=== PATIENT | male | born 1995 | race Caucasian/White ===

== ENCOUNTER 2016-06-26 16:14 | Emergency (ER) | payer OTHER ==
[~2016-06-26] VITALS: Ht 185.4 cm; Wt 72.6 kg
[~2016-06-26 16:14] MED LIST: 'BUSPAR5 MG PO; AMITRIPTYLINE10 MG PO; AUGMENTIN 875 M1 TA1 PO; BENTYL PO; BENTYL10 MG PO; BUSPAR5 MG PO; CARAFATE1 G1 PO; CARAFATE1 GM PO; CELEXA20 MG PO; Carafate1 GM PO; FAMOTIDINE20 M1 PO; FLEXERIL10 MG PO; FLOMAX0.4 MG PO; HYDROCODONE BIT1 T11 PO; IBU-8800 MG PO; KEFLEX500 MG PO; LEVEMIR FLEX100 U/ML SC; MARINOL2.5 M1 PO; MOTRIN800 MG PO; MUCINEX600 MG PO; NAPROSYN500 MG PO; NKHM; NORTRIPTYLINE H10 M1 PO; NORTRIPTYLINE H10 MG PO; NORTRIPTYLINE PO; NOVOLOG FLEX100 U/ML SQ; OMEPRAZOLE40 MG PO; OXYCODONE HCL5 MG PO; PEN NEEDLE1 EAC5 MC; PEN-VK500 MG; PERCOCET 325 MG1 TA2 PO; PERCOCET 325 MG1 TA5 PO; PHENERGAN12.5 MG R; PHENERGAN25 MG R; PREDNISONE10 MG PO; PROTONIX IV40 MG PO; PROTONIX40 MG PO; Percocet 325 MG1 TAB PO; Phenergan25 MG PO; REGLAN5 MG PO; TEST STRIPS1 EACH MC; ULTRAM50 MG PO; VICODIN 5/500 505 MG PO; ZITHROMAX Z PA250 MG PO; ZOFRAN ODT4 MG SL; ZOFRAN4 MG PO; Zofran4 MG PO; [UNRECOGNIZED DRUG - OTHER] SC
[2016-06-26 16:56] LABS: BASO # 0.1 10*3/uL (0.0-0.1); BASO % 1.5 % (0.0-1.0); EOS # 0.1 10*3/uL (0.0-0.4); EOS % 2.2 % (1.0-4.0); HEMATOCRIT 38.8 % (42.0-52.0); HEMOGLOBIN 13.3 g/dl (14.0-18.0); LYMPH # 2.2 10*3/uL (1.3-4.4); LYMPH % 38.1 % (27.0-41.0); MEAN CELL VOLUME 88.2 fl (80.0-94.0); MEAN CORPUSCULAR HGB 30.2 pg (27.0-31.0); MEAN CORPUSCULAR HGB CONC 34.3 g/dl (33.0-37.0); MEAN PLATELET VOLUME 9.7 fl (9.6-12.3); MONO # 0.4 10*3/uL (0.1-1.0); MONO % 7.5 % (3.0-9.0); NEUT # 2.9 10*3/uL (2.3-7.9); NEUT % 50.4 % (47.0-73.0); PLATELET COUNT AUTOMATED 204 10*3/uL (130-400); RED CELL DISTRI WIDTH 12.5 % (0-14.5); WHITE BLOOD COUNT 5.8 10*3/uL (4.8-10.8)
[2016-06-26 17:13] LABS: ALBUMIN 3.7 gm/dl (3.1-4.5); ALKALINE PHOSPHATASE 68 U/L (45-117); BILIRUBIN, TOTAL 0.8 mg/dl (0.2-1.0); BUN 16 mg/dl (7-24); CARBON DIOXIDE 29 mmol/L (21-32); CHLORIDE 104 mmol/L (98-107); EST GLOM FILT AFRICAN AMERICAN > 60 ml/min; GLUCOSE 182 mg/dL (65-99); POTASSIUM 3.7 mmol/L (3.5-5.1); SGOT/AST 19 IU/L (3-35); SGPT/ALT 36 U/L (12-78); SODIUM 141 mmol/L (136-145); TOTAL PROTEIN 6.6 gm/dL (6.4-8.2)
[2016-06-26] MEDS ORDERED: NAPROSYN500 MG PO (18:13)
[2016-06-26] MEDS ORDERED: ZOFRAN4 MG PO (18:13)
== END 2016-06-26 18:24 | disposition home or self-care (01) ==
LOC: ED 16:14
PROVIDERS: Nurse Practitioner Family
DX: S39.011A Strain of muscle, fascia and tendon of abdomen, initial encounter (principal); R03.0 Elevated blood-pressure reading, without diagnosis of hypertension; J45.909 Unspecified asthma, uncomplicated; F41.1 Generalized anxiety disorder; E10.9 Type 1 diabetes mellitus without complications; Z88.8 Allergy status to other drugs, medicaments and biological substances; Z79.899 Other long term (current) drug therapy; X58.XXXA Exposure to other specified factors, initial encounter; Y93.89 Activity, other specified; Y92.89 Other specified places as the place of occurrence of the external cause; Y99.9 Unspecified external cause status

== ENCOUNTER 2016-11-06 08:41 | Emergency (ER) | payer OTHER ==
[~2016-11-06] VITALS: Ht 182.8 cm; Wt 70.3 kg
[2016-11-06 09:27] LABS: BASO # 0.1 10*3/uL (0.0-0.1); BASO % 1.6 % (0.0-1.0); EOS # 0.1 10*3/uL (0.0-0.4); EOS % 2.7 % (1.0-4.0); HEMATOCRIT 42.8 % (42.0-52.0); HEMOGLOBIN 14.3 g/dl (14.0-18.0); LYMPH # 1.8 10*3/uL (1.3-4.4); LYMPH % 41.7 % (27.0-41.0); MEAN CELL VOLUME 87.3 fl (80.0-94.0); MEAN CORPUSCULAR HGB 29.2 pg (27.0-31.0); MEAN CORPUSCULAR HGB CONC 33.4 g/dl (33.0-37.0); MONO # 0.4 10*3/uL (0.1-1.0); MONO % 8.8 % (3.0-9.0); NEUT % 45.2 % (47.0-73.0); PLATELET COUNT AUTOMATED 219 10*3/uL (130-400); RED CELL DISTRI WIDTH 12.4 % (0-14.5); WHITE BLOOD COUNT 4.4 10*3/uL (4.8-10.8)
[2016-11-06 09:34] LABS: PROTHROMBIN TIME 10.6 SECONDS (9.0-12.4)
[2016-11-06 09:37] LABS: BILIRUBIN NEGATIVE (NEGATIVE); BLOOD NEGATIVE (NEGATIVE); CLARITY CLEAR (CLEAR); COLOR YELLOW (YELLOW); GLUCOSE NEGATIVE (NEGATIVE); KETONE NEGATIVE (NEGATIVE); LEUKO ESTERASE NEGATIVE (NEGATIVE); NITRITE NEGATIVE (NEGATIVE); PROTEIN NEGATIVE (NEGATIVE); UROBILINOGEN 0.2 E.U./dl (0.2-1.0)
[2016-11-06 09:41] LABS: ALBUMIN 3.7 gm/dl (3.1-4.5); ALKALINE PHOSPHATASE 68 U/L (45-117); BILIRUBIN, TOTAL 0.3 mg/dl (0.2-1.0); BUN 15 mg/dl (7-24); CARBON DIOXIDE 27 mmol/L (21-32); CHLORIDE 108 mmol/L (98-107); CKMB 0.7 ng/ml (0.5-3.6); CPK 98 U/L (39-308); EST GLOM FILT AFRICAN AMERICAN > 60 ml/min; GLUCOSE 132 mg/dL (65-99); MAGNESIUM 2.4 mg/dL (1.5-2.1); POTASSIUM 4.3 mmol/L (3.5-5.1); SGOT/AST 11 IU/L (3-35); SGPT/ALT 18 U/L (12-78); SODIUM 139 mmol/L (136-145); TOTAL PROTEIN 6.8 gm/dL (6.4-8.2)
[2016-11-06 09:46] LABS: URINE REFLEX COMMENT NO (NO)
[2016-11-06 09:53] LABS: C-REACTIVE PROTEIN < 0.29 MG/DL (0-0.3); TROPONIN I < 0.015 ng/ml (<0.045)
== END 2016-11-06 11:34 | disposition home or self-care (01) ==
LOC: ED 08:41
PROVIDERS: Emergency Medicine
DX: R55 Syncope and collapse (principal); R11.2 Nausea with vomiting, unspecified; E11.9 Type 2 diabetes mellitus without complications; J45.909 Unspecified asthma, uncomplicated; F17.200 Nicotine dependence, unspecified, uncomplicated; F12.10 Cannabis abuse, uncomplicated; Z88.8 Allergy status to other drugs, medicaments and biological substances

== ENCOUNTER 2016-11-21 06:49 | Emergency (ER) | payer OTHER ==
[~2016-11-21] VITALS: Ht 185.4 cm; Wt 74.4 kg
[2016-11-21 07:41] LABS: BUN 16 mg/dl (7-24); CHLORIDE 102 mmol/L (98-107); CREATININE 1.11 mg/dL (0.70-1.30); POTASSIUM 4.3 mmol/L (3.5-5.1); SODIUM 139 mmol/L (136-145)
== END 2016-11-21 08:46 | disposition home or self-care (01) ==
LOC: ED 06:49
PROVIDERS: Emergency Medicine
DX: M79.671 Pain in right foot (principal); M79.672 Pain in left foot; F17.200 Nicotine dependence, unspecified, uncomplicated; F12.10 Cannabis abuse, uncomplicated; J45.909 Unspecified asthma, uncomplicated; E10.65 Type 1 diabetes mellitus with hyperglycemia; K58.9 Irritable bowel syndrome, unspecified; Z88.8 Allergy status to other drugs, medicaments and biological substances; Z79.899 Other long term (current) drug therapy

== ENCOUNTER 2016-11-23 09:03 | Emergency (ER) | payer OTHER ==
[~2016-11-23] VITALS: Ht 185.4 cm; Wt 74.8 kg
== END 2016-11-23 09:24 | disposition home or self-care (01) ==
LOC: ED 09:03
DX: M79.672 Pain in left foot (principal); M79.671 Pain in right foot; Z88.8 Allergy status to other drugs, medicaments and biological substances; F17.200 Nicotine dependence, unspecified, uncomplicated; F12.10 Cannabis abuse, uncomplicated

== ENCOUNTER 2016-11-27 12:31 | Emergency (ER) | payer OTHER ==
[~2016-11-27] VITALS: Wt 74.8 kg
== END 2016-11-27 13:58 | disposition home or self-care (01) ==
LOC: ED 12:31
DX: M79.671 Pain in right foot (principal); M79.672 Pain in left foot; E11.9 Type 2 diabetes mellitus without complications; F17.200 Nicotine dependence, unspecified, uncomplicated; F12.10 Cannabis abuse, uncomplicated; Z88.8 Allergy status to other drugs, medicaments and biological substances

== ENCOUNTER 2017-09-05 07:03 | Inpatient (IN) | payer OTHER ==
[~2017-09-05] VITALS: Ht 185.4 cm; Wt 74.0 kg
[2017-09-05] VITALS (10 sets, daily range): BP systolic 101–188; BP diastolic 53–74
--- NOTE | ~2017-09-05 | CON ---
[place], [place] REPORT OF CONSULTATION NAME: CAROLYN WHITE UNIT #: [id number] ROOM: 403 DOCTOR: LAZARA LANIER MD BIRTHDATE: [birth year] DOS: 09/06/2017 CHIEF COMPLAINT: "I am just so depressed and anxious." HISTORY OF PRESENT ILLNESS: This is a 21-year-old white male who was admitted due to cyclical vomiting syndrome. The patient reportedly went out with a friend of his and began drinking alcohol heavily to the point where he passed out. Upon awakening, he could not remember where he was and his friend told him that he had been throwing up throughout the entire night. He presented then to the hospital to be evaluated for the cyclical vomiting and was admitted to rule out further organic factors and to evaluate him for dehydration and electrolyte imbalance. During the course of his stay, he voiced a complaint of persistent depression and anxiety to which he medicates himself with daily marijuana use. Mother who was present reports that there is a significant family history of both depression and anxiety and she herself has been on both an antidepressant and an anxiolytic. He reports previous psychiatric intervention as a teenager, but has not had any evaluation or treatment for many, many years. He endorses poor sleep with difficulty falling asleep, sleep continuity disturbance, sales order processor awakening, anergia, anhedonia, hopeless, helpless feelings, crying spells, and inability to cope. He also admits to free floating anxiety throughout the day. His only previous medication trials that he could remember were Celexa, Lexapro, and Geodon. PAST MEDICAL HISTORY: Remarkable for asthma, biliary colic, hyperlipidemia, generalized anxiety disorder, irritable bowel syndrome, anemia, nicotine abuse, diabetes. The patient does admit to being a former cigarette smoker and uses marijuana daily. He also consumes alcohol socially. He denies any other illicit drugs. MENTAL STATUS: He is alert and oriented. Mood does seem to be rather depressed. Affect is constricted and he speaks rather softly. He does endorse the neurovegetative symptoms listed above and also endorses multiple anxiety symptoms. There is no presence of hypomania, talha or psychosis. Memory is fully intact. DIAGNOSIS: Major depression, recurrent. PLAN: I will start him on Remeron 15 mg at bedtime. I did discuss with him the pros and cons of the Remeron stating that the Remeron not only will help sleep and appetite, but will also decrease nausea and vomiting and may help some of his physical symptoms. His mother is in the process of getting him set up with Dr. Lara as an outpatient psychiatrist. I would fully agree with this. Followup and also with a counselor as well. [place], [place] REPORT OF CONSULTATION NAME: CAROLYN WHITE [place] UNIT #: [id number] ROOM: 403 DOCTOR: LAZARA LANIER MD BIRTHDATE: [birth year] LAZARA LANIER MD CM:CONSTR:REPORT OF CONSULTATION 7 09/07/17 0042 interface
[2017-09-05 07:36] LABS: BASO # 0.1 10*3/uL (0.0-0.1); BASO % 0.7 % (0.0-1.0); EOS % 0.1 % (1.0-4.0); HEMATOCRIT 49.5 % (42.0-52.0); HEMOGLOBIN 16.6 g/dl (14.0-18.0); LYMPH # 2.8 10*3/uL (1.3-4.4); LYMPH % 15.8 % (27.0-41.0); MEAN CELL VOLUME 90.3 fl (80.0-94.0); MEAN CORPUSCULAR HGB 30.3 pg (27.0-31.0); MEAN CORPUSCULAR HGB CONC 33.5 g/dl (33.0-37.0); MEAN PLATELET VOLUME 10.7 fl (9.6-12.3); MONO # 0.7 10*3/uL (0.1-1.0); MONO % 4.1 % (3.0-9.0); NEUT # 13.9 10*3/uL (2.3-7.9); NEUT % 78.9 % (47.0-73.0); PLATELET COUNT AUTOMATED 265 10*3/uL (130-400); RED BLOOD COUNT 5.48 10*6/uL (4.50-5.90); RED CELL DISTRI WIDTH 12.4 % (0-14.5); WHITE BLOOD COUNT 17.6 10*3/uL (4.8-10.8)
[2017-09-05 07:52] LABS: ALBUMIN 4.6 gm/dl (3.1-4.5); ALKALINE PHOSPHATASE 81 U/L (45-117); BUN 14 mg/dl (7-24); CHLORIDE 103 mmol/L (98-107); CREATININE 1.02 mg/dL (0.70-1.30); LIPASE 68 U/L (73-393); POTASSIUM 3.9 mmol/L (3.5-5.1); SGOT/AST 18 IU/L (3-35); SGPT/ALT 22 U/L (12-78); SODIUM 142 mmol/L (136-145); TOTAL PROTEIN 7.6 gm/dL (6.4-8.2)
[2017-09-05 09:25] LABS: BILIRUBIN NEGATIVE (NEGATIVE); BLOOD NEGATIVE (NEGATIVE); CLARITY CLEAR (CLEAR); COLOR YELLOW (YELLOW); GLUCOSE NEGATIVE (NEGATIVE); KETONE 2+ (NEGATIVE); LEUKO ESTERASE NEGATIVE (NEGATIVE); NITRITE NEGATIVE (NEGATIVE); SPECIFIC GRAVITY >= 1.030 (1.005-1.030); UROBILINOGEN 0.2 E.U./dl (0.2-1.0)
[2017-09-05 09:43] LABS: BACTERIA TRACE; MUCOUS TRACE
[2017-09-05 09:45] LABS: URINE AMPHETAMINES < 1000 (1000ng/ml); URINE BARBITURATES < 200 (200ng/ml); URINE BENZODIAZEPINES < 200 (200ng/ml); URINE CANNABINOIDS (THC) > 50 (50ng/ml); URINE COCAINE < 300 (300ng/ml); URINE METHADONE < 300 (300ng/ml); URINE OPIATES < 300 (300ng/ml)
[2017-09-05 09:46] LABS: URINE PHENCYCLIDINE < 25 (25ng/ml)
[2017-09-06] VITALS: BP 111/53; BP 121/65
[2017-09-06 07:43] LABS: BASO % 0.7 % (0.0-1.0); EOS # 0.1 10*3/uL (0.0-0.4); EOS % 1.9 % (1.0-4.0); LYMPH % 34.4 % (27.0-41.0); MEAN CELL VOLUME 91.3 fl (80.0-94.0); MEAN CORPUSCULAR HGB 30.6 pg (27.0-31.0); MEAN CORPUSCULAR HGB CONC 33.5 g/dl (33.0-37.0); MEAN PLATELET VOLUME 10.7 fl (9.6-12.3); MONO # 0.6 10*3/uL (0.1-1.0); MONO % 9.4 % (3.0-9.0); NEUT # 3.2 10*3/uL (2.3-7.9); NEUT % 53.4 % (47.0-73.0); RED BLOOD COUNT 4.61 10*6/uL (4.50-5.90); RED CELL DISTRI WIDTH 12.6 % (0-14.5); WHITE BLOOD COUNT 5.9 10*3/uL (4.8-10.8)
[2017-09-06 07:49] LABS: HEMATOCRIT 42.1 % (42.0-52.0); HEMOGLOBIN 14.1 g/dl (14.0-18.0); PLATELET COUNT AUTOMATED 185 10*3/uL (130-400)
[2017-09-06 07:56] LABS: ACT PARTIAL THROMBO TIME 23.3 SECONDS (20.8-31.5)
[2017-09-06 08:00] VITALS: BP 115/59
[2017-09-06 08:22] LABS: CHLORIDE 108 mmol/L (98-107); POTASSIUM 3.9 mmol/L (3.5-5.1); SODIUM 140 mmol/L (136-145)
[2017-09-06 08:36] LABS: ALBUMIN 3.3 gm/dl (3.1-4.5); ALKALINE PHOSPHATASE 65 U/L (45-117); BUN 19 mg/dl (7-24); CHOLESTEROL 104 mg/dL (<200); CREATININE 0.93 mg/dL (0.70-1.30); FREE T4 1.05 ng/dl (0.76-1.46); HDL CHOLESTEROL 45 mg/dl (40-60); LDL CHOLESTEROL 42 mg/dL (9-159); PHOSPHOROUS 2.1 mg/dL (2.5-4.9); SGOT/AST 15 IU/L (3-35); SGPT/ALT 19 U/L (12-78); TOTAL PROTEIN 5.8 gm/dL (6.4-8.2); TRIGLYCERIDES 83 mg/dl (<150); VLDL CHOLESTEROL 17 mg/dL (6-40)
[2017-09-06 09:10] LABS: VITAMIN D, 25-HYDROXY 28.8 ng/mL (30-100)
[2017-09-06 12:00] VITALS: BP 121/60
[2017-09-06] MEDS ORDERED: PHENERGAN25 M3 PO (12:11)
[2017-09-06] MEDS ORDERED: MIRTAZAPINE15 M2 PO (12:11)
== END 2017-09-06 13:59 | disposition home or self-care (01) | DRG 563 ==
LOC: ED 07:03 → EDHOLD 11:22 → 4E 11:22
PROVIDERS: Emergency Medicine; Internal Medicine
DX: S39.011A Strain of muscle, fascia and tendon of abdomen, initial encounter (principal); E87.2 Acidosis; I95.9 Hypotension, unspecified; E10.65 Type 1 diabetes mellitus with hyperglycemia; K75.9 Inflammatory liver disease, unspecified; F33.9 Major depressive disorder, recurrent, unspecified; G43.A1 Cyclical vomiting, in migraine, intractable; E86.0 Dehydration; D64.9 Anemia, unspecified; D72.829 Elevated white blood cell count, unspecified; F10.929 Alcohol use, unspecified with intoxication, unspecified; F41.1 Generalized anxiety disorder; K21.9 Gastro-esophageal reflux disease without esophagitis; E78.5 Hyperlipidemia, unspecified; F12.10 Cannabis abuse, uncomplicated; K58.9 Irritable bowel syndrome, unspecified; J45.909 Unspecified asthma, uncomplicated; Z79.4 Long term (current) use of insulin; Z81.8 Family history of other mental and behavioral disorders; Z82.49 Family history of ischemic heart disease and other diseases of the circulatory system; Z83.3 Family history of diabetes mellitus; Z90.49 Acquired absence of other specified parts of digestive tract; F17.210 Nicotine dependence, cigarettes, uncomplicated; X58.XXXA Exposure to other specified factors, initial encounter; Y93.89 Activity, other specified; Y92.89 Other specified places as the place of occurrence of the external cause; Y99.8 Other external cause status

== ENCOUNTER 2017-09-18 18:32 | Emergency (ER) | payer OTHER ==
[~2017-09-18] VITALS: Wt 74.8 kg
[~2017-09-18 18:32] MED LIST changes: +MIRTAZAPINE15 M2 PO; +PHENERGAN25 M3 PO
[2017-09-18] MEDS ORDERED: TESSALON PERLE100 M1 PO (19:06)
[2017-09-18] MEDS ORDERED: OMNICEF300 MG PO (19:06)
== END 2017-09-18 19:15 | disposition home or self-care (01) ==
LOC: ED 18:32
DX: J01.10 Acute frontal sinusitis, unspecified (principal); F12.10 Cannabis abuse, uncomplicated; Z87.891 Personal history of nicotine dependence; Z90.49 Acquired absence of other specified parts of digestive tract; Z88.5 Allergy status to narcotic agent

== ENCOUNTER 2017-10-03 21:12 | Emergency (ER) | payer OTHER ==
[~2017-10-03] VITALS: Ht 185.4 cm; Wt 77.1 kg
[~2017-10-03 21:12] MED LIST changes: +OMNICEF300 MG PO; +TESSALON PERLE100 M1 PO
[2017-10-03] MEDS ORDERED: Motrin,Rufen800 MG PO (22:18)
== END 2017-10-03 22:21 | disposition home or self-care (01) ==
LOC: ED 21:12
DX: S60.212A Contusion of left wrist, initial encounter (principal); F12.10 Cannabis abuse, uncomplicated; Z90.49 Acquired absence of other specified parts of digestive tract; Z87.891 Personal history of nicotine dependence; Z79.4 Long term (current) use of insulin; Z88.5 Allergy status to narcotic agent; W25.XXXA Contact with sharp glass, initial encounter; Y93.89 Activity, other specified; Y92.89 Other specified places as the place of occurrence of the external cause; Y99.9 Unspecified external cause status

== ENCOUNTER 2018-01-02 13:27 | Emergency (ER) | payer OTHER ==
[~2018-01-02] VITALS: Ht 185.4 cm; Wt 74.8 kg
[~2018-01-02 13:27] MED LIST changes: +Motrin,Rufen800 MG PO
[2018-01-02] MEDS ORDERED: GABAPENTIN600 MG PO (13:29)
[2018-01-02 13:54] LABS: BASO # 0.1 10*3/uL (0.0-0.1); BASO % 1.5 % (0.0-1.0); EOS # 0.2 10*3/uL (0.0-0.4); EOS % 3.2 % (1.0-4.0); HEMATOCRIT 44.1 % (42.0-52.0); HEMOGLOBIN 15.2 g/dl (14.0-18.0); LYMPH # 1.9 10*3/uL (1.3-4.4); MEAN CELL VOLUME 88.7 fl (80.0-94.0); MEAN CORPUSCULAR HGB 30.6 pg (27.0-31.0); MEAN CORPUSCULAR HGB CONC 34.5 g/dl (33.0-37.0); MEAN PLATELET VOLUME 10.2 fl (9.6-12.3); MONO # 0.4 10*3/uL (0.1-1.0); MONO % 6.9 % (3.0-9.0); NEUT # 3.3 10*3/uL (2.3-7.9); NEUT % 55.7 % (47.0-73.0); PLATELET COUNT AUTOMATED 204 10*3/uL (130-400); RED BLOOD COUNT 4.97 10*6/uL (4.50-5.90); RED CELL DISTRI WIDTH 12.5 % (0-14.5); WHITE BLOOD COUNT 5.9 10*3/uL (4.8-10.8)
[2018-01-02 14:08] LABS: ALBUMIN 3.9 gm/dl (3.1-4.5); ALKALINE PHOSPHATASE 69 U/L (45-117); BUN 17 mg/dl (7-24); CHLORIDE 108 mmol/L (98-107); POTASSIUM 3.8 mmol/L (3.5-5.1); SGOT/AST 13 IU/L (3-35); SGPT/ALT 19 U/L (12-78); SODIUM 143 mmol/L (136-145); TOTAL PROTEIN 7.1 gm/dL (6.4-8.2)
[2018-01-02 14:12] LABS: BILIRUBIN NEGATIVE (NEGATIVE); BLOOD NEGATIVE (NEGATIVE); CLARITY CLEAR (CLEAR); COLOR YELLOW (YELLOW); GLUCOSE NEGATIVE (NEGATIVE); KETONE NEGATIVE (NEGATIVE); LEUKO ESTERASE NEGATIVE (NEGATIVE); NITRITE NEGATIVE (NEGATIVE); UROBILINOGEN 0.2 E.U./dl (0.2-1.0)
[2018-01-02 14:32] LABS: BACTERIA 2+; MUCOUS 1+
== END 2018-01-02 15:50 | disposition home or self-care (01) ==
LOC: ED 13:27
PROVIDERS: Internal Medicine
DX: R10.32 Left lower quadrant pain (principal); F12.10 Cannabis abuse, uncomplicated; K21.9 Gastro-esophageal reflux disease without esophagitis; E10.9 Type 1 diabetes mellitus without complications; E78.5 Hyperlipidemia, unspecified; Z90.49 Acquired absence of other specified parts of digestive tract; Z98.890 Other specified postprocedural states; Z88.5 Allergy status to narcotic agent; Z87.891 Personal history of nicotine dependence; Z79.4 Long term (current) use of insulin; Z79.899 Other long term (current) drug therapy; Z87.442 Personal history of urinary calculi

== ENCOUNTER 2018-03-12 09:58 | Emergency (ER) | payer SELFPAY ==
[~2018-03-12] VITALS: Ht 185.4 cm; Wt 74.8 kg
--- NOTE | ~2018-03-12 | EKG ---
[place], [place] ELECTROCARDIOGRAM REPORT NAME: CAROLYN WHITE UNIT #: [id number] ROOM: DOCTOR: EPIPHANY DRAFT REPORT BIRTHDATE: [birth year] [facility] Test Date: 2018-03-12 Test Time: 10:38:22 Pat Name: CAROLYN WHITE Department: Room: Gender: Risk Intern: Allyson Buck : 1995 Requested By: EMILIE SUN DNP Order Number: [id number] Reading MD: Omid Ward MD Measurements Intervals [place] Rate: 60 P: 51 MO: 150 QRS: 60 QRSD: 101 T: 50 QT: 418 QTc: 418 Interpretive Statements Sinus arrhythmia RSR' in V1 or V2, probably normal variant Electronically Signed On 03-13-2018 12:25:23 PST by Omid Ward MD CM:EKGRPT:ELECTROCARDIOGRAM REPORT [id number] EMILIE MORA DRAFT REPORT EMILIE SUN DNP
[~2018-03-12 09:58] MED LIST changes: +GABAPENTIN600 MG PO
[2018-03-12 10:49] LABS: BASO # 0.1 10*3/uL (0.0-0.1); BASO % 1.5 % (0.0-1.0); EOS # 0.1 10*3/uL (0.0-0.4); EOS % 1.3 % (1.0-4.0); HEMATOCRIT 45.9 % (42.0-52.0); HEMOGLOBIN 15.7 g/dl (14.0-18.0); LYMPH # 1.7 10*3/uL (1.3-4.4); LYMPH % 28.8 % (27.0-41.0); MEAN CELL VOLUME 88.8 fl (80.0-94.0); MEAN CORPUSCULAR HGB 30.4 pg (27.0-31.0); MEAN CORPUSCULAR HGB CONC 34.2 g/dl (33.0-37.0); MEAN PLATELET VOLUME 10.4 fl (9.6-12.3); MONO # 0.4 10*3/uL (0.1-1.0); MONO % 7.4 % (3.0-9.0); NEUT # 3.6 10*3/uL (2.3-7.9); NEUT % 60.7 % (47.0-73.0); PLATELET COUNT AUTOMATED 220 10*3/uL (130-400); RED BLOOD COUNT 5.17 10*6/uL (4.50-5.90); RED CELL DISTRI WIDTH 12.4 % (0-14.5); WHITE BLOOD COUNT 5.9 10*3/uL (4.8-10.8)
[2018-03-12 10:58] LABS: ACT PARTIAL THROMBO TIME 24.4 SECONDS (20.8-31.5)
[2018-03-12 11:06] LABS: ALBUMIN 3.9 gm/dl (3.1-4.5); ALKALINE PHOSPHATASE 80 U/L (45-117); BUN 14 mg/dl (7-24); CHLORIDE 102 mmol/L (98-107); CREATININE 1.13 mg/dL (0.70-1.30); POTASSIUM 4.1 mmol/L (3.5-5.1); SGOT/AST 41 IU/L (3-35); SGPT/ALT 40 U/L (12-78); SODIUM 135 mmol/L (136-145)
[2018-03-12 11:09] LABS: TROPONIN I < 0.015 ng/ml (<0.045)
[2018-03-12 11:17] LABS: LIPASE 91 U/L (73-393)
[2018-03-12 11:20] LABS: BILIRUBIN NEGATIVE (NEGATIVE); BLOOD NEGATIVE (NEGATIVE); CLARITY SL CLOUDY (CLEAR); COLOR YELLOW (YELLOW); GLUCOSE 3+ (NEGATIVE); KETONE 1+ (NEGATIVE); LEUKO ESTERASE NEGATIVE (NEGATIVE); NITRITE NEGATIVE (NEGATIVE); PH 7.5 (5.0-9.0); SPECIFIC GRAVITY 1.015 (1.005-1.030); UROBILINOGEN 0.2 E.U./dl (0.2-1.0)
[2018-03-12] MEDS ORDERED: BENADRYL25 M2 PO ×2 (13:55→14:09)
[2018-03-12] MEDS ORDERED: PHENERGAN25 M3 PO ×2 (13:55→14:09)
== END 2018-03-12 14:27 | disposition home or self-care (01) ==
LOC: ED 09:58
PROVIDERS: Nurse Practitioner Family
DX: G43.A0 Cyclical vomiting, in migraine, not intractable (principal); F17.200 Nicotine dependence, unspecified, uncomplicated; E10.9 Type 1 diabetes mellitus without complications; Z79.4 Long term (current) use of insulin; Z88.8 Allergy status to other drugs, medicaments and biological substances; Z90.49 Acquired absence of other specified parts of digestive tract

== ENCOUNTER 2018-05-18 22:05 | Emergency (ER) | payer BC, OTHER ==
[~2018-05-18] VITALS: Ht 185.4 cm; Wt 74.8 kg
[~2018-05-18 22:05] MED LIST changes: +BENADRYL25 M2 PO
[2018-05-18] MEDS ORDERED: HUMALOG100 UNIT/1 SQ (22:08)
[2018-05-18] MEDS ORDERED: LEVEMIR FL100 UNIT/1 SQ (22:10)
== END 2018-05-18 22:35 | disposition left against medical advice (07) ==
LOC: ED 22:05
DX: E11.9 Type 2 diabetes mellitus without complications (principal); Z53.21 Procedure and treatment not carried out due to patient leaving prior to being seen by health care provider; Z88.8 Allergy status to other drugs, medicaments and biological substances; Z90.49 Acquired absence of other specified parts of digestive tract; Z87.891 Personal history of nicotine dependence

== ENCOUNTER 2018-08-27 13:16 | Inpatient (IN) | payer BC, OTHER ==
[~2018-08-27] VITALS: Ht 185.4 cm; Wt 81.6 kg
[~2018-08-27 13:16] MED LIST changes: +HUMALOG100 UNIT/1 SQ; +LEVEMIR FL100 UNIT/1 SQ
[2018-08-27 13:19] VITALS: BP 136/72
[2018-08-27 14:11] LABS: BASO # 0.1 10*3/uL (0.0-0.1); EOS % 0.1 % (1.0-4.0); HEMATOCRIT 45.2 % (42.0-52.0); HEMOGLOBIN 15.5 g/dl (14.0-18.0); LYMPH % 12.1 % (27.0-41.0); MEAN CELL VOLUME 89.5 fl (80.0-94.0); MEAN CORPUSCULAR HGB 30.7 pg (27.0-31.0); MEAN CORPUSCULAR HGB CONC 34.3 g/dl (33.0-37.0); MEAN PLATELET VOLUME 10.7 fl (9.6-12.3); MONO # 0.2 10*3/uL (0.1-1.0); MONO % 1.9 % (3.0-9.0); NEUT # 7.3 10*3/uL (2.3-7.9); NEUT % 84.7 % (47.0-73.0); PLATELET COUNT AUTOMATED 205 10*3/uL (130-400); RED BLOOD COUNT 5.05 10*6/uL (4.50-5.90); WHITE BLOOD COUNT 8.6 10*3/uL (4.8-10.8)
[2018-08-27 14:21] LABS: ACT PARTIAL THROMBO TIME 25.1 SECONDS (20.0-32.1); INTERNATIONAL NORM RATIO 0.9 (2.0-3.5)
[2018-08-27 14:26] LABS: ALKALINE PHOSPHATASE 77 U/L (45-117); BUN 18 mg/dl (7-24); CHLORIDE 103 mmol/L (98-107); CREATININE 1.06 mg/dL (0.70-1.30); POTASSIUM 4.5 mmol/L (3.5-5.1); SGOT/AST 14 IU/L (3-35); SGPT/ALT 22 U/L (12-78); SODIUM 136 mmol/L (136-145)
[2018-08-27 15:19] VITALS: BP 123/79
[2018-08-27 15:30] VITALS: BP 128/75
[2018-08-27 17:48] LABS: BILIRUBIN NEGATIVE (NEGATIVE); BLOOD NEGATIVE (NEGATIVE); CLARITY CLEAR (CLEAR); COLOR YELLOW (YELLOW); GLUCOSE 3+ (NEGATIVE); KETONE 3+ (NEGATIVE); LEUKO ESTERASE NEGATIVE (NEGATIVE); NITRITE NEGATIVE (NEGATIVE); PH 5.5 (5.0-9.0); SPECIFIC GRAVITY 1.015 (1.005-1.030); UROBILINOGEN 0.2 E.U./dl (0.2-1.0)
[2018-08-27 17:57] LABS: URINE AMPHETAMINES < 1000 (1000ng/ml); URINE BARBITURATES < 200 (200ng/ml); URINE BENZODIAZEPINES < 200 (200ng/ml); URINE CANNABINOIDS (THC) > 50 (50ng/ml); URINE COCAINE < 300 (300ng/ml); URINE METHADONE < 300 (300ng/ml); URINE OPIATES > 300 (300ng/ml)
[2018-08-27 18:03] LABS: URINE PHENCYCLIDINE < 25 (25ng/ml)
--- NOTE | 2018-08-27 18:53 | NUR ---
PATIENT MOTHER TO THE NURSES STATION AT THIS TIME. MOTHER STATES THAT PATIENT NEEDS MORE TREATMENT AND EVERYTHING WE HAVE GIVEN PATIENT HAS NOT "BROKE HIS CYCLE".
--- NOTE | 2018-08-27 19:08 | NUR ---
DR ROSAS CONTACTED AND WILL BE DOWN TO SEE PATIENT AND MOTHER SHORTLY PER HIM.
--- NOTE | 2018-08-27 19:11 | NUR ---
REPORT TO ALINA CABRERA AT THIS TIME.
--- NOTE | 2018-08-27 21:28 | NUR ---
Time: 2127 A 22 year old MALE admitted to 4E under services of GUI HENDRIX DO. Pt. arrived via stretcher from ER. Chief complaint: VOMITING. LEANN HERNANDEZ
[2018-08-27 21:30] VITALS: BP 118/58
[2018-08-27] MEDS ORDERED: LANTUS SOL100 UNIT/1 SQ (21:37)
[2018-08-27] MEDS ORDERED: LORAZEPAM0.5 MG PO (21:39)
[2018-08-27] MEDS ORDERED: GABAPENTIN600 MG PO (21:40)
[2018-08-27] MEDS ORDERED: MULTIVITAMINS1 EAC5 PO (21:41)
[2018-08-27] MEDS ORDERED: ASPIRIN CHEWABL81 MG PO (21:42)
[2018-08-27] MEDS ORDERED: PEPTO-BISM262 MG/11 PO (21:43)
--- NOTE | 2018-08-27 21:43 | NUR ---
MED REC COMPLETED WITH PATIENT ALERT AND ORIENTED TO PERSON PLACE AND TIME
--- NOTE | 2018-08-27 21:54 | NUR ---
DR ROSAS AWARE OF MED REC BEING COMPLETED
[2018-08-27 22:00] VITALS: BP 118/58
--- NOTE | 2018-08-27 22:32 | NUR ---
PATIENT'S HOME MEDICATIONS TAKEN TO PHARMACY BY MANASA CABRERA. MEDICAL ALERT NECKLACE AND RING TAKEN TO LOCK BOX IN SUPERVISORS OFFICE
[2018-08-28] VITALS: BP 100/49
--- NOTE | 2018-08-28 00:33 | NUR ---
PATIENT RESTING IN BED WITH EYES CLOSED. RESPS EASY AND REGULAR. BED IN LOWEST POSITION, CALL LIGHT IN REACH
--- NOTE | 2018-08-28 03:50 | NUR ---
MEDICATED WITH PRN DILAUDID FOR C/O ABD PAIN RATED 8/10 ON A 0/10 PAIN SCALE
--- NOTE | 2018-08-28 06:07 | NUR ---
PATIENT RESTING IN BED WITH NO S/S OF DISTRESS. DENIES PAIN AT THIS TIME. PREVIOUS MEDICATION EFFECTIVE PER PATIENT
[2018-08-28 06:17] LABS: BASO # 0.1 10*3/uL (0.0-0.1); BASO % 0.6 % (0.0-1.0); EOS # 0.1 10*3/uL (0.0-0.4); EOS % 0.8 % (1.0-4.0); HEMATOCRIT 40.3 % (42.0-52.0); HEMOGLOBIN 13.5 g/dl (14.0-18.0); LYMPH % 29.4 % (27.0-41.0); MEAN CELL VOLUME 90.4 fl (80.0-94.0); MEAN CORPUSCULAR HGB 30.3 pg (27.0-31.0); MEAN CORPUSCULAR HGB CONC 33.5 g/dl (33.0-37.0); MEAN PLATELET VOLUME 10.5 fl (9.6-12.3); MONO # 0.7 10*3/uL (0.1-1.0); MONO % 6.4 % (3.0-9.0); NEUT # 6.5 10*3/uL (2.3-7.9); NEUT % 62.6 % (47.0-73.0); PLATELET COUNT AUTOMATED 199 10*3/uL (130-400); RED BLOOD COUNT 4.46 10*6/uL (4.50-5.90); RED CELL DISTRI WIDTH 12.3 % (0-14.5); WHITE BLOOD COUNT 10.3 10*3/uL (4.8-10.8)
[2018-08-28 06:38] LABS: BUN 12 mg/dl (7-24); CHLORIDE 111 mmol/L (98-107); CREATININE 0.85 mg/dL (0.70-1.30); FREE T4 1.03 ng/dl (0.76-1.46); PHOSPHOROUS 3.1 mg/dL (2.5-4.9); POTASSIUM 3.6 mmol/L (3.5-5.1); SODIUM 143 mmol/L (136-145)
[2018-08-28 06:45] LABS: THYROID STIM HORMONE (HS) 0.546 uIU/ml (0.358-4.75)
--- NOTE | 2018-08-28 07:35 | NUR ---
MEDICATED WITH PRN BENADRYL AND ATIVAN PER ORDERS. PATIENT IS SCREAMING/CRYING STATES HIS BELLY IS KILLING HIM, AND HE WANTS WATER. PATIENT STARTED VOMITING YELLOW WHILE RN IN ROOM.
[2018-08-28 08:00] VITALS: BP 140/74
--- NOTE | 2018-08-28 08:40 | NUR ---
PATIENT RESTING STATES THE ATIVAN HELPED HIM CALM DOWN, BENADRYL HELPED A LITTLE. REQUESTING DILAUDID. WILL MEDICATE WHEN DUE.
--- NOTE | 2018-08-28 08:50 | NUR ---
NURSING CATHETER BUILDER CALLED TO ROOM PER MOTHER REQUEST.
--- NOTE | 2018-08-28 09:00 | NUR ---
Garage Door Service Technician in to talk to patient. Patient states lives at home with mom. There are few steps in the home. Physician: henrik wylie [facility] [place] [facility] none Patient's level of ADLs: INDEPENDENT Patient has working utilities: all working DME: ana Follow-up physician's appointment after d/c: will be made by hospitalist nurse director upon discharge Does patient want to access PORTAL?: no Discharge plan discussed with patient and mom, patient lives at home with mom, he is independent in adls and ambulation, patient states he will be going home when able and denies any home needs, case management will follow. MAYKEL RODRIGUEZ
--- NOTE | 2018-08-28 09:15 | NUR ---
MED BOX RETURNED TO MOTHER FROM PHARMACY.
--- NOTE | 2018-08-28 09:40 | NUR ---
GLADYS RETURNED TO MOTHER FROM NURSING OFFICE.
--- NOTE | 2018-08-28 10:30 | NUR ---
DR. GRULLON HAS ROUNDED, NEW ORDERS RECIEVED.
--- NOTE | 2018-08-28 10:50 | NUR ---
MOTHER AND SON REQUESTING DR. GRULLON TO COME BACK IN ROOM. PATIENT WANTS ATIVAN INCREASED.
--- NOTE | 2018-08-28 11:39 | NUR ---
MEDICATED WITH OTHER .5 OF IV ATIVAN TO EQUAL PATIENT 1MG DOSE AT HOME.
--- NOTE | 2018-08-28 14:00 | NUR ---
STUDENTS ATTEMPTED NEW IV SITE NO SUCCESS.
--- NOTE | 2018-08-28 14:31 | NUR ---
MEDICATED WITH PRN BENADRYL AND DILAUDID PER ORDERS AND REQUEST BY MOTHER AND PATIENT. NEW 20G IV STARTED.
--- NOTE | 2018-08-28 15:40 | NUR ---
pamela and [place].
--- NOTE | 2018-08-28 15:42 | NUR ---
MOTHER TO DESK ASKING FOR CLEAR LIQUID DIET AND CARAFATE ORDER. DR. GRULLON PHONE CALLED ADN SPOKE TO DR. Marcial ROMERO.
[2018-08-28 16:00] VITALS: BP 117/69
--- NOTE | 2018-08-28 17:00 | NUR ---
PATIENT HAD CLEAR LIQUID DIET. TOLERATED.
--- NOTE | 2018-08-28 18:32 | NUR ---
MEDICATED WITH PRN DILAUDID PER ORDER AND REQUEST FOR ABDOMINAL PAIN.
[2018-08-28 20:00] VITALS: BP 115/73
--- NOTE | 2018-08-28 20:09 | NUR ---
1930 RESTING IN BED TALKING WITH MOM. IV FLUIDS CONT. NO N/V NOTED AT PRESENT. NO C/O'S ABD PAIN VOICED. NO DISTRESS NOTED. DIETARY CALLED FOR SUGAR FREE JELLO PER PT REQUSET. TO BRING UP WITH HS SNACKS.
--- NOTE | 2018-08-28 21:45 | NUR ---
0 BENADRYL 50MG IV FOR C/O'S NAUSEA. NO EMESIS NOTED. 0 ATIVAN 1MG IV GIVEN FOR C/O'S ANXIETY. WILL MONITOR
--- NOTE | 2018-08-28 22:12 | NUR ---
RSTING IN BED WITH EYES CLOSED.
--- NOTE | 2018-08-28 22:30 | NUR ---
MEDICATED WITH DILAUDID 0.25MG IV FOR C/O'S ABD PAIN. WILL MONITOR.
--- NOTE | 2018-08-28 22:50 | NUR ---
REPORT RECIEVED FROM RICK MORALES. PATIENT IS SLEEPING COMFORTABLY IN BED. THERE ARE NO OVERT SIGNS OF DISTRESS NOTED. RESPS ARE EASY AND NONLABORED. CALL LIGHT WITHIN REACH, WILL CONTINUE TO MONITOR.
[2018-08-29] VITALS: BP 109/53
--- NOTE | 2018-08-29 00:12 | NUR ---
DR MENSAH CALLED REGARDING PT'S C/O SEVERE ANXIETY. PT WAS PREVIOUSLY ADMINISTERED PRN ATIVAN AT 2120. ORDERS RECIEVED TO GO AHEAD AND GIVE A SECOND DOSE. WILL CONTINUE TO MONITOR.
--- NOTE | 2018-08-29 04:09 | NUR ---
PT MEDICATED WITH PRN DILAUDID FOR C/O PAIN RATED AN 8 ON A SCALE OF 0-10. WILL CONTINUE TO MONITOR.
--- NOTE | 2018-08-29 04:30 | NUR ---
PT IS ASLEEP AT THIS TIME. NO S/S OF DISTRESS NOTED. PRN DILAUDID EFFECTIVE. WILL CONTINUE TO MONITOR.
--- NOTE | 2018-08-29 07:23 | NUR ---
MEDICATED WITH PRN BENADRYL PER ORDER AND REQUEST FOR NAUSEA. WANTING DILAUDID WELL BUT NOT TIME YET WILL MEDICATE WHEN AVAILABLE.
[2018-08-29 08:00] VITALS: BP 110/70
--- NOTE | 2018-08-29 09:00 | NUR ---
case management visits with patient and mom, patient states he will be going home today. mom stated he didn't have any home needs
--- NOTE | 2018-08-29 09:25 | NUR ---
MEDICATED WITH NORCO PER ORDER AND REQUEST. BENADRYL HELPED SOME.
--- NOTE | 2018-08-29 10:27 | NUR ---
ANGEL HELPED A LITTLE, MEDICATED WITH ATIVAN PER ORDER AND REQUEST.
--- NOTE | 2018-08-29 11:30 | NUR ---
ATIVAN HELPED. PATIENT ENCOURAGED TO EAT LUNCH.
[2018-08-29 12:00] VITALS: BP 103/60; BP 129/68
--- NOTE | 2018-08-29 13:50 | NUR ---
PATIENT SOUND ASLEEP ON STOMACH.
[2018-08-29] MEDS ORDERED: NORCO 5-325 TA1 EACH PO (15:07)
[2018-08-29] MEDS ORDERED: Carafate1 GM/10 ML PO (15:07)
--- NOTE | 2018-08-29 15:26 | NUR ---
PATIENT TO BE DISCHARGED TO HOME.
--- NOTE | 2018-08-29 15:36 | NUR ---
SCRIPTS AND DISCHARGE INSTRUCTIONS GIVEN. PATIENT DISCHARGED TO HOME.
== END 2018-08-29 15:36 | disposition home or self-care (01) | DRG 103 ==
LOC: ED 13:16 → 4E 17:22 → EDHOLD 17:22 → 4E 20:40
PROVIDERS: Emergency Medicine; Student in an Organized Health Care Education/Training Program; ADMIT Internal Medicine
DX: G43.A1 Cyclical vomiting, in migraine, intractable (principal); E10.65 Type 1 diabetes mellitus with hyperglycemia; K21.9 Gastro-esophageal reflux disease without esophagitis; E10.9 Type 1 diabetes mellitus without complications; R00.1 Bradycardia, unspecified; F41.1 Generalized anxiety disorder; J45.909 Unspecified asthma, uncomplicated; G43.A0 Cyclical vomiting, in migraine, not intractable; Z79.4 Long term (current) use of insulin

== ENCOUNTER 2018-10-05 09:34 | Inpatient (IN) | payer BC, OTHER ==
[~2018-10-05] VITALS: Ht 185.4 cm; Wt 79.8 kg
--- NOTE | ~2018-10-05 | O ---
[place], [place] OPERATIVE NOTE NAME: CAROLYN WHITE UNIT #: [id number] ROOM: 531 DOCTOR: OSMEL MCNULTY,RJ BIRTHDATE: [birth year] DOS: 10/06/2018 SUBJECTIVE: The patient has presented with recurrent nausea, vomiting, undergoing investigation. PROCEDURE: Today's procedure part of investigation is panendoscopy plus biopsy. PREMEDICATION: Propofol. SCOPE: Olympus forward-viewing gastroscope Q10 video. REPORT: After putting the patient in left lateral position and application of lubricant to the scope, the scope was entered. Under direct visualization, I advanced through the length of esophagus without difficulty. Evidence of gastritis of bile reflux type was noticed. Gastric content was suctioned out. Gastric erosions was noticed. Gastritis appreciated. At greater curvature, a small ulceration was also noticed, photographed. Duodenal bulb, second and third part there was no obstructive pathology. No ulcerative pathology. The patient extubated, tolerated the procedure well. IMPRESSION: Bile reflux gastritis, small tiny ulceration mid gastric pouch, gastric erosions. PLAN AND DISCUSSION: We are going to treat this status with first of all aggressive PPI therapy, double dose Protonix 40 mg IV b.i.d. We are going to continue with the Zofran q.6 hours p.r.n. On the other hand, I believe that the back bone is to improve the motility, Reglan 10 mg at least b.i.d., preferably t.i.d. for the next 2 days is going to be utilized, sucralfate slurry 2 g 2 hours before meals and at bedtime for cytoprotection and pain medication if necessary. As far as further studies, we are going to evaluate for porphobilinogen to assure there is no hint to acute intermittent porphyria as a contributor of his abdominal pain, nausea and vomiting. RJ BOLIVAR MD CM:OPRECORD:OPERATIVE NOTE 23 6 RJ BOLIVAR MD 10/07/18 0406 interface
--- NOTE | ~2018-10-05 | CON ---
[place], [place] REPORT OF CONSULTATION NAME: CAROLYN WHITE [facility] #: [id number] UNIT #: [id number] ROOM: 531 DOCTOR: OSMEL MCNULTYMINESHGEORGE BIRTHDATE: [birth year] DOS: 10/06/2018 GASTROENDOSCOPIC CONSULTATION REPORT HISTORY OF PRESENT ILLNESS: A 22-year-old gentleman who presented with intermittent abdominal pain, repeated cycles of nausea, vomiting. The patient is known with type 1 diabetes mellitus and he has had repeated admissions here. The patient is complaining of mostly left upper quadrant pain, cross abdominal pain, nausea, aggressively emesis repeatedly last episode being a month ago. His white blood cell was 11, H and H of 15 and 46. INR normal, THC positive and his urine comprehensive metabolic panel, electrolyte balance, liver function test normal. Ketones was negative. Abdominal KUB unremarkable. Lipase unremarkable. Ultrasound of the abdomen with nonvisualization of gallbladder, normal abdominal sonogram otherwise reported. PAST MEDICAL HISTORY: Depression, diabetes mellitus, suspected IBS, cyclic nausea, vomiting. PAST SURGICAL HISTORY: Cholecystectomy, endoscopies, wisdom teeth extraction. SOCIAL HISTORY: Marijuana passive smoker. FAMILY HISTORY: Noncontributory. ALLERGIES: GEODON. REVIEW OF SYSTEMS: HEENT: Denies double vision, blurred vision. RESPIRATORY: Denies shortness of breath. CARDIOVASCULAR: Denies chest pain. DIGESTIVE SYSTEM: Recurrent nausea, vomiting. PHYSICAL EXAMINATION: VITAL SIGNS: Stable. HEENT: Within normal limit. NECK: Supple, no thyromegaly, no cervical lymphadenopathy. CHEST: Symmetric anatomy, equal expansion. No wheeze, no rhonchi. HEART: Normal sinus rhythm, no gallop, no murmur. ABDOMEN: Soft. No hepatomegaly. Bowel sounds present. Tenderness across the abdomen and splenic area was mostly expressed. EXTREMITIES: No cyanosis, no pedal edema. NEUROLOGIC: Alert, oriented to time, place, person. Sensory, motor intact. Cranial nerves 2-12 intact. LABORATORY DATA: Labs reviewed, records reviewed. IMPRESSION: Cyclic nausea, vomiting repeated recurrences, the patient with type 1 diabetes mellitus, diabetic gastroparesis on differential. On the other hand, we have to look on more unusual causes for this young man to be suffering particularly with his rest of his life and acute intermittent porphyria is going [place], [place] REPORT OF CONSULTATION NAME: CAROLYN WHITE UNIT #: [id number] ROOM: 531 DOCTOR: OSMLE MCNULTY,RJ BIRTHDATE: [birth year] to be also on differential diagnosis, is not severely anemic; therefore, sickle cell is not typically expressing. His genetic background is also not fitting the picture. However, due to the use and need to further investigate beyond the borders of the box, we have to look elsewhere. As far as the management is concerned, hydration, prokinetics, PPIs, aggressive management until the cycle was broken including Phenergan if needed. We will proceed with EGD. RJ BOLIVAR MD CM:CONSTR:REPORT OF CONSULTATION 23 10/07/18 0354 interface
[~2018-10-05 09:34] MED LIST changes: +ASPIRIN CHEWABL81 MG PO; +Carafate1 GM/10 ML PO; +LANTUS SOL100 UNIT/1 SQ; +LORAZEPAM0.5 MG PO; +MULTIVITAMINS1 EAC5 PO; +NORCO 5-325 TA1 EACH PO; +PEPTO-BISM262 MG/11 PO
[2018-10-05 09:36] VITALS: BP 107/71
--- NOTE | 2018-10-05 09:43 | NUR ---
DR WORKMAN AT BEDSIDE FOR EXAM. PT BECOMES VERY ANGRY. PT STORMS OUT AMBULANCE BAY DOORS SCREAMING "FUCK DR PANIAGUA. I'M FUCKING OUT OF HERE". MOTHER FOLLOWS PT OUT OF DOORS.
--- NOTE | 2018-10-05 10:00 | NUR ---
PT AND HIS MOTHER CAME BACK INTO THE ED AT THIS TIME WITH NURSING DOCUMENT REVIEW SPECIALIST LEANN MA AND R D INTERN TO CONTINUE TO OBTAIN TREATMENT AT THIS TIME.
--- NOTE | 2018-10-05 10:20 | NUR ---
HALDOL ORDERED FOR CYCLIC VOMITING PT REFUSED MEDICATION. DR PANIAGUA IN ROOM DISCUSSING PLAN OF CARE WITH PATIENT. PT THEN STATES I WILL JUST TAKE THE MEDICATION I JUST DONT' LIKE SHOTS.
--- NOTE | 2018-10-05 10:28 | NUR ---
HALDOL 5MG GIVEN DEEP IM PER PHYSICIAN ORDERS.
--- NOTE | 2018-10-05 10:36 | NUR ---
ATIVAN 2MG GIVEN FOR AGITATION, PT SITTING ON THE EDGE OF THE BED CRYING BECAUSE HE WANTS PAIN MEDICATION FOR ABDOMINAL PAIN, MOTHER STATES PT NEEDS TO BE MEDICATED WITH DILAUDID, THAT PAIN MEDICATION WORKS THE BEST. EXPLAINED TO MOTHER AND PT WE WOULD LIKE HIM TO BE MORE CALM AND THEN TREAT THE PAIN. MOTHER VOICED UNDERSTANDING.
[2018-10-05 10:55] LABS: BASO # 0.1 10*3/uL (0.0-0.1); BASO % 0.8 % (0.0-1.0); EOS # 0.1 10*3/uL (0.0-0.4); EOS % 0.6 % (1.0-4.0); HEMATOCRIT 46.4 % (42.0-52.0); HEMOGLOBIN 15.7 g/dl (14.0-18.0); LYMPH # 1.9 10*3/uL (1.3-4.4); LYMPH % 16.1 % (27.0-41.0); MEAN CELL VOLUME 89.2 fl (80.0-94.0); MEAN CORPUSCULAR HGB 30.2 pg (27.0-31.0); MEAN CORPUSCULAR HGB CONC 33.8 g/dl (33.0-37.0); MONO # 0.6 10*3/uL (0.1-1.0); MONO % 4.8 % (3.0-9.0); NEUT # 9.1 10*3/uL (2.3-7.9); NEUT % 77.3 % (47.0-73.0); PLATELET COUNT AUTOMATED 240 10*3/uL (130-400); RED CELL DISTRI WIDTH 12.5 % (0-14.5); WHITE BLOOD COUNT 11.8 10*3/uL (4.8-10.8)
--- NOTE | 2018-10-05 10:57 | NUR ---
PT RESTING IN BED MORE CALM, COOPERATIVE WITH MOTHER AT BEDSIDE. ATIVAN EFFECTIVE.
--- NOTE | 2018-10-05 11:03 | NUR ---
MOTHER IS OUT AT THE NURSES STATION REQUESTING PAIN MEDICATION, DILAUDID. DR PANIAGUA AWARE.
[2018-10-05 11:05] LABS: URINE AMPHETAMINES < 1000 (1000ng/ml); URINE BARBITURATES < 200 (200ng/ml); URINE BENZODIAZEPINES < 200 (200ng/ml); URINE CANNABINOIDS (THC) > 50 (50ng/ml); URINE COCAINE < 300 (300ng/ml); URINE METHADONE < 300 (300ng/ml); URINE OPIATES < 300 (300ng/ml)
[2018-10-05 11:08] LABS: URINE PHENCYCLIDINE < 25 (25ng/ml)
--- NOTE | 2018-10-05 11:10 | NUR ---
TALKED WITH PATIENT, PT STATES HE IS STILL HAVING ABD PAIN AT THIS TIME AND WOULD LIKE TO HAVE SOMETHING FOR PAIN, IT DOES NOT HAVE TO BE A NARCOTIC JUST SOMETHING TO EASE PAIN.
[2018-10-05 11:13] LABS: ALBUMIN 3.9 gm/dl (3.1-4.5); ALKALINE PHOSPHATASE 88 U/L (45-117); BUN 14 mg/dl (7-24); CHLORIDE 105 mmol/L (98-107); SGOT/AST 11 IU/L (3-35); SGPT/ALT 18 U/L (12-78); SODIUM 139 mmol/L (136-145); TOTAL PROTEIN 7.1 gm/dL (6.4-8.2)
[2018-10-05 11:19] LABS: ETHYL ALCOHOL < 3.0 mg/dl (<3)
[2018-10-05 11:30] VITALS: BP 110/68
--- NOTE | 2018-10-05 12:28 | NUR ---
IV KINKED IN RAC UNABLE TO RUN. IV STARTED 20 GAUGE LAC.
[2018-10-05 12:30] VITALS: BP 122/72
--- NOTE | 2018-10-05 12:30 | NUR ---
PT LEFT FOR X RAY UNABLE TO TAKE UPSTAIRS AT THIS TIME.
[2018-10-05 13:00] VITALS: BP 128/63
--- NOTE | 2018-10-05 13:00 | NUR ---
Time: 1300 A 22 year old MALE admitted to 5E under services of ALLYSON PETERS DO, Pt. arrived via stretcher from ER. Chief complaint: N/V. JULI MULLEN D
--- NOTE | 2018-10-05 13:54 | NUR ---
PT MEDICATED WITH DILAUDID FOR C/O ABD PAIN/ AND ZOFRAN FOR NAUSEA, WILL MONITOR MOTHER AT BEDSIDE
--- NOTE | 2018-10-05 14:00 | NUR ---
DR BUTLER NOTIFIED OF CONSULT
--- NOTE | 2018-10-05 15:29 | NUR ---
DR BOLIVAR NOTIIFIED OF CONSULT
[2018-10-05 16:00] VITALS: BP 125/64
[2018-10-05 20:00] VITALS: BP 135/63
--- NOTE | 2018-10-05 20:32 | NUR ---
PT MEDICATED WITH PO NEURONTIN PER ORDER. PT LAYING IN BED, ASLEEP WHEN RN ENTERED ROOM. RN PROMPTED PT TO WAKE UP AND TAKE PILL IF FEELING ABLE. PATIENT OPENS EYES, LOOKS AT MOTHER & THEN THIS RN, AND GRABS STOMACH IN PAIN. RN OFFERS TO MEDICATE PT WITH ANTI-NAUSEA MEDICATION IF NEEDED. PT DENIES. STATES EARLIER DILAUDID HELPED "SOME" BUT STATES IT COMES PAIN IN "WAVES." PATIENT TAKES GABAPENTIN WITH SMALL SIPS OF WATER WITHOUT ISSUE. PATIENT LAYING DOWN IN BED. MOTHER AT BEDSIDE. SURGERY PAPERWORK PROVIDED TO MOTHER TO FILL OUT AT THIS TIME. INSTRUCTED TO NOTIFY RN IF ANY QUESTIONS ARISE.
--- NOTE | 2018-10-05 21:57 | NUR ---
PT REQUESTING IV ZOFRAN EARLY. IV ZOFRAN ADMINISTERED AT THIS TIME, IT HAS BEEN 6 HRS SINCE HIS LAST ADMINISTRATION AT 1348. PT ALSO IS REFUSING INSULIN FOR BSG OG 164 BECAUSE HE IS NPO FOR THE NIGHT. EDUCATED PT THAT HE IS GETTING FLUIDS WITH DEXTROSE, BUT PT STILL REFUSING. ALSO REQUESTING NOT TO BE WOKEN UP IF SLEEPING WHEN PO NEURONTIN IS DUE.
[2018-10-06] VITALS (7 sets, daily range): BP systolic 99–141; BP diastolic 48–82
--- NOTE | 2018-10-06 00:01 | NUR ---
PT REQUESTING "ANXIETY MEDICATION." NOTIFIED OF HOME LORAZEPAM 0.5MG BID PRN. INSTRUCTED TO ORDER MEDICATION TAKEN AT HOME.
--- NOTE | 2018-10-06 00:56 | NUR ---
PT C/O PAIN IN ABDOMEN ALL OVER RATED 10/10. IV DILAUDID ADMINISTERED PER PRN ORDER. PT ALSO C/O NAUSEA & DRY HEAVING. IV PHENERGAN INFUSION INITIATED VIA INFUSION PUMP AT THIS TIME PER ORDER. WILL MONITOR EFFECTIVENESS. CALL LIGHT IN REACH.
--- NOTE | 2018-10-06 01:14 | NUR ---
IV PHENERGAN INFUSION COMPLETE AT THIS TIME. PT ASLEEP IN BED. AROUSES/OPENS EYES TO VERBAL STIMULI BUT CLOSES EYES & NOT ANSWERING WHEN THIS RN ASKS QUESTIONS. WILL REEVALUATE NEED FOR PO ATIVAN AT LATER TIME. NO S/S OF DISTRESS NOTED CURRENTLY.
--- NOTE | 2018-10-06 05:31 | NUR ---
IV DILAUDID GIVEN PER PRN ORDER FOR C/O PAIN IN ABDOMEN RATED 8/10. WILL MONITOR EFFECTIVENESS. SCHEDULED IV ZOFRAN ALSO ADMINISTERED AT THIS TIME. CALL LIGHT LEFT IN REACH.
--- NOTE | 2018-10-06 05:51 | NUR ---
PT REFUSING FULL 15 UNITS CALLED FOR BY SLIDING SCALE FOR BSG OF 301. PT AGREES TO 9 UNITS. 9 UNITS ADMINISTERED SQ BY PATIENT IN ABDOMEN. PATIENT AWARE OF S/S OF HYPOGLYCEMIA & INSTRUCTED TO NOTIFY RN IF ANY NEW SYMPTOMS PRESENT. PT STATES EARLIER ZOFRAN/DILAUDID STARTING TO TAKE EFFECT. WILL CONTINUE TO MONITOR. CALL LIGHT IN REACH.
[2018-10-06 05:54] LABS: BASO # 0.1 10*3/uL (0.0-0.1); BASO % 0.6 % (0.0-1.0); EOS # 0.1 10*3/uL (0.0-0.4); EOS % 1.4 % (1.0-4.0); HEMATOCRIT 47.4 % (42.0-52.0); HEMOGLOBIN 15.6 g/dl (14.0-18.0); LYMPH # 1.5 10*3/uL (1.3-4.4); LYMPH % 18.7 % (27.0-41.0); MEAN CELL VOLUME 90.5 fl (80.0-94.0); MEAN CORPUSCULAR HGB 29.8 pg (27.0-31.0); MEAN CORPUSCULAR HGB CONC 32.9 g/dl (33.0-37.0); MEAN PLATELET VOLUME 10.5 fl (9.6-12.3); MONO # 0.8 10*3/uL (0.1-1.0); MONO % 10.4 % (3.0-9.0); NEUT # 5.4 10*3/uL (2.3-7.9); NEUT % 68.6 % (47.0-73.0); PLATELET COUNT AUTOMATED 221 10*3/uL (130-400); RED BLOOD COUNT 5.24 10*6/uL (4.50-5.90); RED CELL DISTRI WIDTH 12.7 % (0-14.5); WHITE BLOOD COUNT 7.9 10*3/uL (4.8-10.8)
[2018-10-06 06:31] LABS: ALBUMIN 3.3 gm/dl (3.1-4.5); ALKALINE PHOSPHATASE 86 U/L (45-117); BUN 13 mg/dl (7-24); CHLORIDE 103 mmol/L (98-107); CREATININE 1.01 mg/dL (0.70-1.30); PHOSPHOROUS 2.6 mg/dL (2.5-4.9); POTASSIUM 4.1 mmol/L (3.5-5.1); SGOT/AST 13 IU/L (3-35); SGPT/ALT 15 U/L (12-78); SODIUM 138 mmol/L (136-145); TOTAL PROTEIN 6.1 gm/dL (6.4-8.2)
--- NOTE | 2018-10-06 07:30 | NUR ---
SPOKE TO REGARDING PLAN FOR EGD. NO NEW ORDERS RECEIVED.
--- NOTE | 2018-10-06 11:04 | NUR ---
HOLDING PATIENT INSULIN FOR NOW. BS 219 - FLUIDS WERE SWITCHED FROM D5 LR TO NS. ALSO PATIENT IS NPO. WILL RECHECK AT NOON.
--- NOTE | 2018-10-06 14:39 | NUR ---
Loom Changeover Operator in to talk to patient. Patient states lives at HOME with MOM. There are FEW steps in the home. Physician: JESSY HICKMAN Pharmacy: [facility] [place] health services: NONE Patient's level of ADLs: INDEPENDENT Patient has working utilities: [place] DME: NONE Follow-up physician's appointment after d/c: WILL BE MADE BY HOSPITALIST NURSE DIRECTOR ON DISCHARGE Does patient want to access PORTAL?: NO Discharge plan PT STATES HE LIVES AT HOME WITH HIS MOTHER AND IS INDEPENDENT IN HIS CARE. DENIES ANY NEEDS ON DISCHARGE. STATES HE PLANS TO RETURN HOME. WILL CONTINUE TO FOLLOW. WILL HAVE A RIDE HOME PER PT.. KILO VAUGHN
--- NOTE | 2018-10-06 15:06 | NUR ---
C/O PAIN TO MID ABDOMEN OF 10/08. REQUESTS DILAUDID AT THIS TIME. WILL CONT TO MONITOR. CALL LIGHT IN REACH. MOTHER AT BEDSIDE.
[2018-10-06 15:22] LABS: BILIRUBIN NEGATIVE (NEGATIVE); BLOOD NEGATIVE (NEGATIVE); CLARITY CLEAR (CLEAR); COLOR YELLOW (YELLOW); GLUCOSE 2+ (NEGATIVE); KETONE 2+ (NEGATIVE); LEUKO ESTERASE NEGATIVE (NEGATIVE); NITRITE NEGATIVE (NEGATIVE); PH 5.5 (5.0-9.0); SPECIFIC GRAVITY >= 1.030 (1.005-1.030); UROBILINOGEN 0.2 E.U./dl (0.2-1.0)
[2018-10-06 15:33] LABS: BACTERIA TRACE; EPITHELIAL CELLS 0-2; MUCOUS 1+; WBC 0-2 wbc/hpf (0-5)
--- NOTE | 2018-10-06 16:06 | NUR ---
STATES PAIN IS 3/10 TO ABD AFTER DILAUDID. WILL CONT TO MONITOR.
--- NOTE | 2018-10-06 18:00 | NUR ---
DILAUDID GIVEN FOR C/O PAIN TO MID ABD OF 11/08. WILL CONT TO MONITOR. CALL LIGHT IN REACH.
--- NOTE | 2018-10-06 19:00 | NUR ---
DILAUDID EFF FOR PAIN.
--- NOTE | 2018-10-06 19:55 | NUR ---
ASSUMED CARE OF PT. PT OFF FLOOR FOR EGD W/ JAHDI.
--- NOTE | 2018-10-06 21:46 | NUR ---
SCHEDULED IV PHENERGAN INITIATED VIA INFUSION PUMP. PT C/O MILD NAUSEA, BUT STATES IT IS FROM PAIN. RATING PAIN IN ABDOMEN 10/08. IV DILAUDID ADMINISTERED PER PRN ORDER. WILL MONITOR EFFECTIVENESS. CALL LIGHT LEFT IN REACH.
--- NOTE | 2018-10-06 22:10 | NUR ---
PT STATES EARLIER MEDICATIONS BEGINNING TO TAKE EFFECT. WILL MONITOR.
--- NOTE | 2018-10-06 22:51 | NUR ---
EARLIER MEDICATIONS EFFECTIVE PER PT. WILL MONITOR. JUICE PROVIDED PER REQUEST.
[2018-10-07] VITALS: BP 116/79
--- NOTE | 2018-10-07 00:24 | NUR ---
PATIENT MEDICATED WITH PO TYLENOL FOR C/O PAIN IN ABDOMEN RATED 8/10. ALSO MEDICATED WITH PO ATIVAN FOR C/O RESTLESSNESS/ANXIETY. INSTRUCTED TO CALL RN IF MEDICATION INEFFECTIVE. PT VERBALIZES UNDERSTANDING.
--- NOTE | 2018-10-07 02:00 | NUR ---
DILAUDID GIVEN PER ORDER FOR ABD PAIN RATED "8".
[2018-10-07 03:55] VITALS: BP 145/70
--- NOTE | 2018-10-07 04:16 | NUR ---
PT MEDICATED WITH PO TYLENOL PER PRN ORDER FOR C/O PAIN IN ABDOMEN 10/08. PT STATES DILAUDID ONLY HELPS A LITTLE FOR A SHORT PERIOD OF TIME. WILL MONITOR. CALL LIGHT LEFT IN REACH.
--- NOTE | 2018-10-07 05:20 | NUR ---
PT MEDICATED WITH IV DILAUDID PER PRN ORDER FOR C/O ABD PAIN RATED 9/10. RN OFFERED TO CALL DR TO SEE ABOUT ADDITIONAL PAIN MEDICATION. PATIENT DENIES NEED, STATES HE DOES NOT WANT THEM TO TAKE AWAY THE DILAUDID FOR SOMETHING LIKE TORADOL, WHICH HE STATES HAS NEVER WORKED FOR HIM. WILL MONITOR EFFECTIVENESS. CALL LIGHT IN REACH.
[2018-10-07 06:43] LABS: BASO % 0.6 % (0.0-1.0); EOS # 0.2 10*3/uL (0.0-0.4); EOS % 4.5 % (1.0-4.0); HEMATOCRIT 41.4 % (42.0-52.0); LYMPH # 2.8 10*3/uL (1.3-4.4); LYMPH % 58.5 % (27.0-41.0); MEAN CORPUSCULAR HGB 30.4 pg (27.0-31.0); MEAN CORPUSCULAR HGB CONC 33.1 g/dl (33.0-37.0); MEAN PLATELET VOLUME 10.8 fl (9.6-12.3); MONO # 0.5 10*3/uL (0.1-1.0); MONO % 9.7 % (3.0-9.0); NEUT # 1.3 10*3/uL (2.3-7.9); NEUT % 26.5 % (47.0-73.0); PLATELET COUNT AUTOMATED 189 10*3/uL (130-400); RED CELL DISTRI WIDTH 12.7 % (0-14.5); WHITE BLOOD COUNT 4.8 10*3/uL (4.8-10.8)
[2018-10-07 06:48] LABS: HEMOGLOBIN 13.7 g/dl (14.0-18.0)
[2018-10-07 06:51] LABS: ALBUMIN 3.1 gm/dl (3.1-4.5); ALKALINE PHOSPHATASE 67 U/L (45-117); BUN 10 mg/dl (7-24); CHLORIDE 104 mmol/L (98-107); LIPASE 50 U/L (73-393); POTASSIUM 3.6 mmol/L (3.5-5.1); SGOT/AST 10 IU/L (3-35); SGPT/ALT 13 U/L (12-78); SODIUM 139 mmol/L (136-145); TOTAL PROTEIN 5.8 gm/dL (6.4-8.2)
[2018-10-07 08:00] VITALS: BP 123/70
--- NOTE | 2018-10-07 08:03 | NUR ---
PT C/O 12/09 PAIN TO ABD AT THIS TIME AND REQUESTING DILAUDID. GIVEN PER ORDER AT THIS TIME. WILL MONITOR.
--- NOTE | 2018-10-07 11:05 | NUR ---
PT MEDICATED WITH PO ATIVAN AT THIS TIME PER ORDER FOR COMPLAINTS OF ANXIETY. WILL MONITOR FOR EFFECTIVENESS.
--- NOTE | 2018-10-07 11:05 | NUR ---
PT MEDICATED WITH IV DILAUDID AT THIS TIME PER PRN ORDER FOR COMPLAINTS OF 9/10 ABD PAIN; WILL MONITOR.
--- NOTE | 2018-10-07 11:43 | NUR ---
PT STATES THAT PAIN MEDICATION WAS NOT EFFECTIVE. NOTIFIED PHYSICIAN WHEN HE ROUNDED AND PATIENT INFORMED THAT HE HAS STARTED CARAFATE IN ADDITION TO OTHER STOMACH MEDS AND THAT IT SHOULD HELP TO CONTROL THE STOMACH PAIN
--- NOTE | 2018-10-07 12:39 | NUR ---
CONTINUES TO DENY NEEDS ON DISCHARGE. WILL CONTINUE TO FOLLOW.
--- NOTE | 2018-10-07 14:39 | NUR ---
PT MEDICATED WITH NORCO PER ORDER FOR COMPLAINTS OF ABD PAIN 12/09. WILL MONITOR FOR EFFECTIVENESS.
[2018-10-07 16:00] VITALS: BP 140/115
--- NOTE | 2018-10-07 16:55 | NUR ---
PT MEDICATED WITH DILAUDID AT THIS TIME FOR COMPLAINTS OF ABD PAIN 12/09. WILL MONITOR FOR EFFECTIVENESS. CALL LIGHT IN REACH.
--- NOTE | 2018-10-07 17:20 | NUR ---
PT STATES THAT PAIN MEDICATION HAS BEEN SOMEWHAT EFFECTIVE.
--- NOTE | 2018-10-07 19:29 | NUR ---
NORCO WAS GIVEN FOR A PAIN LEVEL OF 6/10. WILL REASSESS PAIN SCALE.
[2018-10-07 20:00] VITALS: BP 139/83
--- NOTE | 2018-10-07 20:30 | NUR ---
NORCO WAS NOT EFFECTIVE PT HAD CALLED REQUESTING DILAUDID 45 MINS AFTER NORCO WAS GIVEN.
--- NOTE | 2018-10-07 20:39 | NUR ---
24 HR chart check completed.
--- NOTE | 2018-10-07 20:48 | NUR ---
PT HAD CALLED STATED THAT NORCO WAS NOT EFFECTIVE. PT REQUESTED THAT HIS DILAUDID BE GIVEN. DILAUDID WAS GIVEN. WILL REASSESS PT'S PAIN LEVEL.
--- NOTE | 2018-10-07 21:15 | NUR ---
DILAUDID WAS EFFECTIVE. PT STATED THAT HE FEELS A LOT BETTER.
[2018-10-08] VITALS: BP 132/75
--- NOTE | 2018-10-08 00:37 | NUR ---
pt medicated w/dilaudid for c/o abd pain 10/08. iv flushed w/out diff. iv drsg changed to ensure patency. call light in reach.
--- NOTE | 2018-10-08 01:00 | NUR ---
DILAUDID WAS EFFECTIVE. PT RESTING COMFORTABLY.
--- NOTE | 2018-10-08 03:36 | NUR ---
NORCO GIVEN FOR A PAIN LEVEL OF 8/10. PT STATES HE IS HAVING ABDOMINAL PAIN. WILL REASSESS.
--- NOTE | 2018-10-08 04:45 | NUR ---
NORCO WAS NOT EFFECTIVE. PT CALLED AND REQUESTED HIS DILAUDID. DILAUDID WAS GIVEN. WILL REASSESS PT.
--- NOTE | 2018-10-08 05:15 | NUR ---
DILAUDID WAS EFFECTIVE FOR PT'S PAIN. PT IS RESTING COMFORTABLY.
[2018-10-08 07:42] VITALS: BP 122/74
--- NOTE | 2018-10-08 08:05 | NUR ---
AT 0806 ADMINISTERED PRN NORCO ORDERED PER PATIENT REQUEST FOR REPORTS OF PAIN OF 8 ON LEFT UPPER QUADRANT ON 0-10 SCALE. PATIENT STATED "SHARP PAIN". REPORTED TO RN. WILL CONTINUE TO MONITOR. CALL LIGHT WITHIN PATIENT REACH. VALENTINO HEMSPN
--- NOTE | 2018-10-08 08:26 | NUR ---
PT REQUESTING INTEREST IN EATING SOLID FOOD.SPOKE TO DR CALERO REGARDING TADVANCING DIET. ORDER RECIEVED.
--- NOTE | 2018-10-08 08:39 | NUR ---
EDUCATION PROVIDED REGARDING PAIN MGMT,PRN MEDS. PT REQUESTING "EXTRA COVERAGE" OF INSULIN. EDUCATED PT REGARDING INSULIN SLIDING SCALE.PT REMINDED OF BS OF 50 T/O NIGHT AND ADVISED I WOULD BE ONLY ADMINISTERING INSULIN PER SLIDING SCALE ONLY.PT AKNOWLEDGED EDUCATION. TEACHBACK PROVIDED.
--- NOTE | 2018-10-08 09:57 | NUR ---
0906 REASSESSED PATIENTS ABDOMINAL PAIN, PATIENTS STATES "PAIN IS AT A 7 NOW" EDUCATED PATIENT ABOUT NONPHARMACOLOGICAL MEASURES TO REDUCE PAIN SUCH RELAXATION AND BREATHING TECHNIQUES. WILL CONTINUE TO MONITOR, CALL LIGHT WITHIN REACH, REPORTED TO RN. VALENTINO HEMSPN
[2018-10-08 11:26] VITALS: BP 133/91
--- NOTE | 2018-10-08 12:46 | NUR ---
ATIVAN 0.5 MG GIVEN FOR C/O ANXIETY.
--- NOTE | 2018-10-08 12:48 | NUR ---
PT STATES HE WILL GO HOME ON DISCHARGE AND HAVE NO NEEDS. WILL CONTINUE TO FOLLOW.
[2018-10-08] MEDS ORDERED: HYDROCODONE-AC1 EAC1 PO (14:03)
[2018-10-08] MEDS ORDERED: PANTOPRAZOLE SO40 MG PO (14:03)
[2018-10-08] MEDS ORDERED: Carafate1 GM/10 ML PO (14:03)
--- NOTE | 2018-10-08 14:45 | NUR ---
Discharge instructions reviewed with patient/family. Patient receptive and verbalizes understanding. Follow-up care arranged. Written instructions given to patient/family. MAXIMO HERRERA
== END 2018-10-08 14:45 | disposition home or self-care (01) | DRG 384 ==
LOC: ED 09:34 → 5E 12:03 → EDHOLD 12:03 → 5E 12:12
PROVIDERS: Emergency Medicine; Internal Medicine; ADMIT Internal Medicine
PROC: 0DJ08ZZ Inspection of Upper Intestinal Tract, Via Natural or Artificial Opening Endoscopic (ICD-10-PCS; principal; 2018-10-06)
DX: K25.3 Acute gastric ulcer without hemorrhage or perforation (principal); K58.9 Irritable bowel syndrome, unspecified; F41.1 Generalized anxiety disorder; K21.9 Gastro-esophageal reflux disease without esophagitis; K29.70 Gastritis, unspecified, without bleeding; E78.5 Hyperlipidemia, unspecified; J45.909 Unspecified asthma, uncomplicated; E10.65 Type 1 diabetes mellitus with hyperglycemia; F12.10 Cannabis abuse, uncomplicated; G43.A1 Cyclical vomiting, in migraine, intractable; F32.9 Major depressive disorder, single episode, unspecified; Z88.8 Allergy status to other drugs, medicaments and biological substances; Z79.82 Long term (current) use of aspirin; Z90.49 Acquired absence of other specified parts of digestive tract; Z83.3 Family history of diabetes mellitus; Z82.49 Family history of ischemic heart disease and other diseases of the circulatory system; Z84.89 Family history of other specified conditions

== ENCOUNTER 2018-10-12 08:00 | Inpatient (IN) | payer BC, OTHER ==
[~2018-10-12] VITALS: Ht 185.4 cm; Wt 79.5 kg
[~2018-10-12 08:00] MED LIST changes: +HYDROCODONE-AC1 EAC1 PO; +PANTOPRAZOLE SO40 MG PO
[2018-10-12 08:04] VITALS: BP 124/93
[2018-10-12 08:44] LABS: BASO # 0.1 10*3/uL (0.0-0.1); BASO % 1.5 % (0.0-1.0); EOS # 0.2 10*3/uL (0.0-0.4); EOS % 2.3 % (1.0-4.0); HEMATOCRIT 45.9 % (42.0-52.0); HEMOGLOBIN 15.8 g/dl (14.0-18.0); LYMPH # 2.9 10*3/uL (1.3-4.4); LYMPH % 42.7 % (27.0-41.0); MEAN CELL VOLUME 88.4 fl (80.0-94.0); MEAN CORPUSCULAR HGB 30.4 pg (27.0-31.0); MEAN CORPUSCULAR HGB CONC 34.4 g/dl (33.0-37.0); MEAN PLATELET VOLUME 10.4 fl (9.6-12.3); MONO # 0.6 10*3/uL (0.1-1.0); MONO % 8.1 % (3.0-9.0); NEUT # 3.1 10*3/uL (2.3-7.9); NEUT % 45.1 % (47.0-73.0); PLATELET COUNT AUTOMATED 251 10*3/uL (130-400); RED BLOOD COUNT 5.19 10*6/uL (4.50-5.90); RED CELL DISTRI WIDTH 12.5 % (0-14.5); WHITE BLOOD COUNT 6.9 10*3/uL (4.8-10.8)
[2018-10-12 09:01] LABS: ALKALINE PHOSPHATASE 79 U/L (45-117); BUN 22 mg/dl (7-24); CHLORIDE 104 mmol/L (98-107); CREATININE 1.14 mg/dL (0.70-1.30); LIPASE 135 U/L (73-393); POTASSIUM 3.7 mmol/L (3.5-5.1); SGOT/AST 12 IU/L (3-35); SGPT/ALT 19 U/L (12-78); SODIUM 139 mmol/L (136-145); TOTAL PROTEIN 7.2 gm/dL (6.4-8.2)
[2018-10-12 11:48] VITALS: BP 94/57
--- NOTE | 2018-10-12 11:49 | NUR ---
PT REMAINS AWAKE AND ALERT. APPEARS MORE COMFORTABLE AT THIS TIME. ABDOMINAL PAIN AND VOMITING HAVE IMPROVED AFTER IV MEDS WERE GIVEN. IV FLUID IS INFUSING. NO DISTRESS NOTED. SILVIANO CABRERA
[2018-10-12 13:00] VITALS: BP 111/71
--- NOTE | 2018-10-12 16:10 | NUR ---
PT'S GLUCOSE AT THIS TIME IS 62, HE HAS BEEN GIVEN KEVIN CHARLENE,CRACKERS,AND PEANUT BUTTER. HE REMAINS ALERT. NO DISTRESS NOTED. SILVIANO CABRERA
[2018-10-12 16:26] VITALS: BP 119/68
[2018-10-12 18:22] VITALS: BP 85/60
--- NOTE | 2018-10-12 18:38 | NUR ---
NOTIFIED OF CONSULT AND ORDERS OBTAINED.
--- NOTE | 2018-10-12 19:12 | NUR ---
NURSE TO NURSE REPORT GIVEN TO THIS NURSE.
--- NOTE | 2018-10-12 20:41 | NUR ---
PATIENT IN BED AWAKE AT THIS TIME. AOX4. RESP EASY AND NONLABORED. SKIN W.P.D. CALL LIGHT WITHIN REACH. RN WILL CONT TO MONITOR.
--- NOTE | 2018-10-12 22:49 | NUR ---
PATIENT IN BED AWAKE AND ALERT ORIENTED. NO COMPLAINTS AT THIS TIME. RESP EASY AND NONLABORED. RN WILL CONT TO MONITOR. CONT PULSE OX IN PLACE
[2018-10-12 22:50] VITALS: BP 114/75
[2018-10-13] VITALS (12 sets, daily range): BP systolic 100–148; BP diastolic 53–87
--- NOTE | 2018-10-13 02:37 | NUR ---
PATIENT RESTING IN BED WITH EYES CLOSED.. CALL LIGHT WITHIN REACH.. RN WILL CONT TO MONITOR.. NO DISTRESS NOTED AT THIS TIME. .
--- NOTE | 2018-10-13 04:30 | NUR ---
PATIENT C.O ABDOMINAL PAIN AT THIS TIME LUQ STATES THE PAIN IS A 9/10 AT THIS TIME.. PATIENTS MANUAL BP WAS 100/58. DR VILLA NOTIFIED OF THIS FINDING AND WAS GIVEN 30 MG OF TORADOL PER DR VILLA REQ INSTEAD OF 0.5MG OF DILAUDID.. RN WILL CONT TO MONITOR PATIENT
[2018-10-13 06:30] LABS: BASO # 0.1 10*3/uL (0.0-0.1); BASO % 1.3 % (0.0-1.0); EOS # 0.2 10*3/uL (0.0-0.4); EOS % 2.8 % (1.0-4.0); HEMATOCRIT 42.6 % (42.0-52.0); HEMOGLOBIN 14.3 g/dl (14.0-18.0); LYMPH # 2.8 10*3/uL (1.3-4.4); LYMPH % 53.8 % (27.0-41.0); MEAN CELL VOLUME 91.4 fl (80.0-94.0); MEAN CORPUSCULAR HGB 30.7 pg (27.0-31.0); MEAN CORPUSCULAR HGB CONC 33.6 g/dl (33.0-37.0); MEAN PLATELET VOLUME 10.3 fl (9.6-12.3); MONO # 0.5 10*3/uL (0.1-1.0); MONO % 9.8 % (3.0-9.0); NEUT # 1.7 10*3/uL (2.3-7.9); NEUT % 32.1 % (47.0-73.0); PLATELET COUNT AUTOMATED 194 10*3/uL (130-400); RED BLOOD COUNT 4.66 10*6/uL (4.50-5.90); RED CELL DISTRI WIDTH 12.7 % (0-14.5); WHITE BLOOD COUNT 5.3 10*3/uL (4.8-10.8)
[2018-10-13 07:01] LABS: CHLORIDE 106 mmol/L (98-107); CHOLESTEROL 135 mg/dL (<200); CREATININE 0.94 mg/dL (0.70-1.30); FREE T4 1.14 ng/dl (0.76-1.46); HDL CHOLESTEROL 53 mg/dl (40-60); LDL CHOLESTEROL 60 mg/dL (9-159); PHOSPHOROUS 2.7 mg/dL (2.5-4.9); POTASSIUM 3.8 mmol/L (3.5-5.1); SODIUM 140 mmol/L (136-145); TRIGLYCERIDES 109 mg/dl (<150); VLDL CHOLESTEROL 22 mg/dL (6-40)
[2018-10-13 07:06] LABS: ACT PARTIAL THROMBO TIME 26.2 SECONDS (20.0-32.1)
[2018-10-13 07:11] LABS: BUN 10 mg/dl (7-24)
--- NOTE | 2018-10-13 07:39 | NUR ---
BLOOD SUGAR WAS 180 PT DIDNT WANT TO TAKE COVERAGE AT THIS TIME STATES SUGAR WAS LOW EARLIER
--- NOTE | 2018-10-13 08:40 | NUR ---
BREAKFAST TRAY HERE CLEAR LIQUID DIET PT IN ROOM ATTEMPTING TO EAT VOICES NO COMPLAINTS CALL LIGHT IN REACH
--- NOTE | 2018-10-13 10:55 | NUR ---
PT TAKEN TO THE FLOOR BY [employer]
[2018-10-13 11:02] LABS: VITAMIN D, 25-HYDROXY 40.4 ng/mL (30-100)
--- NOTE | 2018-10-13 11:19 | NUR ---
.A 22, admitted to , under the services of GUI Vega DO with a diagnosis of . Chief complaint is LLQ PAIN, VOMITING. Patient arrived via stretcher from ER. Monitor applied. Initial assessment completed. Vital signs taken and recorded. GUI VEGA DO notified of admission to the unit. Orders received. See assessment for past medical history, medications and allergies. Patient and/or family oriented to unit. [facility] visitation policy reviewed. Clothing/patient valuable form completed. ADRIEL BRAMBILA
--- NOTE | 2018-10-13 16:01 | NUR ---
Shift chart check completed.
--- NOTE | 2018-10-13 18:49 | NUR ---
BLOOD SUGAR 48 - FEELING DIZZY & WEAK... APPLE JUICE, MILK, KEVIN CHARLENE GIVEN
[2018-10-13] MEDS ORDERED: LORAZEPAM0.5 MG PO (20:32)
--- NOTE | 2018-10-13 20:32 | NUR ---
PATIENT COMPLAINING OF ANXIETY ATTACK. STATES HE TAKES ATIVAN 0.5MG AT HOME. NOT ON MED REC, BUT WAS FILLED IN JUL[place] IN PATIENTS CLAIM HISTORY. NOTIFIED DR. MENSAH, HE STATED HE WOULD TAKE A LOOK AT IT
--- NOTE | 2018-10-13 20:58 | NUR ---
PRN ATIVAN GIVEN FOR PT COMPLAINTS OF ANXIETY. CALL LIGHT WITHIN REACH, WILL MONITOR
[2018-10-14] VITALS: BP 140/74
--- NOTE | 2018-10-14 | NUR ---
PRN MEDICATION APPEARS EFFECTIVE, PT SLEEPING
--- NOTE | 2018-10-14 06:14 | NUR ---
PRN DILAUDID GIVEN FOR PT COMPLAINTS OF 8/. CALL LIGHT WITHIN REACH, WILL MONITOR
[2018-10-14 06:43] LABS: BUN 10 mg/dl (7-24); CHLORIDE 108 mmol/L (98-107); CREATININE 1.06 mg/dL (0.70-1.30); SODIUM 141 mmol/L (136-145)
[2018-10-14 06:48] LABS: POTASSIUM 5.1 mmol/L (3.5-5.1)
--- NOTE | 2018-10-14 07:19 | NUR ---
Shift chart check completed.sleeping during report - ivf infusing
[2018-10-14 08:00] VITALS: BP 114/76
--- NOTE | 2018-10-14 09:00 | NUR ---
Patient Portal Concierge in to talk to patient. Patient states lives at home with mom. There are few steps in the home. Physician: henrik wylie Pharmacy: [facility] health services: none Patient's level of ADLs: INDEPENDENT Patient has working utilities: all working DME: none Follow-up physician's appointment after d/c: will be made by hospitalist nurse director upon discharge Does patient want to access PORTAL?: no Discharge plan discussed with patient, patient lives at home with mom, he is independent in adls and ambulation, patient states he will be going home when able. discussed with him not being able to afford his medication on last admission, he stated he filled one prescription and didn't feel he needed the other two, and doesn't know how much they would cost but didn't feel he could afford them. educated him on filling his prescriptions in the hosptial pharmacy for $4 a prescription, patient stated he would be able to pay for them when he is discharged, educated patient's nurse regarding patient getting prescriptions in the hospital pharmacy. no other needs at this time. MAYKEL RODRIGUEZ
--- NOTE | 2018-10-14 11:42 | NUR ---
DR RHOADES ROUNDED - SPOKE WITH DR BOLIVAR - [facility] CHANGES MADE - SPOKE WITH MOM
[2018-10-14 12:00] VITALS: BP 131/70
--- NOTE | 2018-10-14 12:39 | NUR ---
DR TREVIÑO CALLED WITH PT REQUEST FOR ADDITIONAL 5 UNITS INSULIN IF HE IS GOING TO EAT. OK TO GIVE THIS TIME.
--- NOTE | 2018-10-14 12:40 | NUR ---
IV REMOVED FROM RT ARM D/T EARLY INFILTRATE
--- NOTE | 2018-10-14 12:42 | NUR ---
PRN ATIVAN GIVEN FOR HIGH ANXIETY. GI COCTAIL GIVEN FOR GI UPSET.
[2018-10-14] MEDS ORDERED: HYDROCODONE-AC1 EAC1 PO (13:34)
[2018-10-14] MEDS ORDERED: Phenergan25 MG PO (13:34)
[2018-10-14] MEDS ORDERED: PANTOPRAZOLE SO40 MG PO (13:34)
[2018-10-14] MEDS ORDERED: REGLAN10 M1 PO (13:54)
--- NOTE | 2018-10-14 13:54 | NUR ---
PER THE PATIENT THE GI COCTAIL MADE HIM FEEL A LOT BETTER BUT AFTER EATING CHICKEN & POTATOES HE IS HURTING AND REQUESTED PAIN MEDS. MORPHINE GIVEN
[2018-10-14 16:00] VITALS: BP 132/81
--- NOTE | 2018-10-14 17:00 | NUR ---
PT AMBULATED OUT WITH BEL;ONGINGS TO PHARMACY TO GET MEDS
== END 2018-10-14 17:00 | disposition home or self-care (01) | DRG 384 ==
LOC: ED 08:00 → 5E 10:44 → EDHOLD 10:44 → 5E 10-13 09:04
PROVIDERS: Emergency Medicine; Internal Medicine; ADMIT Internal Medicine
DX: K25.3 Acute gastric ulcer without hemorrhage or perforation (principal); E87.2 Acidosis; E83.41 Hypermagnesemia; I95.9 Hypotension, unspecified; K58.9 Irritable bowel syndrome, unspecified; K21.9 Gastro-esophageal reflux disease without esophagitis; G43.A1 Cyclical vomiting, in migraine, intractable; E10.65 Type 1 diabetes mellitus with hyperglycemia; E10.40 Type 1 diabetes mellitus with diabetic neuropathy, unspecified; J45.909 Unspecified asthma, uncomplicated; F41.1 Generalized anxiety disorder; F32.9 Major depressive disorder, single episode, unspecified; Z88.8 Allergy status to other drugs, medicaments and biological substances; Z87.442 Personal history of urinary calculi; Z90.49 Acquired absence of other specified parts of digestive tract; Z87.891 Personal history of nicotine dependence; Z81.8 Family history of other mental and behavioral disorders; Z83.79 Family history of other diseases of the digestive system; Z82.49 Family history of ischemic heart disease and other diseases of the circulatory system; Z81.3 Family history of other psychoactive substance abuse and dependence; Z83.3 Family history of diabetes mellitus

== ENCOUNTER 2019-03-26 05:03 | Inpatient (IN) | payer BC, OTHER, MEDICAID ==
[~2019-03-26] VITALS: Ht 185.4 cm; Wt 77.1 kg
[~2019-03-26 05:03] MED LIST changes: +REGLAN10 M1 PO
[2019-03-26 05:06] VITALS: BP 129/89
[2019-03-26 06:31] LABS: BASO # 0.1 10*3/uL (0.0-0.1); BASO % 0.4 % (0.0-1.0); EOS # 0.2 10*3/uL (0.0-0.4); EOS % 1.1 % (1.0-4.0); HEMATOCRIT 49.3 % (42.0-52.0); HEMOGLOBIN 16.5 g/dl (14.0-18.0); LYMPH # 1.9 10*3/uL (1.3-4.4); LYMPH % 13.7 % (27.0-41.0); MEAN CORPUSCULAR HGB 29.8 pg (27.0-31.0); MEAN CORPUSCULAR HGB CONC 33.5 g/dl (33.0-37.0); MEAN PLATELET VOLUME 10.4 fl (9.6-12.3); MONO # 0.9 10*3/uL (0.1-1.0); MONO % 6.3 % (3.0-9.0); NEUT # 10.6 10*3/uL (2.3-7.9); NEUT % 78.1 % (47.0-73.0); PLATELET COUNT AUTOMATED 266 10*3/uL (130-400); RED BLOOD COUNT 5.54 10*6/uL (4.50-5.90); RED CELL DISTRI WIDTH 12.8 % (0-14.5); WHITE BLOOD COUNT 13.6 10*3/uL (4.8-10.8)
[2019-03-26 06:45] LABS: ALBUMIN 4.4 gm/dl (3.1-4.5); ALKALINE PHOSPHATASE 82 U/L (45-117); BUN 17 mg/dl (7-24); CHLORIDE 104 mmol/L (98-107); CREATININE 1.34 mg/dL (0.70-1.30); POTASSIUM 4.2 mmol/L (3.5-5.1); SGOT/AST 19 IU/L (3-35); SGPT/ALT 26 U/L (12-78); SODIUM 136 mmol/L (136-145); TOTAL PROTEIN 7.7 gm/dL (6.4-8.2)
--- NOTE | 2019-03-26 07:53 | NUR ---
PT ASSISTED TO BATHROOM VIA WHEELCHAIR PT ACTIVELY VOMITING PT ASSISTED BACK TO BED RAILS UP X 2 BED IN LOWEST POSITION CALL LAINEZ IN REACH MOTHER AT BEDSIDE
--- NOTE | 2019-03-26 08:12 | NUR ---
PT NO LONGER VOMITING PT GIVEN PILLOW AND WARM BLANKET X 2
[2019-03-26 08:13] VITALS: BP 114/56
--- NOTE | 2019-03-26 08:26 | NUR ---
PT UNABLE TO PROVIDE URINE SAMPLE AT THIS TIME
--- NOTE | 2019-03-26 08:32 | NUR ---
SPOKE WITH DR WELLS PER MOTHERS REQUEST ADVISED DR WELLS PT NO LONER VOMITING HOWEVER PT STILL WITH UNSTEADY GAIT AND UNABLE
--- NOTE | 2019-03-26 08:59 | NUR ---
MEDICAL RECORD LIBRARIANS TEACHER received phone call from patients mother Eliza. Patients mothers has concerns over the patient being admiited to this facility. Patients mother stated she does not feel safe leaving the patient at this facility because the patient is "half sedated" and put the bed rail down and attempted to climb out of the bed. Patients mother stated that the patient has Sicklet Vomiting Syndrome and has only been a diabetic for approximately 2 years. Patients mother stated she feels there will be a lack of communication between herself and the admitting doctors about the patients care. MEDICAL RECORD LIBRARIANS TEACHER informed her the doctors and Nursing staff are very good about keeping an open line of communication with patients family memebers when neeeded. Per Patients mother, patient is currently residing in [facility], and has been seen at [facility] approximately 1-2 months ago for Tx for patients Sicklet Vomiting Syndrome. BRADY to follow. -BRADY Miguel
--- NOTE | 2019-03-26 09:40 | NUR ---
PT REQUESTED BATHROOM VISIT PT WALKED TO BATHROOM BETWEEN ROOMS 4 AND 5 PT ABLE TO AMBULATE UNDER SELF CONTROL PT POLITE AND REQUESTED SOMETHING TO DRINK PT PROVIDED 2 ORANGE DRINKS PT HAD NO OTHER REQUESTS AT THIS TIME
--- NOTE | 2019-03-26 09:45 | NUR ---
UNABLE TO REACH ARIAN CABRERA LEFT MESSAGE WITH RAFAELA DUKES TO CALL BACK
[2019-03-26 10:15] VITALS: BP 115/70
--- NOTE | 2019-03-26 10:15 | NUR ---
REPORT RECEIVED FROM ER NURSE
--- NOTE | 2019-03-26 10:15 | NUR ---
Time: 1014 A 23 year old MALE admitted to under services of KENY SAHNI DO. Pt. arrived via stretcher from ER. Chief complaint: GYPERGLYCEMIA. ARIAN VAUGHN
[2019-03-26] MEDS ORDERED: TRESIBA FL100 UNIT/1 SC (10:33)
--- NOTE | 2019-03-26 10:33 | NUR ---
Attempted to call pt mother for list of current medications. No answer at number listed. Called [facility] pharmacy. Spoke with pharmacist and she states that they have gabapentin, humalog, and tresiba. States those are the only things pt has had filled recently there.
--- NOTE | 2019-03-26 10:40 | NUR ---
Pt mother in room, states pt also takes reglan, protonix and carafate. States pt takes buspar but last script was only for 7 days this past December.
--- NOTE | 2019-03-26 11:15 | NUR ---
PATIENT UNABLE TO SIT STILL IN BED, CONSTANTLY STANDING UP, VERY UNSTEADY. MOTHER IS CONCERNED THAT THIS IS NOT HIS NORMAL WHEN HE IS ILL. DR TONY AWARE.
--- NOTE | 2019-03-26 11:25 | NUR ---
ZOFRAN ADMINISTERED FOR NAUSEA AND VOMITING- WILL MONITOR.
--- NOTE | 2019-03-26 11:30 | NUR ---
DR CHEN AWARE OF ORTHOSTATIC BLOOD PRESSURE.
--- NOTE | 2019-03-26 11:35 | NUR ---
DR CHEN AT BEDSIDE WITH PATIENT. NEW ORDERS RECEIVED. PATIENT IS STILL VERY ANXIOUS. C/O NAUSEA AND PAIN IN LEFT LUQ.
--- NOTE | 2019-03-26 11:48 | NUR ---
1 TIME DOES OF ZOFRAN ADMINISTERED PER ORDER. WILL MONITOR.
--- NOTE | 2019-03-26 11:57 | NUR ---
1 TIME DOES OF REGLAN ADMINISTERED PER ORDER. WILL MONITOR FOR EFFECTIENESS.
[2019-03-26 12:00] VITALS: BP 115/70
[2019-03-26 12:01] LABS: BILIRUBIN NEGATIVE (NEGATIVE); BLOOD NEGATIVE (NEGATIVE); CLARITY CLEAR (CLEAR); COLOR YELLOW (YELLOW); GLUCOSE 2+ (NEGATIVE); KETONE 3+ (NEGATIVE); LEUKO ESTERASE NEGATIVE (NEGATIVE); NITRITE NEGATIVE (NEGATIVE); SPECIFIC GRAVITY 1.015 (1.005-1.030); UROBILINOGEN 0.2 E.U./dl (0.2-1.0)
[2019-03-26 12:10] LABS: RBC 0-2 rbc/hpf (0-2); WBC 0-2 wbc/hpf (0-5)
[2019-03-26 12:11] LABS: URINE AMPHETAMINES < 1000 (1000ng/ml); URINE BARBITURATES < 200 (200ng/ml); URINE BENZODIAZEPINES < 200 (200ng/ml); URINE CANNABINOIDS (THC) > 50 (50ng/ml); URINE COCAINE < 300 (300ng/ml); URINE METHADONE < 300 (300ng/ml); URINE OPIATES < 300 (300ng/ml); URINE PHENCYCLIDINE < 25 (25ng/ml)
--- NOTE | 2019-03-26 12:15 | NUR ---
DEMEROL, ATIVAN, AND 6 UNITS OF HUMALOG ADMINISTERED PRESSCRIBED. WILL MONITOR FOR EFFECTIVENESS.
--- NOTE | 2019-03-26 12:55 | NUR ---
PATIENT RESTING IN BED WITH EYES CLOSED AT THIS TIME. NO DISTRESS NOTED. RESPIRATIONS EASY AND UNLABORED. BED ALARM ON AND CALL LIGHT IN REACH. WILL MONITOR.
--- NOTE | 2019-03-26 13:15 | NUR ---
PATIENT REMAINS RESTING WITH EYES CLOSED AT THIS TIME. NO DISTRESS NOTED. BED ALARM ON AND CALL LIGHT IN REACH.
--- NOTE | 2019-03-26 14:15 | NUR ---
IV started left wrist with #20 protective cath after 1 attempts. Site prepped with Chloroprep. Sterile dressing applied. Patient tolerated procedure well. IV infusing at 125 cc/hr. ARIAN VAUGHN
--- NOTE | 2019-03-26 14:25 | NUR ---
IV started left wrist with #20 angiocath after 1 attempts. The IV site was prepped with Chloraprep. Heparin lock attached. IV solution NS infusing at 125 cc/hr. Sterile dressing applied. Patient tolerated precedure well. Procedure performed according to [facility] policy & procedure. IV HL REMAINS TO MANUEL. IV pump beeping often due to site in MANUEL and pt bending arm so new site restarted AVI HER
--- NOTE | 2019-03-26 14:37 | NUR ---
PATIENT MEDICATED WITH ATIVAN PRESCRIBED. WILL MONITOR FOR EFFECTIVENESS.
--- NOTE | 2019-03-26 15:01 | NUR ---
PATIENT STANDING AT SIDE OF BED, PATIENT IS CONFUSED AND UNAWARE OF WHERE HE IS. PATIENT REORIENTED AND LAYED BACK DOWN IN BED. NO COMPLAINTS OF PAIN AT THIS TIME. BED ALARM ON. WILL MONITOR.
--- NOTE | 2019-03-26 15:37 | NUR ---
PATIENT REMAINS RESTLESS AT TIMES. CALM AND LAYING DOWN, THEN STANDS AT SIDE OF BED LOOKING FOR HIS DOG. CAN NOT KEEP EYES OPEN. COMPLAINS OF EXCESSIVE THIRST. BED ALARM REMAINS ON AND CALL LIGHT IN REACH. WILL MONITOR.
[2019-03-26 16:00] VITALS: BP 107/67
--- NOTE | 2019-03-26 16:05 | NUR ---
DR MENSAH CALLED WITH PATIENT'S BS OF 271, WITH NO COVERAGE ORDERED. ALSO SPOKE WITH ABOUT PATIENT COGNITIVE STATUS AND PT BEING MORE CONFUSED AND GRABBING FOR THINGS IN THE AIR. AWAITING NEW ORDERS.
--- NOTE | 2019-03-26 16:15 | NUR ---
DR MENSAH CALLED AGAIN TO ASSESS PATIENT AT BEDSIDE.
--- NOTE | 2019-03-26 16:20 | NUR ---
DR MENSAH AND DR LINDQUIST AT BEDSIDE WITH PATIENT.
--- NOTE | 2019-03-26 16:30 | NUR ---
PATIENT TRANSPORTED TO ICU VIA BED PER ORDER.
--- NOTE | 2019-03-26 16:35 | NUR ---
PATIENT ARRIVED VIA BED FROM 4E. PATIENT IS CONFUSED AND ANXIOUS WHEN AWAKE BUT FALLS ASLIIP MULTIPLE TIMES DURING ASSESSMENT. PATIENT C/O OF NAUSEA/VOMITING WITH EMESISX1 THAT IS BILE COLORED. CALL LIGHT WITHIN REACH NSR ON MONITOR. SEE ASSESSMENT.
[2019-03-26 16:39] LABS: BUN 20 mg/dl (7-24); CHLORIDE 106 mmol/L (98-107); CREATININE 1.07 mg/dL (0.70-1.30); POTASSIUM 4.2 mmol/L (3.5-5.1); SODIUM 136 mmol/L (136-145)
--- NOTE | 2019-03-26 17:08 | NUR ---
DR BOLIVAR CALLED FOR CONSULT.NO NEW ORDERS AT THIS TIME.
[2019-03-26 17:42] LABS: ABG BASE EXCESS -1.9 mmol/L (-2.0-2.0); ARTERIAL BLOOD GAS PH 7.415 (7.35-7.45)
[2019-03-26 20:00] VITALS: BP 120/56
[2019-03-27] VITALS (9 sets, daily range): BP systolic 98–126; BP diastolic 45–74
--- NOTE | 2019-03-27 00:59 | NUR ---
PATIENT HAS HAD NO VOMITING SINCE 7PM ON 03/26 BUT DOES HAVE COMPLAINTS OF NAUSEA. PATIENT IS STILL CONFUSED AND AT TIMES MAKES COMMENTS THAT MAKES NO SENSE. SUCH WHEN CHECKING BP HE THIKS WHEN IT SQUEEZES HIS ARM HE GOT SHOT IN THE ARM. PATIENT THINKS PEOPLE ARE OUT TO GET HIM.
[2019-03-27 04:56] LABS: BASO # 0.1 10*3/uL (0.0-0.1); BASO % 0.5 % (0.0-1.0); EOS # 0.1 10*3/uL (0.0-0.4); EOS % 0.7 % (1.0-4.0); HEMATOCRIT 40.5 % (42.0-52.0); HEMOGLOBIN 13.6 g/dl (14.0-18.0); LYMPH # 3.5 10*3/uL (1.3-4.4); LYMPH % 34.9 % (27.0-41.0); MEAN CELL VOLUME 89.6 fl (80.0-94.0); MEAN CORPUSCULAR HGB 30.1 pg (27.0-31.0); MEAN CORPUSCULAR HGB CONC 33.6 g/dl (33.0-37.0); MEAN PLATELET VOLUME 10.5 fl (9.6-12.3); MONO # 1.1 10*3/uL (0.1-1.0); MONO % 10.8 % (3.0-9.0); NEUT # 5.3 10*3/uL (2.3-7.9); NEUT % 52.8 % (47.0-73.0); PLATELET COUNT AUTOMATED 219 10*3/uL (130-400); RED BLOOD COUNT 4.52 10*6/uL (4.50-5.90); RED CELL DISTRI WIDTH 13.1 % (0-14.5)
[2019-03-27 05:15] LABS: ALBUMIN 3.5 gm/dl (3.1-4.5); ALKALINE PHOSPHATASE 68 U/L (45-117); BUN 18 mg/dl (7-24); CHLORIDE 110 mmol/L (98-107); CREATININE 0.99 mg/dL (0.70-1.30); PHOSPHOROUS 3.1 mg/dL (2.5-4.9); POTASSIUM 3.7 mmol/L (3.5-5.1); SGOT/AST 9 IU/L (3-35); SGPT/ALT 18 U/L (12-78); SODIUM 144 mmol/L (136-145); TOTAL PROTEIN 6.2 gm/dL (6.4-8.2)
--- NOTE | 2019-03-27 07:48 | NUR ---
PATIENT SITTING UP IN BED AT THIS TIME. PATIENT IS ALERT AND ORIENTED AND ABLE TO ANSWER QUESTIONS APPROPRIATELY THIS MORNING. PATIENT DOESN'T REMEMBER MUCH OF THE EVENTS THAT OCCURRED YESTERDAY. PT C/O LUQ ABDOMINAL PAIN. PATIENT REPORTS LESS NAUSEA THEN PREVIOUSLY REPORTED. PATIENT IS ABLE TO STAND UP AT THE BEDSIDE AND USE URINAL WITH ANY DIZZINESS, DISCOMFORT OR SHORTNESS OF BREATHE. NSR ON ROTARY DRILLER HELPER, CALL LIGHT WITHIN REACH.
--- NOTE | 2019-03-27 08:42 | NUR ---
NORCO AND ATIVAN GIVEN AT THIS TIME FOR ANXIETY AND LUQ ABDOMINAL PAIN. PATIENT DESCRIBES PAIN A DULL ACHE 09/08 WILL CONTINUE TO MONITOR AND REASSESS.
--- NOTE | 2019-03-27 08:43 | NUR ---
SPOKE WITH DR. BOLIVAR PATIENT WILL HAVE EGD TODAY. PATIENT WILL BE KEPT NPO AT THIS TIME.
--- NOTE | 2019-03-27 13:10 | NUR ---
PATIENT TAKEN DOWN TO SURGERY FOR EGD PROCEDURE VIA BED. PATIENT WILL BE TRANSFERRED TO [facility] BY SURGERY. SURGERY AWARE OF MOVE. [id number] REPORT GIVEN TO GRETTA CABRERA.
--- NOTE | 2019-03-27 14:39 | NUR ---
RECEIVED REPORT FROM SURGERY AND AWAITING PTS ARRIVAL TO THE FLOOR.
--- NOTE | 2019-03-27 15:07 | NUR ---
Epic Willow Specialist in to talk to patient. Patient states lives at HOME with ROOM MATE. There are FEW steps in the home. Physician: JESSY HICKMAN Pharmacy: [facility] [place] health services: NONE Patient's level of ADLs: INDEPENDENT Patient has working utilities: YES DME: NONE Follow-up physician's appointment after d/c: WILL BE MADE BY HOSPITALIST NURSE DIRECTOR ON DISCHARGE Does patient want to access PORTAL?: NO Discharge plan PT LIVES AT HOME WITH A ROOM MATE HE WILL NOT NAME. STATES HE IS INDEPENDENT IN HIS CARE AND WILL RETURN HOME WHEN MEDICALLY STABLE. DENIES NEEDS ON DISCHARGE. WILL CONTINUE TO FOLLOW. STATES HE WILL HAVE A RIDE. KILO VAUGHN
[2019-03-27] MEDS ORDERED: Carafate1 GM/10 ML PO (17:22)
[2019-03-27] MEDS ORDERED: PANTOPRAZOLE SO40 MG PO (17:22)
[2019-03-27] MEDS ORDERED: REGLAN10 M1 PO (17:22)
--- NOTE | 2019-03-27 18:00 | NUR ---
Discharge instructions reviewed with patient/family. Patient receptive and verbalizes understanding. Follow-up care arranged. Written instructions given to patient/family. IV TAKEN OUT. GRETTA RAMEY
[2019-03-28] MEDS ORDERED: ZOFRAN4 MG PO (11:41)
[2019-03-28] MEDS ORDERED: ATIVAN1 MG PO (11:41)
== END 2019-03-27 18:15 | disposition home or self-care (01) | DRG 917 ==
LOC: ED 05:03 → ICCU 08:42 → 5E 08:42 → EDHOLD 08:42 → 4E 09:05 → ICCU 16:28 → 5E 03-27 12:57
PROVIDERS: Emergency Medicine; Student in an Organized Health Care Education/Training Program; ADMIT Internal Medicine
PROC: 0DB68ZX Excision of Stomach, Via Natural or Artificial Opening Endoscopic, Diagnostic (ICD-10-PCS; principal; 2019-03-27)
DX: T40.7X1A Poisoning by cannabis (derivatives), accidental (unintentional), initial encounter (principal); N17.0 Acute kidney failure with tubular necrosis; F33.9 Major depressive disorder, recurrent, unspecified; D72.829 Elevated white blood cell count, unspecified; F41.1 Generalized anxiety disorder; J45.909 Unspecified asthma, uncomplicated; K21.9 Gastro-esophageal reflux disease without esophagitis; F12.188 Cannabis abuse with other cannabis-induced disorder; E10.65 Type 1 diabetes mellitus with hyperglycemia; R11.15 Cyclical vomiting syndrome unrelated to migraine; E10.40 Type 1 diabetes mellitus with diabetic neuropathy, unspecified; K58.9 Irritable bowel syndrome, unspecified; E10.43 Type 1 diabetes mellitus with diabetic autonomic (poly)neuropathy; K31.84 Gastroparesis; K29.60 Other gastritis without bleeding; Y92.89 Other specified places as the place of occurrence of the external cause; Z88.8 Allergy status to other drugs, medicaments and biological substances; Z87.442 Personal history of urinary calculi; Z90.49 Acquired absence of other specified parts of digestive tract; Z87.891 Personal history of nicotine dependence; Z83.3 Family history of diabetes mellitus; Z81.8 Family history of other mental and behavioral disorders; Z81.3 Family history of other psychoactive substance abuse and dependence; Z82.49 Family history of ischemic heart disease and other diseases of the circulatory system; Z83.79 Family history of other diseases of the digestive system

== ENCOUNTER 2019-03-28 08:58 | Emergency (ER) | payer BC, OTHER, MEDICAID ==
[~2019-03-28] VITALS: Ht 185.4 cm; Wt 79.4 kg
[~2019-03-28 08:58] MED LIST changes: +TRESIBA FL100 UNIT/1 SC
[2019-03-28 09:23] LABS: BASO # 0.1 10*3/uL (0.0-0.1); BASO % 0.7 % (0.0-1.0); EOS # 0.1 10*3/uL (0.0-0.4); EOS % 1.2 % (1.0-4.0); HEMATOCRIT 41.5 % (42.0-52.0); HEMOGLOBIN 14.3 g/dl (14.0-18.0); LYMPH # 2.5 10*3/uL (1.3-4.4); LYMPH % 33.9 % (27.0-41.0); MEAN CELL VOLUME 89.1 fl (80.0-94.0); MEAN CORPUSCULAR HGB 30.7 pg (27.0-31.0); MEAN CORPUSCULAR HGB CONC 34.5 g/dl (33.0-37.0); MEAN PLATELET VOLUME 10.1 fl (9.6-12.3); MONO # 0.5 10*3/uL (0.1-1.0); MONO % 7.5 % (3.0-9.0); NEUT # 4.1 10*3/uL (2.3-7.9); NEUT % 56.6 % (47.0-73.0); PLATELET COUNT AUTOMATED 250 10*3/uL (130-400); RED BLOOD COUNT 4.66 10*6/uL (4.50-5.90); RED CELL DISTRI WIDTH 12.8 % (0-14.5); WHITE BLOOD COUNT 7.2 10*3/uL (4.8-10.8)
[2019-03-28 09:38] LABS: ALBUMIN 4.2 gm/dl (3.1-4.5); ALKALINE PHOSPHATASE 77 U/L (45-117); BUN 14 mg/dl (7-24); CHLORIDE 105 mmol/L (98-107); CREATININE 1.13 mg/dL (0.70-1.30); LIPASE 118 U/L (73-393); POTASSIUM 3.7 mmol/L (3.5-5.1); SGOT/AST 10 IU/L (3-35); SGPT/ALT 19 U/L (12-78); SODIUM 137 mmol/L (136-145); TOTAL PROTEIN 7.1 gm/dL (6.4-8.2)
[2019-03-28] MEDS ORDERED: ATIVAN1 MG PO (11:41)
[2019-03-28] MEDS ORDERED: ZOFRAN4 MG PO (11:41)
== END 2019-03-28 11:50 | disposition home or self-care (01) ==
LOC: ED 08:58
PROVIDERS: Emergency Medicine
DX: K29.70 Gastritis, unspecified, without bleeding (principal); F41.9 Anxiety disorder, unspecified; E10.65 Type 1 diabetes mellitus with hyperglycemia; J45.909 Unspecified asthma, uncomplicated; K21.9 Gastro-esophageal reflux disease without esophagitis; E10.40 Type 1 diabetes mellitus with diabetic neuropathy, unspecified; Z79.4 Long term (current) use of insulin; Z87.891 Personal history of nicotine dependence; Z88.8 Allergy status to other drugs, medicaments and biological substances

== ENCOUNTER 2019-08-05 10:19 | Inpatient (IN) | payer OTHER ==
[~2019-08-05] VITALS: Ht 185.4 cm; Wt 81.2 kg
[~2019-08-05 10:19] MED LIST changes: +ATIVAN1 MG PO
[2019-08-05 10:22] VITALS: BP 118/82
[2019-08-05 11:26] LABS: BASO # 0.1 10*3/uL (0.0-0.1); BASO % 0.8 % (0.0-1.0); EOS # 0.1 10*3/uL (0.0-0.4); EOS % 0.6 % (1.0-4.0); HEMATOCRIT 44.3 % (42.0-52.0); LYMPH # 1.5 10*3/uL (1.3-4.4); LYMPH % 13.9 % (27.0-41.0); MEAN CORPUSCULAR HGB 30.2 pg (27.0-31.0); MEAN CORPUSCULAR HGB CONC 33.2 g/dl (33.0-37.0); MEAN PLATELET VOLUME 10.4 fl (9.6-12.3); MONO # 0.4 10*3/uL (0.1-1.0); MONO % 3.7 % (3.0-9.0); NEUT # 8.6 10*3/uL (2.3-7.9); NEUT % 80.7 % (47.0-73.0); PLATELET COUNT AUTOMATED 279 10*3/uL (130-400); RED BLOOD COUNT 4.87 10*6/uL (4.50-5.90); RED CELL DISTRI WIDTH 12.6 % (0-14.5); WHITE BLOOD COUNT 10.7 10*3/uL (4.8-10.8)
[2019-08-05 11:35] LABS: ACT PARTIAL THROMBO TIME 25.6 SECONDS (20.0-32.1); INTERNATIONAL NORM RATIO 0.9 (2.0-3.5)
[2019-08-05 11:45] LABS: ALKALINE PHOSPHATASE 99 U/L (45-117); BUN 16 mg/dl (7-24); CHLORIDE 105 mmol/L (98-107); CREATININE 1.04 mg/dL (0.70-1.30); LIPASE 74 U/L (73-393); POTASSIUM 3.5 mmol/L (3.5-5.1); SGOT/AST 13 IU/L (3-35); SGPT/ALT 28 U/L (12-78); SODIUM 137 mmol/L (136-145); TOTAL PROTEIN 7.5 gm/dL (6.4-8.2)
[2019-08-05 11:49] LABS: TROPONIN I < 0.015 ng/ml (<0.045)
[2019-08-05 13:21] LABS: BILIRUBIN NEGATIVE (NEGATIVE); CLARITY SL CLOUDY (CLEAR); COLOR YELLOW (YELLOW); GLUCOSE 3+ (NEGATIVE); KETONE 2+ (NEGATIVE)
[2019-08-05 13:22] LABS: BLOOD NEGATIVE (NEGATIVE); LEUKO ESTERASE NEGATIVE (NEGATIVE); NITRITE NEGATIVE (NEGATIVE); PH 8.5 (5.0-9.0); UROBILINOGEN 0.2 E.U./dl (0.2-1.0)
[2019-08-05 13:29] LABS: BACTERIA 2+
[2019-08-05 14:39] VITALS: BP 127/70
[2019-08-05 17:30] VITALS: BP 139/59
[2019-08-05 20:00] VITALS: BP 134/81
[2019-08-05 21:02] LABS: URINE AMPHETAMINES < 1000 (1000ng/ml); URINE BARBITURATES < 200 (200ng/ml); URINE BENZODIAZEPINES < 200 (200ng/ml); URINE CANNABINOIDS (THC) > 50 (50ng/ml); URINE COCAINE < 300 (300ng/ml); URINE METHADONE < 300 (300ng/ml); URINE OPIATES < 300 (300ng/ml)
[2019-08-05 21:08] LABS: URINE PHENCYCLIDINE < 25 (25ng/ml)
[2019-08-06] VITALS: BP 98/51
[2019-08-06 06:42] LABS: BASO # 0.1 10*3/uL (0.0-0.1); BASO % 0.5 % (0.0-1.0); LYMPH # 1.9 10*3/uL (1.3-4.4); LYMPH % 11.5 % (27.0-41.0); MEAN CELL VOLUME 90.7 fl (80.0-94.0); MEAN CORPUSCULAR HGB 30.5 pg (27.0-31.0); MEAN CORPUSCULAR HGB CONC 33.7 g/dl (33.0-37.0); MEAN PLATELET VOLUME 10.4 fl (9.6-12.3); MONO # 1.2 10*3/uL (0.1-1.0); MONO % 7.1 % (3.0-9.0); NEUT % 80.5 % (47.0-73.0); PLATELET COUNT AUTOMATED 278 10*3/uL (130-400); RED BLOOD COUNT 4.52 10*6/uL (4.50-5.90); RED CELL DISTRI WIDTH 13.1 % (0-14.5); WHITE BLOOD COUNT 16.2 10*3/uL (4.8-10.8)
[2019-08-06 06:54] LABS: ACT PARTIAL THROMBO TIME 23.6 SECONDS (20.0-32.1)
[2019-08-06 06:58] LABS: BUN 24 mg/dl (7-24); CHLORIDE 104 mmol/L (98-107); CHOLESTEROL 141 mg/dL (<200); CREATININE 1.17 mg/dL (0.70-1.30); FREE T4 1.33 ng/dl (0.76-1.46); HDL CHOLESTEROL 65 mg/dl (40-60); LDL CHOLESTEROL 64 mg/dL (9-159); TRIGLYCERIDES 58 mg/dl (<150); VLDL CHOLESTEROL 12 mg/dL (6-40)
[2019-08-06 07:09] LABS: SODIUM 136 mmol/L (136-145)
[2019-08-06 07:14] LABS: POTASSIUM 4.9 mmol/L (3.5-5.1)
[2019-08-06 08:00] VITALS: BP 118/63; BP 122/76
[2019-08-06 12:00] VITALS: BP 130/67
[2019-08-06] MEDS ORDERED: ZOFRAN4 MG PO (14:33)
[2019-08-07] MEDS ORDERED: ZOFRAN4 MG PO (16:17)
[2019-08-07] MEDS ORDERED: FLONASE ALLERG9.9 ML NAS (16:24)
== END 2019-08-06 17:39 | disposition home or self-care (01) | DRG 394 ==
LOC: ED 10:19 → EDHOLD 15:44 → 4E 15:44 → EDHOLD 16:18 → 4E 16:39
PROVIDERS: Emergency Medicine; Internal Medicine; ADMIT Internal Medicine
DX: R11.15 Cyclical vomiting syndrome unrelated to migraine (principal); E87.2 Acidosis; K29.70 Gastritis, unspecified, without bleeding; K25.9 Gastric ulcer, unspecified as acute or chronic, without hemorrhage or perforation; E10.65 Type 1 diabetes mellitus with hyperglycemia; K58.9 Irritable bowel syndrome, unspecified; F41.1 Generalized anxiety disorder; J45.909 Unspecified asthma, uncomplicated; N20.0 Calculus of kidney; F32.9 Major depressive disorder, single episode, unspecified; K21.9 Gastro-esophageal reflux disease without esophagitis; E10.43 Type 1 diabetes mellitus with diabetic autonomic (poly)neuropathy; D64.9 Anemia, unspecified; F12.188 Cannabis abuse with other cannabis-induced disorder; F17.210 Nicotine dependence, cigarettes, uncomplicated; Z88.8 Allergy status to other drugs, medicaments and biological substances; Z71.6 Tobacco abuse counseling; Z79.4 Long term (current) use of insulin; Z79.899 Other long term (current) drug therapy; Z82.49 Family history of ischemic heart disease and other diseases of the circulatory system; Z83.6 Family history of other diseases of the respiratory system; Z81.8 Family history of other mental and behavioral disorders; Z90.49 Acquired absence of other specified parts of digestive tract

== ENCOUNTER 2019-08-07 14:16 | Emergency (ER) | payer OTHER ==
[~2019-08-07] VITALS: Ht 185.4 cm; Wt 77.1 kg
[2019-08-07 15:15] LABS: BASO # 0.1 10*3/uL (0.0-0.1); BASO % 0.8 % (0.0-1.0); EOS # 0.2 10*3/uL (0.0-0.4); EOS % 1.9 % (1.0-4.0); HEMATOCRIT 39.1 % (42.0-52.0); LYMPH # 2.2 10*3/uL (1.3-4.4); LYMPH % 25.3 % (27.0-41.0); MEAN CELL VOLUME 89.1 fl (80.0-94.0); MEAN CORPUSCULAR HGB 30.5 pg (27.0-31.0); MEAN CORPUSCULAR HGB CONC 34.3 g/dl (33.0-37.0); MEAN PLATELET VOLUME 10.1 fl (9.6-12.3); MONO # 0.5 10*3/uL (0.1-1.0); MONO % 5.7 % (3.0-9.0); NEUT # 5.8 10*3/uL (2.3-7.9); NEUT % 66.1 % (47.0-73.0); PLATELET COUNT AUTOMATED 266 10*3/uL (130-400); RED BLOOD COUNT 4.39 10*6/uL (4.50-5.90); RED CELL DISTRI WIDTH 12.5 % (0-14.5); WHITE BLOOD COUNT 8.7 10*3/uL (4.8-10.8)
[2019-08-07 15:31] LABS: ALBUMIN 3.4 gm/dl (3.1-4.5); ALKALINE PHOSPHATASE 87 U/L (45-117); BUN 15 mg/dl (7-24); CHLORIDE 105 mmol/L (98-107); CREATININE 1.02 mg/dL (0.70-1.30); LIPASE 63 U/L (73-393); SGOT/AST 17 IU/L (3-35); SGPT/ALT 26 U/L (12-78); TOTAL PROTEIN 6.3 gm/dL (6.4-8.2)
[2019-08-07 15:36] LABS: POTASSIUM 3.4 mmol/L (3.5-5.1); SODIUM 138 mmol/L (136-145)
[2019-08-07] MEDS ORDERED: ZOFRAN4 MG PO (16:17)
[2019-08-07] MEDS ORDERED: FLONASE ALLERG9.9 ML NAS (16:24)
== END 2019-08-07 17:04 | disposition home or self-care (01) ==
LOC: ED 14:16
PROVIDERS: Physician Assistant
DX: R11.15 Cyclical vomiting syndrome unrelated to migraine (principal); J30.9 Allergic rhinitis, unspecified; R11.2 Nausea with vomiting, unspecified; F41.9 Anxiety disorder, unspecified; K21.9 Gastro-esophageal reflux disease without esophagitis; E10.9 Type 1 diabetes mellitus without complications; H57.89 Other specified disorders of eye and adnexa; R09.82 Postnasal drip; Z88.8 Allergy status to other drugs, medicaments and biological substances; Z79.899 Other long term (current) drug therapy; Z79.4 Long term (current) use of insulin; Z90.49 Acquired absence of other specified parts of digestive tract; Z87.442 Personal history of urinary calculi; Z87.891 Personal history of nicotine dependence

== ENCOUNTER 2019-09-02 11:38 | Inpatient (IN) | payer OTHER ==
[~2019-09-02] VITALS: Ht 185.4 cm; Wt 83.9 kg
[~2019-09-02 11:38] MED LIST changes: +FLONASE ALLERG9.9 ML NAS
[2019-09-02 11:45] VITALS: BP 140/83
[2019-09-02 12:18] LABS: BASO # 0.2 10*3/uL (0.0-0.1); EOS # 0.1 10*3/uL (0.0-0.4); EOS % 0.4 % (1.0-4.0); HEMATOCRIT 43.1 % (42.0-52.0); LYMPH # 1.6 10*3/uL (1.3-4.4); LYMPH % 10.2 % (27.0-41.0); MEAN CORPUSCULAR HGB 30.4 pg (27.0-31.0); MEAN CORPUSCULAR HGB CONC 34.1 g/dl (33.0-37.0); MEAN PLATELET VOLUME 10.4 fl (9.6-12.3); MONO # 0.5 10*3/uL (0.1-1.0); MONO % 3.2 % (3.0-9.0); NEUT # 13.5 10*3/uL (2.3-7.9); NEUT % 84.9 % (47.0-73.0); PLATELET COUNT AUTOMATED 299 10*3/uL (130-400); RED BLOOD COUNT 4.84 10*6/uL (4.50-5.90); RED CELL DISTRI WIDTH 12.6 % (0-14.5); WHITE BLOOD COUNT 15.9 10*3/uL (4.8-10.8)
[2019-09-02 12:31] LABS: ALBUMIN 3.9 gm/dl (3.1-4.5); ALKALINE PHOSPHATASE 92 U/L (45-117); BUN 19 mg/dl (7-24); CHLORIDE 100 mmol/L (98-107); CREATININE 1.12 mg/dL (0.70-1.30); LIPASE 86 U/L (73-393); POTASSIUM 4.2 mmol/L (3.5-5.1); SGOT/AST 16 IU/L (3-35); SGPT/ALT 26 U/L (12-78); SODIUM 137 mmol/L (136-145); TOTAL PROTEIN 7.2 gm/dL (6.4-8.2)
[2019-09-02 14:00] VITALS: BP 128/86; BP 128/96
[2019-09-02 15:21] LABS: COLOR YELLOW (YELLOW)
[2019-09-02 15:22] LABS: BILIRUBIN NEGATIVE (NEGATIVE); BLOOD TRACE-INTACT (NEGATIVE); CLARITY CLEAR (CLEAR); GLUCOSE 3+ (NEGATIVE); KETONE 3+ (NEGATIVE); LEUKO ESTERASE NEGATIVE (NEGATIVE); NITRITE NEGATIVE (NEGATIVE); SPECIFIC GRAVITY 1.005 (1.005-1.030); UROBILINOGEN 0.2 E.U./dl (0.2-1.0)
[2019-09-02 15:23] LABS: RBC 0-2 rbc/hpf (0-2)
[2019-09-02 16:00] VITALS: BP 117/66
[2019-09-02 16:11] LABS: URINE AMPHETAMINES < 1000 (1000ng/ml); URINE BARBITURATES < 200 (200ng/ml); URINE BENZODIAZEPINES < 200 (200ng/ml); URINE CANNABINOIDS (THC) > 50 (50ng/ml); URINE COCAINE < 300 (300ng/ml); URINE METHADONE < 300 (300ng/ml); URINE OPIATES < 300 (300ng/ml)
[2019-09-02 16:17] LABS: URINE PHENCYCLIDINE < 25 (25ng/ml)
[2019-09-03] VITALS: BP 117/60
[2019-09-03 08:00] VITALS: BP 116/60
[2019-09-03 08:49] LABS: HEMATOCRIT 40.5 % (42.0-52.0); MEAN CORPUSCULAR HGB 29.9 pg (27.0-31.0); MEAN CORPUSCULAR HGB CONC 33.6 g/dl (33.0-37.0); MEAN PLATELET VOLUME 10.1 fl (9.6-12.3); PLATELET COUNT AUTOMATED 269 10*3/uL (130-400); RED BLOOD COUNT 4.55 10*6/uL (4.50-5.90); RED CELL DISTRI WIDTH 13.2 % (0-14.5)
[2019-09-03 09:04] LABS: PLATELET SUFFICIENCY NORMAL (NORMAL); TOTAL CELLS COUNTED 100 #CELLS
[2019-09-03 09:11] LABS: ALBUMIN 3.6 gm/dl (3.1-4.5); ALKALINE PHOSPHATASE 85 U/L (45-117); BUN 19 mg/dl (7-24); CHLORIDE 108 mmol/L (98-107); POTASSIUM 3.9 mmol/L (3.5-5.1); SGOT/AST 11 IU/L (3-35); SGPT/ALT 21 U/L (12-78); SODIUM 139 mmol/L (136-145); TOTAL PROTEIN 6.7 gm/dL (6.4-8.2)
[2019-09-03 12:00] VITALS: BP 124/65
[2019-09-03 16:00] VITALS: BP 132/54
[2019-09-03 20:00] VITALS: BP 126/90
[2019-09-04] VITALS: BP 122/75
[2019-09-04 08:00] VITALS: BP 122/88
[2019-09-04 12:00] VITALS: BP 129/66
[2019-09-04] MEDS ORDERED: ZOFRAN4 MG PO (14:24)
== END 2019-09-04 15:00 | disposition home or self-care (01) | DRG 392 ==
LOC: ED 11:38 → 5E 14:43 → EDHOLD 14:43 → 5E 14:59
PROVIDERS: Emergency Medicine; Registered Nurse; ADMIT Family Medicine
DX: R11.2 Nausea with vomiting, unspecified (principal); R65.10 Systemic inflammatory response syndrome (SIRS) of non-infectious origin without acute organ dysfunction; E87.2 Acidosis; E10.42 Type 1 diabetes mellitus with diabetic polyneuropathy; E10.65 Type 1 diabetes mellitus with hyperglycemia; F41.1 Generalized anxiety disorder; K21.9 Gastro-esophageal reflux disease without esophagitis; E87.8 Other disorders of electrolyte and fluid balance, not elsewhere classified; E83.41 Hypermagnesemia; J45.909 Unspecified asthma, uncomplicated; F12.10 Cannabis abuse, uncomplicated; F32.9 Major depressive disorder, single episode, unspecified; F17.210 Nicotine dependence, cigarettes, uncomplicated; Z90.49 Acquired absence of other specified parts of digestive tract; Z82.49 Family history of ischemic heart disease and other diseases of the circulatory system; Z81.8 Family history of other mental and behavioral disorders; Z88.8 Allergy status to other drugs, medicaments and biological substances; Z79.899 Other long term (current) drug therapy; Z79.4 Long term (current) use of insulin

== ENCOUNTER 2019-09-18 23:20 | Emergency (ER) | payer OTHER ==
[~2019-09-18] VITALS: Ht 185.4 cm; Wt 81.6 kg
[2019-09-19] MEDS ORDERED: PENICILLIN-VK500 M1 PO (01:22)
[2019-09-19] MEDS ORDERED: NORCO 5-325 TA1 EACH PO (01:22)
== END 2019-09-19 02:24 | disposition home or self-care (01) ==
LOC: ED 23:20
DX: K08.89 Other specified disorders of teeth and supporting structures (principal); J45.909 Unspecified asthma, uncomplicated; F32.9 Major depressive disorder, single episode, unspecified; K21.9 Gastro-esophageal reflux disease without esophagitis; F41.9 Anxiety disorder, unspecified; E11.9 Type 2 diabetes mellitus without complications; Z79.899 Other long term (current) drug therapy; Z79.4 Long term (current) use of insulin; Z90.49 Acquired absence of other specified parts of digestive tract

== ENCOUNTER 2019-09-26 21:11 | Inpatient (IN) | payer OTHER ==
[~2019-09-26] VITALS: Ht 185.4 cm; Wt 76.4 kg
[~2019-09-26 21:11] MED LIST changes: +PENICILLIN-VK500 M1 PO
[2019-09-26 21:20] VITALS: BP 152/89
--- NOTE | 2019-09-26 21:41 | NUR ---
YASMINE MAY GIVEN BY OSBALDO CABRERA.
[2019-09-26 21:54] LABS: BASO # 0.1 10*3/uL (0.0-0.1); BASO % 1.1 % (0.0-1.0); EOS % 0.1 % (1.0-4.0); HEMATOCRIT 43.3 % (42.0-52.0); LYMPH # 1.3 10*3/uL (1.3-4.4); LYMPH % 11.7 % (27.0-41.0); MEAN CELL VOLUME 88.4 fl (80.0-94.0); MEAN CORPUSCULAR HGB 29.8 pg (27.0-31.0); MEAN CORPUSCULAR HGB CONC 33.7 g/dl (33.0-37.0); MEAN PLATELET VOLUME 10.5 fl (9.6-12.3); MONO # 0.3 10*3/uL (0.1-1.0); MONO % 2.6 % (3.0-9.0); NEUT # 9.1 10*3/uL (2.3-7.9); NEUT % 84.2 % (47.0-73.0); PLATELET COUNT AUTOMATED 312 10*3/uL (130-400); RED CELL DISTRI WIDTH 12.5 % (0-14.5); WHITE BLOOD COUNT 10.8 10*3/uL (4.8-10.8)
[2019-09-26 22:14] LABS: ALBUMIN 4.1 gm/dl (3.1-4.5); ALKALINE PHOSPHATASE 104 U/L (45-117); BUN 18 mg/dl (7-24); CHLORIDE 103 mmol/L (98-107); CREATININE 1.01 mg/dL (0.70-1.30); LIPASE 54 U/L (73-393); POTASSIUM 4.2 mmol/L (3.5-5.1); SGOT/AST 22 IU/L (3-35); SGPT/ALT 25 U/L (12-78); SODIUM 135 mmol/L (136-145); TOTAL PROTEIN 7.7 gm/dL (6.4-8.2)
--- NOTE | 2019-09-26 23:02 | NUR ---
PATIENT STATES HE STILL IS UNABLE TO USE THE BATHROOM AT THIS TIME.
--- NOTE | 2019-09-26 23:24 | NUR ---
PT AWARE OF NEED FOR URINE SAMPLE. UNABLE TO PROVIDE AT THIS TIME.
--- NOTE | 2019-09-26 23:27 | NUR ---
PT RESTING IN BED WITH EYES CLOSED. CALL LIGHT WITHIN REACH.
[2019-09-27 00:23] VITALS: BP 146/78
--- NOTE | 2019-09-27 00:23 | NUR ---
REPORT CALLED TO LAZARA CABRERA ON 5E.
[2019-09-27 00:35] VITALS: BP 121/64
--- NOTE | 2019-09-27 00:35 | NUR ---
A 23, admitted to 5E, under the services of ROBERTA Matias DO with a diagnosis of HYPERGLYCEMIA, INTRACTABLE NAUSEA/VOMITING. Chief complaint is ABD PAIN. Patient arrived via stretcher from ER. Monitor applied. Initial assessment completed. Vital signs taken and recorded. ROBERTA MATIAS DO notified of admission to the unit. Orders received. See assessment for past medical history, medications and allergies. Patient and/or family oriented to unit. visitation policy reviewed. Clothing/patient valuable form completed. SHIVAM MARTÍNEZ
--- NOTE | 2019-09-27 00:53 | NUR ---
MEDICATED WITH PHENERGAN PER PRN ORDER FOR NAUSEA/VOMITING.
--- NOTE | 2019-09-27 02:55 | NUR ---
MEDICATED WITH ZOFRAN PER PRN ORDER FOR C/O NAUSEA/VOMITIMG.
[2019-09-27 06:09] LABS: BASO % 0.4 % (0.0-1.0); HEMATOCRIT 40.2 % (42.0-52.0); LYMPH # 0.9 10*3/uL (1.3-4.4); LYMPH % 9.7 % (27.0-41.0); MEAN CELL VOLUME 90.1 fl (80.0-94.0); MEAN CORPUSCULAR HGB 29.8 pg (27.0-31.0); MEAN CORPUSCULAR HGB CONC 33.1 g/dl (33.0-37.0); MEAN PLATELET VOLUME 10.9 fl (9.6-12.3); MONO # 0.2 10*3/uL (0.1-1.0); MONO % 2.6 % (3.0-9.0); NEUT # 8.1 10*3/uL (2.3-7.9); NEUT % 86.9 % (47.0-73.0); PLATELET COUNT AUTOMATED 309 10*3/uL (130-400); RED BLOOD COUNT 4.46 10*6/uL (4.50-5.90); RED CELL DISTRI WIDTH 13.1 % (0-14.5); WHITE BLOOD COUNT 9.3 10*3/uL (4.8-10.8)
[2019-09-27 06:33] LABS: BUN 17 mg/dl (7-24); CHLORIDE 103 mmol/L (98-107); POTASSIUM 4.3 mmol/L (3.5-5.1); SODIUM 138 mmol/L (136-145)
--- NOTE | 2019-09-27 07:00 | NUR ---
ARRIVED ON SHIFT, RECEIVED REPORT FROM OFFGOING NURSE, ASSUMED CARE OF PATIENT.
--- NOTE | 2019-09-27 07:44 | NUR ---
Shift chart check completed.
[2019-09-27 08:00] VITALS: BP 132/68
[2019-09-27 08:44] LABS: BILIRUBIN NEGATIVE (NEGATIVE); BLOOD NEGATIVE (NEGATIVE); CLARITY CLEAR (CLEAR); COLOR YELLOW (YELLOW); GLUCOSE 3+ (NEGATIVE); KETONE 3+ (NEGATIVE); LEUKO ESTERASE NEGATIVE (NEGATIVE); NITRITE NEGATIVE (NEGATIVE); SPECIFIC GRAVITY 1.025 (1.005-1.030); UROBILINOGEN 0.2 E.U./dl (0.2-1.0)
[2019-09-27 08:49] LABS: BACTERIA TRACE; MUCOUS TRACE; WBC 0-2 wbc/hpf (0-5)
[2019-09-27 08:53] LABS: URINE AMPHETAMINES < 1000 (1000ng/ml); URINE BARBITURATES < 200 (200ng/ml); URINE BENZODIAZEPINES < 200 (200ng/ml); URINE CANNABINOIDS (THC) > 50 (50ng/ml); URINE COCAINE < 300 (300ng/ml); URINE METHADONE < 300 (300ng/ml); URINE OPIATES > 300 (300ng/ml)
[2019-09-27 08:54] LABS: URINE PHENCYCLIDINE < 25 (25ng/ml)
--- NOTE | 2019-09-27 09:10 | NUR ---
INTRODUCED SELF TO PATIENT, BED IN LOW POSITION, WHEEL LOCKS ENGAGED SIDE RAILS UP X 2, FOR TURNING AND POSITIONING, CALL LIGHT WITHIN REACH, NO NEEDS VOICED AT THIS TIME, WHITE BOARD UPDATED.
--- NOTE | 2019-09-27 11:05 | NUR ---
PATIENT C/O NAUSEA MEDICATED WITH ZOFRAN ORDERED.
[2019-09-27 12:00] VITALS: BP 134/70
--- NOTE | 2019-09-27 12:00 | NUR ---
CALL PLACED TO DR. EASON ADVISED OF CONSULT, HE VERSED HE WILL SEE PATIENT TOMORROW.
--- NOTE | 2019-09-27 12:05 | NUR ---
AIMEE INEFFECTIVE, PATIENT CONTINUES TO BE NAUSEATED, HAD NATHAN BROWN EMESIS, PATIENTS MOTHER AT BED SIDE, ADVISED THAT NEW MEDICATIONS ARE ORDERED AND I WILL BE GIVING SHORTLY.
--- NOTE | 2019-09-27 15:15 | NUR ---
PATIENT MOTHER CAME TO STATING THAT PATIENT WAS ON CARAFATE AT HOME, REVIEWED MEDICATION HISTORY, LAST FILL WAS IN JULY FOR 12 TABLETS (3D DAYS SUPPLY) SHE VERSED HE WAS TAKING THIS MEDICATION AND IT WAS HELPFUL WITH HIS STOMACH ISSUES. CALL,PLACED TO DR. VILLA, REPORTED WHAT I WAS TOLD BY PATIENTS MOTHER, AND REVIEWED PHARMACY FILL DATES, ORDER RECEIVED FOR CARAFATE 1 GM AC AND HS, WHICH WILL START AT 1630 TODAY. UPDATE GIVEN TO PATIENT AND HIS MOTHER.
--- NOTE | 2019-09-27 15:20 | NUR ---
PATIENTS MOM CAME OUT TO DESK, UPSET STATING PATIENTS BS WAS 408, PATIENT HAD CHECKED SUGAR WITH HIS HOME MACHINE, REQUESTED THAT IF HE FEELS IS SUGAR IS ELEVATED TO LET NURSE KNOW, AND WE COULD CHECK IT, CHECKED BS WITH OUT GLUCOMETER, READING WAS 438, RECHECKED AND BS SUGAR WAS 43O, CALL PLACED TO DR. VILLA TO ADVISE, HE ADVISED TO USE 1630 SUGAR COVER WITH 22 UNITS PER SLIDING SCALE, AND RECHECK BS AT 1730.
[2019-09-27] MEDS ORDERED: TRESIBA FL100 UNIT/1 SQ (15:39)
--- NOTE | 2019-09-27 15:50 | NUR ---
SPOKE WITH PATIENT, HE REPORTS FEELING ANXIOUS AND DEPRESSED, ASKED PATIENT WHAT HE HAS DONE IN THE PAST FOR THIS, HIS MOM STATED, THATS WHY HE SMOKES MARIJAUNA, ADVISED THAT MAY BE CONTRIBUTING TO HIS CYCLIC VOMITING, VERSED UNDERSTANDING. SPOKE WITH DR. VILLA REGARDING POSSIBLE PHYSCH EVAL DUE TO PATIENTS C/O ONGOING FEELINGS OF DEPRESSION AND FEELINGS OF BEING OVERWHELMED WITH WHAT IS GOING ON WITH HIM. DR VILLA GAVE ORDER FOR [facility] EVALUATIUON IF OK WITH PATIENT AND FAMILY. SPOKE TO PATIENT AND HIS MOTHER PATIENT IS AGREEABLE.
[2019-09-27 16:00] VITALS: BP 128/68
--- NOTE | 2019-09-27 16:19 | NUR ---
CALL PLACED TO [facility] SPOKE TO MARANDA ADVISED OF CONSULT FOR DEPRESSION ADVISED SHE WILL PUT IT ON THE BOARD.
--- NOTE | 2019-09-27 17:35 | NUR ---
CALL PLACED TO DR. VILLA ADVISED OF BLOOD SUGAR OF 234, HE VERSED NO COVERAGE AT THIS TIME. PATIENT AND MOTHER ADVISED.
--- NOTE | 2019-09-27 17:45 | NUR ---
WENT IN PATIENTS ROOM TO GIVE DINNER TRAY TO PATIENT HE WAS RESTING WITH EYES CLOSED, LYING IN POSITION, HE STATES HE FEELS A LITTLE BETTER. AWAKENED PATIENT TO EAT HE STATED HE WOULD.
[2019-09-27 20:00] VITALS: BP 128/70
--- NOTE | 2019-09-27 20:00 | NUR ---
PT RESTING IN BED AWAKE, A&O. RESP NONLABORED. NO ACUTE DISTRESS NOTED. NO COMPLAINTS VOICED AT THIS TIME. IV PATENT AND IVF'S INFUSING ORDERED WITHOUT DIFFICULTY. NO S/S OF HYPO/HYPERGLYCEMIA NOTED.
--- NOTE | 2019-09-27 23:00 | NUR ---
ASSUMED CARE FOR THIS PT AT THIS TIME. PT RESTING QUEITLY IN BED. BS HYPO X4. NO C/O N/V/D. CALL LIGHT IN REACH.
[2019-09-28] VITALS: BP 103/60
--- NOTE | 2019-09-28 01:56 | NUR ---
PT MEDICATED W/TYLENOL FOR C/O RT SIDE MOUTH PAIN. ICE PACK GIVEN TO PT TO APPLY TO AREA WELL. NOT SWELLING OR CHIPPED TEETH NOTED.
--- NOTE | 2019-09-28 06:09 | NUR ---
ADMINISTERED INSULIN PER PT REQUEST. PT IS WORRIED HE IS GOING INTO DKA. PT ADVISED STAFF IS MONITORING HIS BLOOD SUGARS AND WILL NOTIFY DAY TEAM.
[2019-09-28 08:00] VITALS: BP 130/83
--- NOTE | 2019-09-28 08:30 | NUR ---
PT REQUESTED TO HAVE HIS BLOOD GLUCOSE CHECKED AT THIS TIME. PT VERY ANXIOUS ABOUT HIS BLOOD GLUCOSE STATING HE CHECKS IT EVERY 3-4 HOURS AT HOME. BSG 229 AT THIS TIME. PT CHILD LIKE IN HIS DEMEANOR WHINING AND TALKING IN A CHILD LIKE VOICE CURLED UP WITH BLANKET OVER HIS HEAD. C/O NAUSEA AND I EXPLAINED IT IS TO EARLY FOR HIS ZOFRAN BUT I DID GIVE HIM HIS AM DOSE OF BENTYL.
--- NOTE | 2019-09-28 09:15 | NUR ---
PT CONTINUES TO C/O SEVERE NAUSEA AND VOMITING IN THE EMESIS BASIN. DR Francisca FERNANDEZ NOTIFIED.
--- NOTE | 2019-09-28 10:04 | NUR ---
DR Francisca FERNANDEZ NOTIFIED AT THIS TIME THAT PT CONTINUES TO C/O NAUSEA AND VOMITING GREEN BILE X2.
--- NOTE | 2019-09-28 10:12 | NUR ---
DR EASON NOTIFIED OF PT'S CONTINUED NAUSEA AND VOMITING. ORDER FOR EXTRA DOSE OF ZOFRAN NOW.
--- NOTE | 2019-09-28 10:34 | NUR ---
[facility] NURSE PRACTITIONER IN TO SEE PT.
--- NOTE | 2019-09-28 10:40 | NUR ---
TERESITA SCHULZ IN TO SPEAK WITH PT.
--- NOTE | 2019-09-28 11:00 | NUR ---
PT YELLING THAT HIS STOMACH HURTS. ROUTINE TORADOL AND ZOFRAN GIVEN AT THIS TIME. I SPOKE WITH DR Francisca FERNANDEZ AGAIN AT THIS TIME TO SEE IF SOMEONE COULD COME SEE THE PT FRANDY.
[2019-09-28 12:00] VITALS: BP 124/82
--- NOTE | 2019-09-28 12:42 | NUR ---
Metal Riveting Machine Operator in to talk to patient. Patient states lives at HOME with MOTHER. There are NO steps in the home. Physician: NONE AT THIS TIME Pharmacy: [facility] Home health services: NONE Patient's level of ADLs: INDEPENDENT Patient has working utilities: YES DME: NONE Follow-up physician's appointment after d/c: WILL BE MADE BY HOSPITALIST NURSE DIRECTOR ON DISCHARGE Does patient want to access PORTAL?: NO Discharge plan PT LIVES AT HOME WITH HIS MOTHER AND IS INDEPENDENT IN HIS CARE. DENIES HE WILL HAVE ANY NEEDS ON DISCHARGE. WILL RETURN HOME WITH MOTHER WHEN MEDICALLY STABLE. WILL CONTINUE TO FOLLOW.. STATES HE WILL HAVE A RIDE HOME.. KILO VAUGHN
--- NOTE | 2019-09-28 14:44 | NUR ---
PT IS YELLING THAT HIS STOMACH HURTS AGAIN AND THAT HE IS SCARED SOMETHING IS REALLY WRONG AND WANTS THE DR CALLED. I CALLED AND SPOKE WITH DR Francisca FERNANDEZ AND MADE HIM AWARE OF PT'S REQUEST.
--- NOTE | 2019-09-28 14:57 | NUR ---
PT MEDICATED WITH DILAUDID 0.5MG IV PER DR ORDERS.
[2019-09-28 16:00] VITALS: BP 127/83
--- NOTE | 2019-09-28 16:19 | NUR ---
MEDICATED WITH PRN IV ZOFRAN FOR NAUSEA.
--- NOTE | 2019-09-28 17:00 | NUR ---
PRN IV ZOFRAN NOT EFFECTIVE FOR NAUSEA, STATES HE THINKS HE NEEDS TO THROW UP.
--- NOTE | 2019-09-28 17:05 | NUR ---
MEDICATED WITH PRN IV DILAUDID 0.5MG X 1 FOR SEVERE ABDOMINAL PAIN.
--- NOTE | 2019-09-28 17:28 | NUR ---
DILAUDID EFFECTIVE FOR ABDOMINAL PAIN, PER PATIENT.
[2019-09-28 20:00] VITALS: BP 126/81
--- NOTE | 2019-09-28 20:18 | NUR ---
PATIENT SCREAMING, ACTING CHILD LIKE, WHINING. STATES HE IS IN 10/10 PAIN. REQUESTING TO BE MEDICATED WITH THE STUFF HE WAS MEDICATED WITH EARLIER, DILAUDID. THIS NURSE NOTIFIED PATIENT THAT THE DILAUDID GIVEN EARLIER WAS ONLY A ONE TIME DOSE AND IS NO LONGER ORDERED FOR ME TO GIVE. PATIENT MEDICATED AT THIS TIME WITH SCHEDULED IV TYLENOL AND GIVEN PRN ZOFRAN. PATIENT STATES THE ONLY THING THAT HELPS IS THE DILAUDID. THIS NURSE STATED I WOULD NOTIFY THE DOCTOR. NOTIFIED DR. MENSAH OF PATIENT REQUEST. TORADOL ORDERED.
[2019-09-29] VITALS: BP 129/81
--- NOTE | 2019-09-29 00:02 | NUR ---
PT CRYING LOUDLY AND SCREAMING. THIS NURSE AND ANOTHER NURSE ENTERED THE PATIENTS ROOM TO CHECK ON HIM. PT SITTING ON SIDE OF BED SAYING HE IS GOING OUT OF HIS MIND AND DOESN'T KNOW WHY HE FEELS THIS WAY. VS TAKEN AND PT REMINDED THAT HE CAN NOT BE YELLING OUT HE IS DISTURBING THE OTHER PATIENTS ON THIS FLOOR. DR. MENSAH CALLED AND ASKED TO COME AND SPEAK WITH PT. TO COME TO THE FLOOR.
--- NOTE | 2019-09-29 00:05 | NUR ---
DR. MENSAH AND THIS NURSE IN PATIENTS ROOM. PATIENT STATES HE FEELS LIKE HE IS CRAWLING OUT OF HIS SKIN FROM THE NEW MEDICATIONS HE TOOK. STILL CRYING/SCREAMING. DENIES SUCUIDAL IDEATIONS.
--- NOTE | 2019-09-29 01:05 | NUR ---
PATIENT ON ALL FOURS ON THE FLOOR DRY HEAVING INTO THE TRASH CAN. SCREAMING/CRYING. MEDICATED WITH ZOFRAN AT THIS TIME. WILL CHECK EFFECTIVENESS. WILL CHECK EFFECTIVENESS.
--- NOTE | 2019-09-29 01:40 | NUR ---
PT IN BATHROOM AND DRY HEAVING AND CRYING LOUDLY. PT HAD TURNED IV PUMP OFF. PUMP REPROGRAMMED AND LOCKED. PT ADVISED THAT HE IS DRY HEAVING D/T HIS NERVES AND NOTHING PHYSICAL. DR. MENSAH ON FLOOR AND ORDERING MEDICATION FOR PT.
--- NOTE | 2019-09-29 01:45 | NUR ---
PATIENT RIPPED IV OUT. SITE BLOODY. NEW IV STARTED IN LEFT FOREARM. PATIENT YELLED AND SCREAMED ENTIRE TIME.
--- NOTE | 2019-09-29 02:27 | NUR ---
PATIENT CONTINUES TO SCREAM OUT. DEMANDING HE RECEIVES DILAUDID. STATES THE ZOFRAN AND BENADRYL IS NOT EFFECTIVE. THIS NURSE EXPLAINED THAT DILAUDID IS NOT ORDERED. PATIENT BECOMES VERY UPSET AND RAISES HIS VOICE TO STAFF. STATES IT IS THE ONLY THING TO HELP HIS NAUSEA AND VOMITTING AND ABDOMINAL PAIN AND DOESNT UNDERSTAND WHY HE CANT HAVE IT WHEN HE WANTS. DEMANDING DR. MENSAH COME TO THE FLOOR AND STATING HE IS LEAVING AMA. NOTIFIED. DR MENSAH. SECRUITY TO THE FLOOR BC PATIENT IS BECOMING VERY AGITATED AND SCREAMING.
--- NOTE | 2019-09-29 03:17 | NUR ---
WENT INTO MEDICATED PATIENT. PATIENT SLEEPING. PHENERGAN AND ATIVAN HELD AT THIS TIME. DR. MENSAH NOTIFIED.
--- NOTE | 2019-09-29 03:37 | NUR ---
PATIENT NOW AWAKE. DRY HEAVING AND SCREAMING. MEDICATED AT THIS TIME WITH ATIVAN AND PHENERGAN. WILL CHECK EFFECTIVENESS.
--- NOTE | 2019-09-29 04:30 | NUR ---
PATIENT SLEEPING. NO SIGNS OF DISTRESS. RESPIRATIONS EASY, NON LABORED. EARLIER MEDICATIONS GIVEN EFFECTIVE. WILL CONTINUE TO MONITOR.
--- NOTE | 2019-09-29 05:16 | NUR ---
PATIENT NOW AWAKE DRY HEAVING.
--- NOTE | 2019-09-29 06:41 | NUR ---
NOTIFIED OF CRITICAL GLUCOSE, [phone] AND [phone]. SEE NEW ORDERS.
[2019-09-29 07:01] LABS: BASO # 0.1 10*3/uL (0.0-0.1); BASO % 0.6 % (0.0-1.0); HEMATOCRIT 38.6 % (42.0-52.0); LYMPH # 0.8 10*3/uL (1.3-4.4); LYMPH % 7.1 % (27.0-41.0); MEAN CELL VOLUME 89.8 fl (80.0-94.0); MEAN CORPUSCULAR HGB CONC 33.4 g/dl (33.0-37.0); MEAN PLATELET VOLUME 10.5 fl (9.6-12.3); MONO # 0.3 10*3/uL (0.1-1.0); MONO % 2.6 % (3.0-9.0); NEUT # 9.7 10*3/uL (2.3-7.9); NEUT % 89.2 % (47.0-73.0); PLATELET COUNT AUTOMATED 275 10*3/uL (130-400); WHITE BLOOD COUNT 10.9 10*3/uL (4.8-10.8)
[2019-09-29 07:13] LABS: BUN 22 mg/dl (7-24); CHLORIDE 101 mmol/L (98-107); CREATININE 1.08 mg/dL (0.70-1.30); POTASSIUM 4.5 mmol/L (3.5-5.1); SODIUM 134 mmol/L (136-145)
--- NOTE | 2019-09-29 08:00 | NUR ---
0800 AM ASSESSMENT COMPLETE. PT IS ALERT AND ORIENTED. LUGS CLEAR ON RA. PT C/O NAUSEA. MEDICATED WITH ZOFRAN. BED IS IN LOW LOCKED POSITION. CALL LIGHT IN REACH. WILL MONITOR.
--- NOTE | 2019-09-29 08:14 | NUR ---
ZOFRAN GIVEN FOR C/O NAUSEA. WILL MONITOR.
[2019-09-29 09:00] VITALS: BP 134/72
--- NOTE | 2019-09-29 10:16 | NUR ---
10 AM ASSESSMENTS DEFERRED PT. IN X-RAY
[2019-09-29 10:47] VITALS: BP 119/78
--- NOTE | 2019-09-29 10:47 | NUR ---
Recieved pt. from transport / radiology, VS taken and recorded. C/o sharp abdominal pain which is not unusual for him. Routine meds given. Insulin gtt up to infuse. 1115 Incontinent large liquid stool . to BSC , self jayna care and full linen change. Mother in to visit. 1150 to radiology for follow up 1153 Returned to room.
--- NOTE | 2019-09-29 12:09 | NUR ---
Medicated for c/o abdominal discomfort and nausea.
[2019-09-29 14:19] LABS: BUN 19 mg/dl (7-24); CHLORIDE 106 mmol/L (98-107); CREATININE 1.02 mg/dL (0.70-1.30); POTASSIUM 3.7 mmol/L (3.5-5.1); SODIUM 136 mmol/L (136-145)
[2019-09-29 16:00] VITALS: BP 132/82
--- NOTE | 2019-09-29 16:11 | NUR ---
States is still nauseated. Zofran was given. IVF infusing . INsulin gtt. remains at 1unit/h
[2019-09-29 18:08] LABS: BUN 17 mg/dl (7-24); CHLORIDE 107 mmol/L (98-107); CREATININE 0.95 mg/dL (0.70-1.30); POTASSIUM 3.4 mmol/L (3.5-5.1); SODIUM 138 mmol/L (136-145)
--- NOTE | 2019-09-29 18:08 | NUR ---
Weeping states since eating has abdo pain and nausea, states he is afraid to throw up again. t-100 orally and tylenol was given. Reassurance offered. Sitting up on side of bed w/ head lying on a pillow on the over bed table.
--- NOTE | 2019-09-29 18:35 | NUR ---
Mother called in and update was given.
--- NOTE | 2019-09-29 18:35 | NUR ---
K+ supplement given based on 1800 labs.
[2019-09-29 20:00] VITALS: BP 123/82
--- NOTE | 2019-09-29 20:00 | NUR ---
HEP LOCK IN LW AND LA ASYMPT. LUNGS CLEAR BUT DIMINISHED BILAT, PULSE OX 98% ON RA. ABDOMEN SOFT, NONDISTENDED AND NORMO. ANKLE/PEDAL EDEMA NOTED BILAT. RESP. EASY AND REG, NO DISTRESS.
--- NOTE | 2019-09-29 20:20 | NUR ---
1917 - RECEIVED PHONE CALL FROM PATIENTS MOTHER STATING HER SON NEEDS TO EAT NOW AND NEEDS PAIN MEDICATION. 1929 - FINISHED SHIFT CHANGE REPORT, ASSESSED CAROLYN AND INSTRUCTED PATIENT TO CONVEY NEEDS TO NURSE IN THE FUTURE SO THAT ISSUE CAN BE DEALT WITH EFFECTIVELY. DR. MENSAH NOTIFIED OF NEED FOR PAIN MED RATED #9 ON 1-10 PAIN SCALE IN LEFT RIB/STOMACH AREA. PATIENT GIVEN SANDWICH WITH MILK AND APPLESAUSE FROM [employer] DELIVERING NIGHT SNACKS. PATIENT ATE AND DRANK ABOVE THEN COMPLAINED OF NAUSEA FROM PAIN MEDICATION ALTHOUGH DOES STATE EFFECTIVENESS FOR PAIN RELIEF. ZOFRAN GIVEN PRIOR TO SHIFT. TED CHAPIN, RN
--- NOTE | 2019-09-29 21:54 | NUR ---
PT. GIVEN RESTORIL AND ZOFRAN ORDERED AT 2145 FOR INSOMNIA AND NAUSEA.
--- NOTE | 2019-09-29 21:58 | NUR ---
PT. REFUSING REMERON, STATES IT MADE HIM CRAZY LAST NIGHT AND PILL WAS WASTED IN SHARPS CONTAINER. PT. TEARY, STATING STOMACH HURTS ONCE AGAIN. GIVEN PM MEDS ALONG WITH ZOFRAN, TOLERATING AT PRESENT. TED CHAPIN RN
[2019-09-29 22:17] LABS: BUN 17 mg/dl (7-24); CHLORIDE 107 mmol/L (98-107); CREATININE 1.23 mg/dL (0.70-1.30); POTASSIUM 3.5 mmol/L (3.5-5.1); SODIUM 137 mmol/L (136-145)
--- NOTE | 2019-09-29 23:18 | NUR ---
PT. SLEEPING, RESTORIL EFFECTIVE FOR INSOMNIA AND ZOFRAN EFFECTIVE FOR NAUSEA.
[2019-09-30] VITALS: BP 112/60
[2019-09-30 04:00] VITALS: BP 130/83
--- NOTE | 2019-09-30 04:03 | NUR ---
DR. MENSAH NOTIFIED OF PT DRAMATICALLY GAGGING AND VOMITING. PT. STATING ZOFRAN GIVEN AT 315AM INEFFECTIVE. ORDERS RECEIVED. TED CHAPIN RN
--- NOTE | 2019-09-30 04:28 | NUR ---
PT. GIVEN PHENERGAN ORDERED AT 0420 FOR CONTINUING COMPLAINTS OF NAUSEA. WILL CONTINUE TO MONITOR.
--- NOTE | 2019-09-30 04:30 | NUR ---
PT. HAD A TOTAL OF APPROX 300CC'S OF GREEN/YELLOW LIQUID EMESIS PRIOR TO PHENERGAN. PT. STATES HE DOESNT FEEL NAUSEATED, PHENERGAN EFFECTIVE. TED CHAPIN RN
[2019-09-30 06:17] LABS: BASO # 0.1 10*3/uL (0.0-0.1); BASO % 0.8 % (0.0-1.0); EOS % 0.1 % (1.0-4.0); HEMATOCRIT 39.9 % (42.0-52.0); LYMPH # 2.1 10*3/uL (1.3-4.4); LYMPH % 26.8 % (27.0-41.0); MEAN CELL VOLUME 88.3 fl (80.0-94.0); MEAN CORPUSCULAR HGB 29.9 pg (27.0-31.0); MEAN CORPUSCULAR HGB CONC 33.8 g/dl (33.0-37.0); MEAN PLATELET VOLUME 10.4 fl (9.6-12.3); MONO # 0.7 10*3/uL (0.1-1.0); MONO % 8.4 % (3.0-9.0); NEUT # 4.9 10*3/uL (2.3-7.9); NEUT % 63.6 % (47.0-73.0); PLATELET COUNT AUTOMATED 280 10*3/uL (130-400); RED BLOOD COUNT 4.52 10*6/uL (4.50-5.90); RED CELL DISTRI WIDTH 12.9 % (0-14.5); WHITE BLOOD COUNT 7.8 10*3/uL (4.8-10.8)
[2019-09-30 06:24] LABS: ALBUMIN 3.3 gm/dl (3.1-4.5); CHLORIDE 108 mmol/L (98-107); POTASSIUM 3.6 mmol/L (3.5-5.1); SODIUM 141 mmol/L (136-145)
[2019-09-30 06:30] LABS: ALKALINE PHOSPHATASE 86 U/L (45-117); BUN 15 mg/dl (7-24); CREATININE 0.99 mg/dL (0.70-1.30); SGOT/AST 12 IU/L (3-35); SGPT/ALT 23 U/L (12-78); TOTAL PROTEIN 6.2 gm/dL (6.4-8.2)
--- NOTE | 2019-09-30 06:32 | NUR ---
PT. SCREAMING AND CRYING THAT HE NEEDS TO "TALK TO SOMENONE". STATED HE GETS ANXIOUS CAUSING HIS STOMACH TO HURT THEN STARTS VOMITING. AND BECOMES MORE ANXIOUS. DR. MENSAH NOTIFIED AND ORDERS RECEIVED FOR PSYCH CONSULT. PT. ASKED WHAT WOULD HAPPEN IF HE WASN'T ABLE TO KEEP FOOD DOWN. THIS NURSE EXPLAINED THE THERE IS THINGS LIKE TUBE FEEDING FOR NUTRITIONAL SUPPORT IF NEEDED. PT. VOICED REINFORCED NEED TO TALK TO SOMEONE. ATTEMPTS TO CALM PATIENT AND TALK WITH PATIENT UNSUCCESSFUL. TED CHAPIN RN
--- NOTE | 2019-09-30 06:43 | NUR ---
BEHAVIORIAL HEALTH NOTIFIED OF CONSULT. TED CHAPIN RN
[2019-09-30 08:00] VITALS: BP 119/66
--- NOTE | 2019-09-30 08:20 | NUR ---
MEDICATED WITH ZOFRAN 4MG IV FOR COMPLAINTS OF NAUSEA. REQUESTING TO SEE THE . CALLED.
--- NOTE | 2019-09-30 10:40 | NUR ---
DR. WOODSON HERE TO SEE PATIENT. SOON LEAVING ROOM PATIENT IS SCREAMING AND VERY ANXIOUS. MOTHER HERE AT BEDSIDE. TOLD MOM "HOW WOULD YOU LIKE TO HAVE A RECTAL EXAM WHILE EATING BREAKFAST?"
--- NOTE | 2019-09-30 10:50 | NUR ---
MEDICATED WITH ATIVAN 1MG IV FOR ANXIETY/PANIC ATTACK.
--- NOTE | 2019-09-30 11:15 | NUR ---
TRANSFERRED TO ROOM [facility] VIA BED.
[2019-09-30 12:00] VITALS: BP 130/84
--- NOTE | 2019-09-30 12:10 | NUR ---
PATIENT MEDICATED WITH IV ZOFRAN AT THIS TIME PER ORDER FOR COMPLAINTS OF INCREASED NAUSEA. WILL MONITOR FOR EFFECTIVENESS.
--- NOTE | 2019-09-30 12:16 | NUR ---
PT LIVES AT HOME WITH HIS MOTHER AND IS INDEPENDENT IN CARE. WILL RETURN HOME WHEN MEDICALLY STABLE.
--- NOTE | 2019-09-30 13:10 | NUR ---
PER PATIENT, ZOFRAN HAS BEEN EFFECTIVE. COMFORTABLE AT THIS TIME.
--- NOTE | 2019-09-30 15:59 | NUR ---
PATIENT MEDICATED WITH IV ZOFRAN AT THIS TIME FOR COMPLAINTS OF NAUSEA. WILL MONITOR.
[2019-09-30 16:00] VITALS: BP 134/82
--- NOTE | 2019-09-30 16:59 | NUR ---
PT UP WALKING IN HALLS. STATES THAT ZOFRAN HAS BEEN EFFECTIVE AND HE FEELS COMFORTABLE AT THIS TIME.
[2019-09-30 20:00] VITALS: BP 133/78
--- NOTE | 2019-09-30 20:10 | NUR ---
1952 RESTING IN BED TALKING ON THE PHONE. ALERT AND PLEASANT. NO C/O'S PAIN OR ANXIETY VOICED AT THIS TIME. HEP LOCK'S INTACT X'S 2 LA. NO DISTRESS NOTED. STATES HE DID NOT HAVE HIS PANTS, WALLET, OR UNDERWEAR IN [facility] FROM [facility]. CALLED HIS MOM - SHE HAD TAKEN THESE BELONGINGS HOME.
--- NOTE | 2019-09-30 22:08 | NUR ---
UP AND ABOUT IN THE WOODS. REMAINS PLEASANT AND COOPERATIVE. REFUSED EARLIER REMERON.
--- NOTE | 2019-09-30 23:28 | NUR ---
[id number] SITTING UP IN BED WATCHING T.V. PLEASANT & COOPERATIVE AT THIS TIME. BLOOD SUGAR 187; COVERAGE PER EMAR. PT. VOICES NO C/O AT THIS TIME; CALL LIGHT WITHIN REACH.
[2019-10-01] VITALS: BP 130/77
--- NOTE | 2019-10-01 04:05 | NUR ---
PT. TOLD PA THAT HE WANTED HIS BLOOD SUGAR CHECK. BLOOD SUGAR 287.
--- NOTE | 2019-10-01 04:10 | NUR ---
C/O STOMACH HURTING & REQUESTING CARAFATE. CARAFATE GIVEN PER PT'S REQUEST.
--- NOTE | 2019-10-01 04:12 | NUR ---
PT. C/O FEELING NAUSEOUS. TOOK PATIENT A TRASH BARREL TO THROW UP IN.
--- NOTE | 2019-10-01 04:16 | NUR ---
MEDICATED WITH ZOFRAN FOR NAUSEA/VOMTING.
--- NOTE | 2019-10-01 06:30 | NUR ---
PT. VERY WHINING & TEARFUL. TOOK PT. HIS PO MEDICATION ALONG WITH A SIP OF KEVIN CHARLENE.
[2019-10-01 07:34] LABS: BASO # 0.1 10*3/uL (0.0-0.1); BASO % 0.9 % (0.0-1.0); EOS % 0.2 % (1.0-4.0); HEMATOCRIT 41.3 % (42.0-52.0); LYMPH # 1.7 10*3/uL (1.3-4.4); LYMPH % 30.7 % (27.0-41.0); MEAN CELL VOLUME 88.2 fl (80.0-94.0); MEAN CORPUSCULAR HGB 29.7 pg (27.0-31.0); MEAN CORPUSCULAR HGB CONC 33.7 g/dl (33.0-37.0); MONO # 0.4 10*3/uL (0.1-1.0); NEUT # 3.3 10*3/uL (2.3-7.9); NEUT % 59.8 % (47.0-73.0); PLATELET COUNT AUTOMATED 264 10*3/uL (130-400); RED BLOOD COUNT 4.68 10*6/uL (4.50-5.90); RED CELL DISTRI WIDTH 12.6 % (0-14.5); WHITE BLOOD COUNT 5.5 10*3/uL (4.8-10.8)
[2019-10-01 07:45] LABS: BUN 12 mg/dl (7-24); CHLORIDE 105 mmol/L (98-107); POTASSIUM 3.5 mmol/L (3.5-5.1); SODIUM 141 mmol/L (136-145)
[2019-10-01 08:00] VITALS: BP 126/68
--- NOTE | 2019-10-01 09:58 | NUR ---
IV SITE TO LEFT WRIST REMOVED FOR LEAKING AND PAIN WITH INFUSION. IV SITE TO LEFT FOREARM INTACT AND STILL WORKING. NO FURTHER COMPLAINTS AT THIS TIME.
--- NOTE | 2019-10-01 10:21 | NUR ---
CALLED TO ROOM FOR COMPLAINTS OF ABDOMINAL PAIN, PT IS SITTING ON BED, KNEES TO CHEST AND ROCKING BACK AND FORTH WHILE WRAPPED IN A BLANKET. CALLED TO INFORM. SAID TO GIVE TYLENOL FOR THE PAIN.
--- NOTE | 2019-10-01 10:29 | NUR ---
REFUSED TO TAKE TYLENOL. PT THEN WALKED TO RESTROOM AND PROCEEDED TO WAIL/CRY VERY LOUDLY AND USING FOUL LANGUAGE. MADE AWARE. SAID HE WOULD ORDER TRAMADOL.
--- NOTE | 2019-10-01 10:38 | NUR ---
PT WILL RETURN HOME WITH PARENTS WHEN MEDICALLY STABLE. WILL CONTINUE TO FOLLOW.
--- NOTE | 2019-10-01 10:45 | NUR ---
ULTRAM GIVEN FOR C/O ABD PAIN, SEVERE PER PT. WILL MONITOR.
--- NOTE | 2019-10-01 10:48 | NUR ---
IN TO SEE PT.
--- NOTE | 2019-10-01 11:35 | NUR ---
PER PT, ULTRAM WAS NOT EFFECTIVE.
[2019-10-01 12:00] VITALS: BP 123/79; BP 128/92
--- NOTE | 2019-10-01 15:05 | NUR ---
PT REQUESTING TO BE DISCHARGED. NOTIFIED. ALSO NOTIFIED PT WOULD LIKE TO SEE A DOCTOR. SAID OK.
[2019-10-01] MEDS ORDERED: REGLAN5 MG PO (15:30)
[2019-10-01] MEDS ORDERED: MIRTAZAPINE15 M2 PO (15:30)
[2019-10-01] MEDS ORDERED: Carafate1 GM PO (15:30)
[2019-10-01] MEDS ORDERED: HYDROXYZINE HCL25 MG PO (15:30)
[2019-10-01] MEDS ORDERED: ZOFRAN4 MG PO (16:01)
--- NOTE | 2019-10-01 16:58 | NUR ---
Discharge instructions reviewed with patient/family. Patient receptive and verbalizes understanding. Follow-up care arranged. Written instructions given to patient/family. TRISTON VERONICA
== END 2019-10-01 16:58 | disposition home or self-care (01) | DRG 74 ==
LOC: ED 21:11 → EDHOLD 09-27 00:09 → 5E 09-27 00:09 → 4E 09-27 00:09 → ICCU 09-27 00:09 → 5E 09-27 00:09 → ICCU 09-29 09:26 → 4E 09-30 10:50
PROVIDERS: Family Medicine; Hospitalist; Internal Medicine; Nurse Practitioner Family; Student in an Organized Health Care Education/Training Program; ADMIT Emergency Medicine
DX: E10.43 Type 1 diabetes mellitus with diabetic autonomic (poly)neuropathy (principal); E87.1 Hypo-osmolality and hyponatremia; F33.2 Major depressive disorder, recurrent severe without psychotic features; E10.10 Type 1 diabetes mellitus with ketoacidosis without coma; K31.84 Gastroparesis; F17.210 Nicotine dependence, cigarettes, uncomplicated; F41.1 Generalized anxiety disorder; K21.9 Gastro-esophageal reflux disease without esophagitis; R11.15 Cyclical vomiting syndrome unrelated to migraine; G25.71 Drug induced akathisia; T43.595A Adverse effect of other antipsychotics and neuroleptics, initial encounter; Y92.238 Other place in hospital as the place of occurrence of the external cause; F12.10 Cannabis abuse, uncomplicated; J45.909 Unspecified asthma, uncomplicated; Z79.4 Long term (current) use of insulin; Z71.6 Tobacco abuse counseling; Z88.8 Allergy status to other drugs, medicaments and biological substances; Z90.49 Acquired absence of other specified parts of digestive tract; Z82.49 Family history of ischemic heart disease and other diseases of the circulatory system; Z81.8 Family history of other mental and behavioral disorders; Z83.79 Family history of other diseases of the digestive system; Z79.899 Other long term (current) drug therapy

== ENCOUNTER 2019-10-10 07:34 | Emergency (ER) | payer OTHER ==
[~2019-10-10] VITALS: Ht 185.4 cm; Wt 70.3 kg
[~2019-10-10 07:34] MED LIST changes: +HYDROXYZINE HCL25 MG PO; +TRESIBA FL100 UNIT/1 SQ
[2019-10-10 08:27] LABS: BASO # 0.1 10*3/uL (0.0-0.1); BASO % 1.5 % (0.0-1.0); EOS # 0.2 10*3/uL (0.0-0.4); EOS % 3.2 % (1.0-4.0); HEMATOCRIT 41.6 % (42.0-52.0); LYMPH # 2.5 10*3/uL (1.3-4.4); LYMPH % 32.4 % (27.0-41.0); MEAN CELL VOLUME 89.5 fl (80.0-94.0); MEAN CORPUSCULAR HGB 30.1 pg (27.0-31.0); MEAN CORPUSCULAR HGB CONC 33.7 g/dl (33.0-37.0); MEAN PLATELET VOLUME 9.7 fl (9.6-12.3); MONO # 0.6 10*3/uL (0.1-1.0); MONO % 8.2 % (3.0-9.0); NEUT # 4.1 10*3/uL (2.3-7.9); NEUT % 54.3 % (47.0-73.0); PLATELET COUNT AUTOMATED 300 10*3/uL (130-400); RED BLOOD COUNT 4.65 10*6/uL (4.50-5.90); RED CELL DISTRI WIDTH 13.4 % (0-14.5); WHITE BLOOD COUNT 7.6 10*3/uL (4.8-10.8)
[2019-10-10 08:35] LABS: URINE AMPHETAMINES < 1000 (1000ng/ml); URINE BARBITURATES < 200 (200ng/ml); URINE BENZODIAZEPINES < 200 (200ng/ml); URINE CANNABINOIDS (THC) > 50 (50ng/ml); URINE COCAINE > 300 (300ng/ml); URINE METHADONE < 300 (300ng/ml); URINE OPIATES < 300 (300ng/ml)
[2019-10-10 08:39] LABS: URINE PHENCYCLIDINE < 25 (25ng/ml)
[2019-10-10 08:42] LABS: ALBUMIN 3.7 gm/dl (3.1-4.5); ALKALINE PHOSPHATASE 121 U/L (45-117); BUN 18 mg/dl (7-24); CHLORIDE 104 mmol/L (98-107); CREATININE 1.09 mg/dL (0.70-1.30); LIPASE 165 U/L (73-393); POTASSIUM 3.9 mmol/L (3.5-5.1); SGOT/AST 34 IU/L (3-35); SGPT/ALT 50 U/L (12-78); SODIUM 139 mmol/L (136-145); TOTAL PROTEIN 7.1 gm/dL (6.4-8.2)
[2019-10-10] MEDS ORDERED: ZOFRAN4 MG PO (13:19)
== END 2019-10-10 13:22 | disposition home or self-care (01) ==
LOC: ED 07:34
PROVIDERS: Emergency Medicine
DX: R11.15 Cyclical vomiting syndrome unrelated to migraine (principal); F41.9 Anxiety disorder, unspecified; E11.9 Type 2 diabetes mellitus without complications; Z88.8 Allergy status to other drugs, medicaments and biological substances; Z79.899 Other long term (current) drug therapy; Z79.4 Long term (current) use of insulin; Z90.49 Acquired absence of other specified parts of digestive tract

== ENCOUNTER 2020-07-05 08:02 | Observation (INO) | payer OTHER ==
[~2020-07-05] VITALS: Ht 185.4 cm; Wt 81.4 kg
[2020-07-05 08:06] VITALS: BP 144/78
[2020-07-05 08:23] LABS: BASO # 0.1 10*3/uL (0.0-0.1); BASO % 0.7 % (0.0-1.0); EOS # 0.1 10*3/uL (0.0-0.4); EOS % 1.6 % (1.0-4.0); HEMATOCRIT 41.6 % (42.0-52.0); LYMPH # 2.1 10*3/uL (1.3-4.4); MEAN CELL VOLUME 87.2 fl (80.0-94.0); MEAN CORPUSCULAR HGB 29.6 pg (27.0-31.0); MEAN CORPUSCULAR HGB CONC 33.9 g/dl (33.0-37.0); MEAN PLATELET VOLUME 9.9 fl (9.6-12.3); MONO # 0.5 10*3/uL (0.1-1.0); MONO % 7.6 % (3.0-9.0); NEUT # 4.2 10*3/uL (2.3-7.9); NEUT % 59.8 % (47.0-73.0); PLATELET COUNT AUTOMATED 241 10*3/uL (130-400); RED BLOOD COUNT 4.77 10*6/uL (4.50-5.90); RED CELL DISTRI WIDTH 12.5 % (0-14.5)
[2020-07-05 08:38] LABS: ALBUMIN 3.5 gm/dl (3.1-4.5); ALKALINE PHOSPHATASE 78 U/L (45-117); BUN 15 mg/dl (7-24); CHLORIDE 106 mmol/L (98-107); CPK 311 U/L (39-308); CREATININE 0.98 mg/dL (0.70-1.30); LIPASE 138 U/L (73-393); POTASSIUM 3.7 mmol/L (3.5-5.1); SGOT/AST 17 IU/L (3-35); SGPT/ALT 25 U/L (12-78); SODIUM 139 mmol/L (136-145); TOTAL PROTEIN 6.4 gm/dL (6.4-8.2)
[2020-07-05 08:46] LABS: ETHYL ALCOHOL < 3.0 mg/dl (<3)
[2020-07-05 10:10] VITALS: BP 134/80
[2020-07-05 13:08] VITALS: BP 123/66
[2020-07-05 13:09] LABS: BILIRUBIN Negative (Negative); BLOOD Negative (Negative); CLARITY Clear (Clear); COLOR Yellow (Yellow); GLUCOSE 1+ (Negative); KETONE Negative (Negative); LEUKO ESTERASE Negative (Negative); NITRITE Negative (Negative); UROBILINOGEN 0.2 E.U./dl (0.0-1.0)
[2020-07-05 13:15] LABS: PH 8.5 (4.5-8.0)
[2020-07-05 13:18] LABS: URINE AMPHETAMINES < 1000 (1000ng/ml); URINE BARBITURATES < 200 (200ng/ml); URINE BENZODIAZEPINES < 200 (200ng/ml); URINE CANNABINOIDS (THC) > 50 (50ng/ml); URINE COCAINE < 300 (300ng/ml); URINE METHADONE < 300 (300ng/ml); URINE OPIATES > 300 (300ng/ml)
[2020-07-05 13:20] LABS: EPITHELIAL CELLS 0-2; WBC 0-2 wbc/hpf (0-5)
[2020-07-05 13:22] LABS: URINE PHENCYCLIDINE < 25 (25ng/ml)
[2020-07-05] MEDS ORDERED: LORAZEPAM0.5 MG PO (14:34)
[2020-07-05 16:00] VITALS: BP 91/55
[2020-07-05 20:00] VITALS: BP 108/63
[2020-07-06] VITALS: BP 114/63
[2020-07-06 06:29] LABS: BASO # 0.1 10*3/uL (0.0-0.1); BASO % 0.5 % (0.0-1.0); EOS % 0.1 % (1.0-4.0); HEMATOCRIT 41.4 % (42.0-52.0); LYMPH # 1.8 10*3/uL (1.3-4.4); LYMPH % 18.1 % (27.0-41.0); MEAN CELL VOLUME 87.3 fl (80.0-94.0); MEAN CORPUSCULAR HGB 29.5 pg (27.0-31.0); MEAN CORPUSCULAR HGB CONC 33.8 g/dl (33.0-37.0); MEAN PLATELET VOLUME 9.9 fl (9.6-12.3); MONO # 0.4 10*3/uL (0.1-1.0); MONO % 4.3 % (3.0-9.0); NEUT # 7.8 10*3/uL (2.3-7.9); NEUT % 76.6 % (47.0-73.0); PLATELET COUNT AUTOMATED 257 10*3/uL (130-400); RED BLOOD COUNT 4.74 10*6/uL (4.50-5.90); RED CELL DISTRI WIDTH 12.6 % (0-14.5); WHITE BLOOD COUNT 10.2 10*3/uL (4.8-10.8)
[2020-07-06 06:39] LABS: ACT PARTIAL THROMBO TIME 25.4 SECONDS (20.0-32.1)
[2020-07-06 07:06] LABS: ALBUMIN 3.5 gm/dl (3.1-4.5); BUN 17 mg/dl (7-24); CHLORIDE 100 mmol/L (98-107); CREATININE 0.98 mg/dL (0.70-1.30); POTASSIUM 3.5 mmol/L (3.5-5.1); SGOT/AST 22 IU/L (3-35); SGPT/ALT 27 U/L (12-78); SODIUM 132 mmol/L (136-145); TOTAL PROTEIN 6.7 gm/dL (6.4-8.2)
[2020-07-06 07:13] LABS: ALKALINE PHOSPHATASE 85 U/L (45-117); FREE T4 1.29 ng/dl (0.76-1.46)
[2020-07-06 08:00] VITALS: BP 117/55
[2020-07-06 08:36] LABS: VITAMIN D, 25-HYDROXY 34.5 ng/mL (30-100)
[2020-07-06 12:00] VITALS: BP 116/64
[2020-07-06 16:00] VITALS: BP 129/73
[2020-07-06 20:00] VITALS: BP 146/89
[2020-07-07] VITALS: BP 132/85
[2020-07-07 06:10] LABS: BUN 10 mg/dl (7-24); CHLORIDE 106 mmol/L (98-107); CREATININE 0.85 mg/dL (0.70-1.30); POTASSIUM 3.5 mmol/L (3.5-5.1); SODIUM 140 mmol/L (136-145)
[2020-07-07] MEDS ORDERED: ZOFRAN4 MG PO (11:40)
[2020-07-07] MEDS ORDERED: PHENERGAN25 M3 PO (11:40)
== END 2020-07-07 12:19 | disposition home or self-care (01) ==
LOC: ED 08:02 → EDHOLD 11:25 → 5E 12:41
PROVIDERS: Emergency Medicine; Hospitalist; ADMIT Family Medicine; ATTEND Family Medicine
DX: R11.15 Cyclical vomiting syndrome unrelated to migraine (principal); R10.32 Left lower quadrant pain; K58.9 Irritable bowel syndrome, unspecified; F41.1 Generalized anxiety disorder; F12.90 Cannabis use, unspecified, uncomplicated; F32.9 Major depressive disorder, single episode, unspecified; K21.9 Gastro-esophageal reflux disease without esophagitis; E10.40 Type 1 diabetes mellitus with diabetic neuropathy, unspecified; E10.43 Type 1 diabetes mellitus with diabetic autonomic (poly)neuropathy; E10.10 Type 1 diabetes mellitus with ketoacidosis without coma; K31.84 Gastroparesis; K25.9 Gastric ulcer, unspecified as acute or chronic, without hemorrhage or perforation; J45.909 Unspecified asthma, uncomplicated; F17.210 Nicotine dependence, cigarettes, uncomplicated; Z90.49 Acquired absence of other specified parts of digestive tract; Z98.890 Other specified postprocedural states

== ENCOUNTER 2020-08-15 07:41 | Emergency (ER) | payer OTHER ==
[~2020-08-15] VITALS: Ht 185.4 cm; Wt 77.1 kg
[2020-08-15 08:59] LABS: BASO # 0.1 10*3/uL (0.0-0.1); BASO % 1.1 % (0.0-1.0); EOS # 0.1 10*3/uL (0.0-0.4); EOS % 1.4 % (1.0-4.0); HEMATOCRIT 42.5 % (42.0-52.0); LYMPH # 2.8 10*3/uL (1.3-4.4); LYMPH % 30.7 % (27.0-41.0); MEAN CORPUSCULAR HGB 29.4 pg (27.0-31.0); MEAN CORPUSCULAR HGB CONC 34.1 g/dl (33.0-37.0); MEAN PLATELET VOLUME 10.3 fl (9.6-12.3); MONO # 0.4 10*3/uL (0.1-1.0); MONO % 4.7 % (3.0-9.0); NEUT # 5.5 10*3/uL (2.3-7.9); NEUT % 61.8 % (47.0-73.0); PLATELET COUNT AUTOMATED 269 10*3/uL (130-400); RED BLOOD COUNT 4.94 10*6/uL (4.50-5.90); RED CELL DISTRI WIDTH 12.4 % (0-14.5)
[2020-08-15 09:13] LABS: ALKALINE PHOSPHATASE 107 U/L (45-117); BUN 14 mg/dl (7-24); CHLORIDE 103 mmol/L (98-107); CREATININE 0.94 mg/dL (0.70-1.30); ETHYL ALCOHOL < 3.0 mg/dl (<3); LIPASE 192 U/L (73-393); POTASSIUM 3.4 mmol/L (3.5-5.1); SGOT/AST 14 IU/L (3-35); SGPT/ALT 23 U/L (12-78); SODIUM 137 mmol/L (136-145); TOTAL PROTEIN 7.3 gm/dL (6.4-8.2)
[2020-08-15 11:13] LABS: BILIRUBIN Negative (Negative); BLOOD Negative (Negative); CLARITY Clear (Clear); COLOR Yellow (Yellow); GLUCOSE 1+ (Negative); KETONE Trace (Negative); LEUKO ESTERASE Negative (Negative); NITRITE Negative (Negative); UROBILINOGEN 0.2 E.U./dl (0.0-1.0)
[2020-08-15 11:21] LABS: URINE AMPHETAMINES < 1000 (1000ng/ml); URINE BARBITURATES < 200 (200ng/ml); URINE BENZODIAZEPINES < 200 (200ng/ml); URINE CANNABINOIDS (THC) > 50 (50ng/ml); URINE COCAINE < 300 (300ng/ml); URINE METHADONE < 300 (300ng/ml); URINE OPIATES < 300 (300ng/ml)
[2020-08-15 11:22] LABS: PH 8.5 (4.5-8.0)
[2020-08-15 11:28] LABS: BACTERIA 2+
[2020-08-15 11:30] LABS: URINE PHENCYCLIDINE < 25 (25ng/ml)
[2020-08-15] MEDS ORDERED: PHENERGAN25 M3 PO (11:45)
== END 2020-08-15 12:26 | disposition home or self-care (01) ==
LOC: ED 07:41
PROVIDERS: Emergency Medicine
DX: R11.15 Cyclical vomiting syndrome unrelated to migraine (principal); R10.9 Unspecified abdominal pain; F41.9 Anxiety disorder, unspecified; J45.909 Unspecified asthma, uncomplicated; F32.9 Major depressive disorder, single episode, unspecified; K21.9 Gastro-esophageal reflux disease without esophagitis; E10.40 Type 1 diabetes mellitus with diabetic neuropathy, unspecified; F17.200 Nicotine dependence, unspecified, uncomplicated; Z88.8 Allergy status to other drugs, medicaments and biological substances; Z79.899 Other long term (current) drug therapy; Z79.4 Long term (current) use of insulin; Z87.442 Personal history of urinary calculi; Z90.49 Acquired absence of other specified parts of digestive tract; Z98.890 Other specified postprocedural states

== ENCOUNTER 2020-09-15 06:20 | Inpatient (IN) | payer OTHER ==
[~2020-09-15] VITALS: Ht 185.4 cm; Wt 78.1 kg
[~2020-09-15 06:20] MED LIST changes: +ATIVAN0.5 MG PO; +HUMALOG100 UNIT/2 SQ
[2020-09-15 06:28] VITALS: BP 113/95
[2020-09-15 06:58] LABS: BASO # 0.1 10*3/uL (0.0-0.1); BASO % 1.3 % (0.0-1.0); EOS # 0.3 10*3/uL (0.0-0.4); EOS % 3.1 % (1.0-4.0); HEMATOCRIT 43.7 % (42.0-52.0); LYMPH # 3.5 10*3/uL (1.3-4.4); LYMPH % 41.7 % (27.0-41.0); MEAN CELL VOLUME 86.9 fl (80.0-94.0); MEAN CORPUSCULAR HGB 28.8 pg (27.0-31.0); MEAN CORPUSCULAR HGB CONC 33.2 g/dl (33.0-37.0); MEAN PLATELET VOLUME 9.9 fl (9.6-12.3); MONO # 0.6 10*3/uL (0.1-1.0); MONO % 7.2 % (3.0-9.0); NEUT # 3.8 10*3/uL (2.3-7.9); NEUT % 46.3 % (47.0-73.0); PLATELET COUNT AUTOMATED 317 10*3/uL (130-400); RED BLOOD COUNT 5.03 10*6/uL (4.50-5.90); RED CELL DISTRI WIDTH 13.5 % (0-14.5); WHITE BLOOD COUNT 8.3 10*3/uL (4.8-10.8)
[2020-09-15 07:12] LABS: ALBUMIN 3.4 gm/dl (3.1-4.5); ALKALINE PHOSPHATASE 131 U/L (45-117); BUN 12 mg/dl (7-24); CHLORIDE 104 mmol/L (98-107); CREATININE 0.83 mg/dL (0.70-1.30); LIPASE 319 U/L (73-393); POTASSIUM 4.2 mmol/L (3.5-5.1); SGOT/AST 15 IU/L (3-35); SGPT/ALT 18 U/L (12-78); SODIUM 135 mmol/L (136-145); TOTAL PROTEIN 6.9 gm/dL (6.4-8.2)
[2020-09-15 08:58] VITALS: BP 116/74
[2020-09-15 12:53] VITALS: BP 108/68
[2020-09-15 16:00] VITALS: BP 132/79
[2020-09-15 20:00] VITALS: BP 125/75
[2020-09-16] VITALS: BP 128/87
[2020-09-16 06:14] LABS: BASO # 0.1 10*3/uL (0.0-0.1); BASO % 0.6 % (0.0-1.0); EOS # 0.1 10*3/uL (0.0-0.4); EOS % 0.7 % (1.0-4.0); LYMPH # 3.3 10*3/uL (1.3-4.4); LYMPH % 29.4 % (27.0-41.0); MEAN CELL VOLUME 88.6 fl (80.0-94.0); MEAN CORPUSCULAR HGB 29.3 pg (27.0-31.0); MEAN CORPUSCULAR HGB CONC 33.1 g/dl (33.0-37.0); MEAN PLATELET VOLUME 9.9 fl (9.6-12.3); MONO # 0.9 10*3/uL (0.1-1.0); NEUT # 6.9 10*3/uL (2.3-7.9); NEUT % 60.9 % (47.0-73.0); PLATELET COUNT AUTOMATED 301 10*3/uL (130-400); RED BLOOD COUNT 4.74 10*6/uL (4.50-5.90); RED CELL DISTRI WIDTH 13.8 % (0-14.5); WHITE BLOOD COUNT 11.3 10*3/uL (4.8-10.8)
[2020-09-16 06:27] LABS: BUN 17 mg/dl (7-24); CHLORIDE 101 mmol/L (98-107); POTASSIUM 4.2 mmol/L (3.5-5.1); SODIUM 136 mmol/L (136-145)
[2020-09-16 08:00] VITALS: BP 116/75
== END 2020-09-16 11:19 | disposition home or self-care (01) | DRG 392 ==
LOC: ED 06:20 → 5E 11:25 → EDHOLD 11:25 → 5E 12:05
PROVIDERS: Emergency Medicine; Internal Medicine; ADMIT Internal Medicine; ATTEND Internal Medicine
DX: R11.2 Nausea with vomiting, unspecified (principal); E44.0 Moderate protein-calorie malnutrition; K58.9 Irritable bowel syndrome, unspecified; F41.1 Generalized anxiety disorder; J45.909 Unspecified asthma, uncomplicated; F32.9 Major depressive disorder, single episode, unspecified; R11.15 Cyclical vomiting syndrome unrelated to migraine; K21.9 Gastro-esophageal reflux disease without esophagitis; F17.210 Nicotine dependence, cigarettes, uncomplicated; F12.288 Cannabis dependence with other cannabis-induced disorder; E10.40 Type 1 diabetes mellitus with diabetic neuropathy, unspecified; E10.65 Type 1 diabetes mellitus with hyperglycemia; Z88.8 Allergy status to other drugs, medicaments and biological substances; Z87.442 Personal history of urinary calculi; Z90.49 Acquired absence of other specified parts of digestive tract; Z82.49 Family history of ischemic heart disease and other diseases of the circulatory system; Z81.8 Family history of other mental and behavioral disorders; Z81.3 Family history of other psychoactive substance abuse and dependence; Z83.79 Family history of other diseases of the digestive system; Z83.3 Family history of diabetes mellitus; Z68.22 Body mass index [BMI] 22.0-22.9, adult

== ENCOUNTER 2020-09-21 19:01 | Emergency (ER) | payer OTHER | END 2020-09-21 19:30 | disposition left against medical advice (07) | LOC: ED 19:01 | DX: S69.90XA Unspecified injury of unspecified wrist, hand and finger(s), initial encounter (principal); Z53.21 Procedure and treatment not carried out due to patient leaving prior to being seen by health care provider; X58.XXXA Exposure to other specified factors, initial encounter; Y93.89 Activity, other specified; Y92.89 Other specified places as the place of occurrence of the external cause; Y99.8 Other external cause status ==

== ENCOUNTER 2020-09-21 20:22 | Emergency (ER) | payer OTHER ==
[~2020-09-21] VITALS: Ht 185.4 cm; Wt 76.2 kg
== END 2020-09-22 00:19 | disposition home or self-care (01) ==
LOC: ED 20:22
DX: S62.314A Displaced fracture of base of fourth metacarpal bone, right hand, initial encounter for closed fracture (principal); F12.10 Cannabis abuse, uncomplicated; J45.909 Unspecified asthma, uncomplicated; K21.9 Gastro-esophageal reflux disease without esophagitis; E10.40 Type 1 diabetes mellitus with diabetic neuropathy, unspecified; F17.210 Nicotine dependence, cigarettes, uncomplicated; Z79.899 Other long term (current) drug therapy; Z79.4 Long term (current) use of insulin; Z88.5 Allergy status to narcotic agent; W22.01XA Walked into wall, initial encounter; Y93.89 Activity, other specified; Y92.89 Other specified places as the place of occurrence of the external cause; Y99.9 Unspecified external cause status

== ENCOUNTER 2020-10-10 11:22 | Emergency (ER) | payer OTHER ==
[~2020-10-10] VITALS: Ht 177.8 cm; Wt 81.6 kg
[2020-10-10 12:10] LABS: BASO # 0.1 10*3/uL (0.0-0.1); EOS # 0.2 10*3/uL (0.0-0.4); EOS % 2.6 % (1.0-4.0); LYMPH # 2.7 10*3/uL (1.3-4.4); LYMPH % 37.7 % (27.0-41.0); MEAN CORPUSCULAR HGB 29.6 pg (27.0-31.0); MEAN PLATELET VOLUME 10.1 fl (9.6-12.3); MONO # 0.5 10*3/uL (0.1-1.0); MONO % 6.8 % (3.0-9.0); NEUT # 3.6 10*3/uL (2.3-7.9); NEUT % 50.8 % (47.0-73.0); PLATELET COUNT AUTOMATED 321 10*3/uL (130-400); RED BLOOD COUNT 5.17 10*6/uL (4.50-5.90); RED CELL DISTRI WIDTH 13.4 % (0-14.5)
[2020-10-10 12:27] LABS: ALBUMIN 3.8 gm/dl (3.1-4.5); ALKALINE PHOSPHATASE 110 U/L (45-117); BUN 16 mg/dl (7-24); CHLORIDE 100 mmol/L (98-107); CREATININE 1.07 mg/dL (0.70-1.30); POTASSIUM 4.2 mmol/L (3.5-5.1); SGOT/AST 22 IU/L (3-35); SGPT/ALT 20 U/L (12-78); SODIUM 133 mmol/L (136-145); TOTAL PROTEIN 7.4 gm/dL (6.4-8.2)
[2020-10-10 12:30] LABS: LIPASE 321 U/L (73-393)
== END 2020-10-10 14:12 | disposition home or self-care (01) ==
LOC: ED 11:22
PROVIDERS: Emergency Medicine
DX: R11.2 Nausea with vomiting, unspecified (principal); R10.13 Epigastric pain; F17.200 Nicotine dependence, unspecified, uncomplicated; Z79.899 Other long term (current) drug therapy; Z79.4 Long term (current) use of insulin; Z90.49 Acquired absence of other specified parts of digestive tract

== ENCOUNTER 2020-10-28 03:10 | Emergency (ER) | payer OTHER ==
[~2020-10-28] VITALS: Ht 185.4 cm; Wt 79.4 kg
== END 2020-10-28 03:44 | disposition left against medical advice (07) ==
LOC: ED 03:10
DX: Z00.8 Encounter for other general examination (principal); Z53.21 Procedure and treatment not carried out due to patient leaving prior to being seen by health care provider

== ENCOUNTER 2020-11-21 19:56 | Emergency (ER) | payer OTHER ==
[~2020-11-21] VITALS: Ht 185.4 cm; Wt 77.1 kg
[2020-11-21 21:10] LABS: BASO # 0.1 10*3/uL (0.0-0.1); BASO % 0.6 % (0.0-1.0); HEMATOCRIT 44.5 % (42.0-52.0); LYMPH # 1.4 10*3/uL (1.3-4.4); LYMPH % 7.5 % (27.0-41.0); MEAN CELL VOLUME 86.4 fl (80.0-94.0); MEAN CORPUSCULAR HGB 29.1 pg (27.0-31.0); MEAN CORPUSCULAR HGB CONC 33.7 g/dl (33.0-37.0); MEAN PLATELET VOLUME 10.3 fl (9.6-12.3); MONO # 0.9 10*3/uL (0.1-1.0); MONO % 4.7 % (3.0-9.0); NEUT # 15.6 10*3/uL (2.3-7.9); NEUT % 86.7 % (47.0-73.0); PLATELET COUNT AUTOMATED 317 10*3/uL (130-400); RED BLOOD COUNT 5.15 10*6/uL (4.50-5.90); RED CELL DISTRI WIDTH 12.8 % (0-14.5)
[2020-11-21 21:25] LABS: ALBUMIN 4.1 gm/dl (3.1-4.5); ALKALINE PHOSPHATASE 120 U/L (45-117); BUN 16 mg/dl (7-24); CHLORIDE 102 mmol/L (98-107); CREATININE 1.03 mg/dL (0.70-1.30); LIPASE 119 U/L (73-393); POTASSIUM 4.4 mmol/L (3.5-5.1); SGOT/AST 15 IU/L (3-35); SGPT/ALT 23 U/L (12-78); SODIUM 135 mmol/L (136-145); TOTAL PROTEIN 7.5 gm/dL (6.4-8.2)
[2020-11-22] MEDS ORDERED: CIPRO500 MG PO (03:04)
[2020-11-22] MEDS ORDERED: FLAGYL500 MG PO (03:04)
== END 2020-11-22 03:10 | disposition home or self-care (01) ==
LOC: ED 19:56
PROVIDERS: Physician Assistant
DX: K52.9 Noninfective gastroenteritis and colitis, unspecified (principal); R11.15 Cyclical vomiting syndrome unrelated to migraine; E11.65 Type 2 diabetes mellitus with hyperglycemia; D72.829 Elevated white blood cell count, unspecified; F17.200 Nicotine dependence, unspecified, uncomplicated; Z88.8 Allergy status to other drugs, medicaments and biological substances; Z79.899 Other long term (current) drug therapy; Z79.4 Long term (current) use of insulin; Z90.49 Acquired absence of other specified parts of digestive tract

== ENCOUNTER 2020-11-25 10:44 | Emergency (ER) | payer OTHER ==
[~2020-11-25] VITALS: Ht 185.4 cm; Wt 77.1 kg
[~2020-11-25 10:44] MED LIST changes: +CIPRO500 MG PO; +FLAGYL500 MG PO
[2020-11-25 11:25] LABS: BASO # 0.1 10*3/uL (0.0-0.1); BASO % 0.9 % (0.0-1.0); EOS # 0.1 10*3/uL (0.0-0.4); EOS % 1.8 % (1.0-4.0); HEMATOCRIT 39.9 % (42.0-52.0); LYMPH # 2.4 10*3/uL (1.3-4.4); LYMPH % 31.8 % (27.0-41.0); MEAN CELL VOLUME 88.3 fl (80.0-94.0); MEAN CORPUSCULAR HGB 29.9 pg (27.0-31.0); MEAN CORPUSCULAR HGB CONC 33.8 g/dl (33.0-37.0); MEAN PLATELET VOLUME 9.5 fl (9.6-12.3); MONO # 0.5 10*3/uL (0.1-1.0); NEUT # 4.5 10*3/uL (2.3-7.9); NEUT % 59.1 % (47.0-73.0); PLATELET COUNT AUTOMATED 222 10*3/uL (130-400); RED BLOOD COUNT 4.52 10*6/uL (4.50-5.90); RED CELL DISTRI WIDTH 12.9 % (0-14.5); WHITE BLOOD COUNT 7.7 10*3/uL (4.8-10.8)
[2020-11-25 11:40] LABS: ALBUMIN 3.3 gm/dl (3.1-4.5); ALKALINE PHOSPHATASE 95 U/L (45-117); BUN 20 mg/dl (7-24); CHLORIDE 103 mmol/L (98-107); CREATININE 0.89 mg/dL (0.70-1.30); POTASSIUM 3.6 mmol/L (3.5-5.1); SGOT/AST 19 IU/L (3-35); SGPT/ALT 23 U/L (12-78); SODIUM 137 mmol/L (136-145); TOTAL PROTEIN 6.3 gm/dL (6.4-8.2)
[2020-11-25 11:41] LABS: ACETAMINOPHEN (TYLENOL) < 5.0 ug/ml (10-30)
[2020-11-25 12:19] LABS: BILIRUBIN Negative (Negative); BLOOD Negative (Negative); CLARITY Clear (Clear); COLOR Yellow (Yellow); GLUCOSE 1+ (Negative); KETONE Negative (Negative); LEUKO ESTERASE Negative (Negative); NITRITE Negative (Negative); UROBILINOGEN 0.2 E.U./dl (0.0-1.0)
[2020-11-25 12:26] LABS: URINE AMPHETAMINES < 1000 (1000ng/ml); URINE BARBITURATES < 200 (200ng/ml); URINE BENZODIAZEPINES < 200 (200ng/ml); URINE CANNABINOIDS (THC) > 50 (50ng/ml); URINE COCAINE < 300 (300ng/ml); URINE METHADONE < 300 (300ng/ml); URINE OPIATES < 300 (300ng/ml)
[2020-11-25 12:27] LABS: URINE PHENCYCLIDINE < 25 (25ng/ml)
[2020-11-25 12:28] LABS: RBC 0-2 rbc/hpf (0-2)
== END 2020-11-25 15:03 | disposition home or self-care (01) ==
LOC: ED 10:44
PROVIDERS: Physician Assistant
DX: T40.601A Poisoning by unspecified narcotics, accidental (unintentional), initial encounter (principal); F17.200 Nicotine dependence, unspecified, uncomplicated; Z88.8 Allergy status to other drugs, medicaments and biological substances; Z79.899 Other long term (current) drug therapy; Y92.89 Other specified places as the place of occurrence of the external cause

== ENCOUNTER 2021-01-19 09:02 | Observation (INO) | payer OTHER ==
[~2021-01-19] VITALS: Ht 185.4 cm; Wt 79.8 kg
[~2021-01-19 09:02] MED LIST changes: +HUMALOG100 UNIT/2 SC; -HUMALOG100 UNIT/2 SQ
[2021-01-19 09:11] VITALS: BP 125/71
[2021-01-19 09:37] LABS: BASO # 0.1 10*3/uL (0.0-0.1); BASO % 1.1 % (0.0-1.0); EOS % 0.1 % (1.0-4.0); HEMATOCRIT 46.8 % (42.0-52.0); LYMPH # 2.2 10*3/uL (1.3-4.4); LYMPH % 18.6 % (27.0-41.0); MEAN CELL VOLUME 87.3 fl (80.0-94.0); MEAN CORPUSCULAR HGB 29.3 pg (27.0-31.0); MEAN CORPUSCULAR HGB CONC 33.5 g/dl (33.0-37.0); MEAN PLATELET VOLUME 10.2 fl (9.6-12.3); MONO # 0.3 10*3/uL (0.1-1.0); MONO % 2.9 % (3.0-9.0); NEUT % 76.8 % (47.0-73.0); PLATELET COUNT AUTOMATED 313 10*3/uL (130-400); RED BLOOD COUNT 5.36 10*6/uL (4.50-5.90); RED CELL DISTRI WIDTH 12.6 % (0-14.5); WHITE BLOOD COUNT 11.8 10*3/uL (4.8-10.8)
[2021-01-19 09:52] LABS: ALBUMIN 3.9 gm/dl (3.1-4.5); ALKALINE PHOSPHATASE 144 U/L (45-117); BUN 17 mg/dl (7-24); CHLORIDE 101 mmol/L (98-107); CREATININE 1.24 mg/dL (0.70-1.30); LIPASE 94 U/L (73-393); POTASSIUM 3.3 mmol/L (3.5-5.1); SGOT/AST 15 IU/L (3-35); SGPT/ALT 26 U/L (12-78); SODIUM 140 mmol/L (136-145); TOTAL PROTEIN 7.6 gm/dL (6.4-8.2)
[2021-01-19 11:20] VITALS: BP 124/70
[2021-01-19 12:45] LABS: BILIRUBIN Negative (Negative); BLOOD Negative (Negative); CLARITY Clear (Clear); COLOR Yellow (Yellow); GLUCOSE 3+ (Negative); KETONE 3+ (Negative); LEUKO ESTERASE Negative (Negative); NITRITE Negative (Negative); PH 6.5 (4.5-8.0); SPECIFIC GRAVITY >= 1.030 (1.001-1.030); UROBILINOGEN 0.2 E.U./dl (0.0-1.0)
[2021-01-19 12:54] LABS: URINE AMPHETAMINES < 1000 (1000ng/ml); URINE BARBITURATES < 200 (200ng/ml); URINE BENZODIAZEPINES < 200 (200ng/ml); URINE CANNABINOIDS (THC) > 50 (50ng/ml); URINE COCAINE < 300 (300ng/ml); URINE METHADONE < 300 (300ng/ml); URINE OPIATES > 300 (300ng/ml)
[2021-01-19 12:56] LABS: EPITHELIAL CELLS 0-2
[2021-01-19 12:57] LABS: URINE PHENCYCLIDINE < 25 (25ng/ml)
[2021-01-19 13:25] VITALS: BP 124/74
[2021-01-19 15:15] VITALS: BP 121/62
[2021-01-19] MEDS ORDERED: PANTOPRAZOLE SO40 MG PO (19:46)
[2021-01-19] MEDS ORDERED: LORAZEPAM0.5 MG PO (19:46)
[2021-01-19 20:00] VITALS: BP 118/79
[2021-01-20] VITALS: BP 108/52
[2021-01-20 06:28] LABS: BASO # 0.1 10*3/uL (0.0-0.1); BASO % 0.9 % (0.0-1.0); EOS # 0.1 10*3/uL (0.0-0.4); EOS % 0.6 % (1.0-4.0); HEMATOCRIT 41.7 % (42.0-52.0); LYMPH # 3.3 10*3/uL (1.3-4.4); LYMPH % 33.2 % (27.0-41.0); MEAN CELL VOLUME 88.3 fl (80.0-94.0); MEAN CORPUSCULAR HGB CONC 32.9 g/dl (33.0-37.0); MEAN PLATELET VOLUME 10.3 fl (9.6-12.3); MONO # 0.8 10*3/uL (0.1-1.0); MONO % 7.8 % (3.0-9.0); NEUT # 5.7 10*3/uL (2.3-7.9); NEUT % 57.2 % (47.0-73.0); PLATELET COUNT AUTOMATED 250 10*3/uL (130-400); RED BLOOD COUNT 4.72 10*6/uL (4.50-5.90)
[2021-01-20 06:58] LABS: ALKALINE PHOSPHATASE 113 U/L (45-117); BUN 15 mg/dl (7-24); CHLORIDE 104 mmol/L (98-107); CREATININE 0.87 mg/dL (0.70-1.30); SGOT/AST 10 IU/L (3-35); SGPT/ALT 21 U/L (12-78); SODIUM 137 mmol/L (136-145)
[2021-01-20 07:01] LABS: POTASSIUM 4.5 mmol/L (3.5-5.1)
[2021-01-20 08:00] VITALS: BP 116/60
[2021-01-20] MEDS ORDERED: LANTUS SOL100 UNIT/1 SC (11:31)
[2021-01-20 12:00] VITALS: BP 127/80
[2021-01-21] MEDS ORDERED: ZOFRAN4 MG PO (12:45)
== END 2021-01-20 12:36 | disposition home or self-care (01) ==
LOC: ED 09:02 → EDHOLD 13:35 → 5E 13:35
PROVIDERS: Emergency Medicine; Internal Medicine; ADMIT Internal Medicine; ATTEND Internal Medicine
DX: R11.15 Cyclical vomiting syndrome unrelated to migraine (principal); E10.65 Type 1 diabetes mellitus with hyperglycemia; F12.10 Cannabis abuse, uncomplicated; R10.9 Unspecified abdominal pain; D72.829 Elevated white blood cell count, unspecified; D64.9 Anemia, unspecified; E87.6 Hypokalemia; R82.4 Acetonuria; R06.82 Tachypnea, not elsewhere classified; R00.0 Tachycardia, unspecified; F17.210 Nicotine dependence, cigarettes, uncomplicated

== ENCOUNTER 2021-01-21 09:33 | Emergency (ER) | payer OTHER ==
[~2021-01-21 09:33] MED LIST changes: +LANTUS SOL100 UNIT/1 SC
[2021-01-21 09:56] LABS: BASO # 0.1 10*3/uL (0.0-0.1); BASO % 1.1 % (0.0-1.0); EOS # 0.1 10*3/uL (0.0-0.4); EOS % 1.1 % (1.0-4.0); HEMATOCRIT 43.7 % (42.0-52.0); LYMPH # 3.2 10*3/uL (1.3-4.4); LYMPH % 35.2 % (27.0-41.0); MEAN CELL VOLUME 87.2 fl (80.0-94.0); MEAN CORPUSCULAR HGB 29.1 pg (27.0-31.0); MEAN CORPUSCULAR HGB CONC 33.4 g/dl (33.0-37.0); MEAN PLATELET VOLUME 9.9 fl (9.6-12.3); MONO # 0.6 10*3/uL (0.1-1.0); MONO % 6.1 % (3.0-9.0); NEUT # 5.1 10*3/uL (2.3-7.9); NEUT % 56.3 % (47.0-73.0); PLATELET COUNT AUTOMATED 273 10*3/uL (130-400); RED BLOOD COUNT 5.01 10*6/uL (4.50-5.90); WHITE BLOOD COUNT 9.1 10*3/uL (4.8-10.8)
[2021-01-21 10:11] LABS: ALBUMIN 3.4 gm/dl (3.1-4.5); ALKALINE PHOSPHATASE 125 U/L (45-117); BUN 16 mg/dl (7-24); CHLORIDE 105 mmol/L (98-107); CREATININE 1.05 mg/dL (0.70-1.30); LIPASE 153 U/L (73-393); POTASSIUM 3.6 mmol/L (3.5-5.1); SGOT/AST 16 IU/L (3-35); SGPT/ALT 26 U/L (12-78); SODIUM 139 mmol/L (136-145); TOTAL PROTEIN 6.8 gm/dL (6.4-8.2)
[2021-01-21] MEDS ORDERED: ZOFRAN4 MG PO (12:45)
== END 2021-01-21 12:50 | disposition home or self-care (01) ==
LOC: ED 09:33
PROVIDERS: Emergency Medicine
DX: R11.15 Cyclical vomiting syndrome unrelated to migraine (principal); E87.2 Acidosis; R11.2 Nausea with vomiting, unspecified; J45.909 Unspecified asthma, uncomplicated; F32.9 Major depressive disorder, single episode, unspecified; K21.9 Gastro-esophageal reflux disease without esophagitis; F17.200 Nicotine dependence, unspecified, uncomplicated; Z88.8 Allergy status to other drugs, medicaments and biological substances; Z79.4 Long term (current) use of insulin; Z79.899 Other long term (current) drug therapy; Z87.442 Personal history of urinary calculi; Z90.49 Acquired absence of other specified parts of digestive tract

== ENCOUNTER 2021-03-07 09:14 | Emergency (ER) | payer OTHER ==
[2021-03-07] MEDS ORDERED: ZOFRAN4 MG PO (17:45)
[2021-03-07] MEDS ORDERED: PHENERGAN25 M3 PO (17:45)
[2021-03-08] MEDS ORDERED: PHENERGAN25 M3 PO (23:25)
== END 2021-03-07 17:42 | disposition home or self-care (01) ==
LOC: ED 09:14
DX: R10.31 Right lower quadrant pain (principal); R11.10 Vomiting, unspecified; Z88.8 Allergy status to other drugs, medicaments and biological substances; Z79.899 Other long term (current) drug therapy; F17.200 Nicotine dependence, unspecified, uncomplicated

== ENCOUNTER 2021-03-08 18:57 | Emergency (ER) | payer OTHER ==
[~2021-03-08] VITALS: Ht 185.4 cm; Wt 77.1 kg
[2021-03-08 19:57] LABS: BASO # 0.1 10*3/uL (0.0-0.1); BASO % 0.4 % (0.0-1.0); EOS % 0.1 % (1.0-4.0); HEMATOCRIT 43.5 % (42.0-52.0); LYMPH # 2.2 10*3/uL (1.3-4.4); LYMPH % 17.5 % (27.0-41.0); MEAN CELL VOLUME 85.5 fl (80.0-94.0); MEAN CORPUSCULAR HGB 29.7 pg (27.0-31.0); MEAN CORPUSCULAR HGB CONC 34.7 g/dl (33.0-37.0); MEAN PLATELET VOLUME 9.9 fl (9.6-12.3); MONO # 1.1 10*3/uL (0.1-1.0); MONO % 8.7 % (3.0-9.0); NEUT % 73.1 % (47.0-73.0); PLATELET COUNT AUTOMATED 326 10*3/uL (130-400); RED BLOOD COUNT 5.09 10*6/uL (4.50-5.90); RED CELL DISTRI WIDTH 13.2 % (0-14.5); WHITE BLOOD COUNT 12.4 10*3/uL (4.8-10.8)
[2021-03-08 20:23] LABS: ALBUMIN 3.9 gm/dl (3.1-4.5); ALKALINE PHOSPHATASE 102 U/L (45-117); BUN 23 mg/dl (7-24); CHLORIDE 104 mmol/L (98-107); CREATININE 1.26 mg/dL (0.70-1.30); LIPASE 32 U/L (73-393); POTASSIUM 3.7 mmol/L (3.5-5.1); SGOT/AST 13 IU/L (3-35); SGPT/ALT 28 U/L (12-78); SODIUM 139 mmol/L (136-145); TOTAL PROTEIN 7.3 gm/dL (6.4-8.2)
[2021-03-08] MEDS ORDERED: PHENERGAN25 M3 PO (23:25)
== END 2021-03-08 23:40 | disposition home or self-care (01) ==
LOC: ED 18:57
PROVIDERS: Internal Medicine
DX: R11.15 Cyclical vomiting syndrome unrelated to migraine (principal); D72.829 Elevated white blood cell count, unspecified; E11.65 Type 2 diabetes mellitus with hyperglycemia; Z88.8 Allergy status to other drugs, medicaments and biological substances; Z79.899 Other long term (current) drug therapy; Z87.891 Personal history of nicotine dependence

== ENCOUNTER 2021-03-09 00:41 | Emergency (ER) | payer OTHER ==
[~2021-03-09] VITALS: Ht 187.9 cm; Wt 77.1 kg
== END 2021-03-09 04:09 | disposition home or self-care (01) ==
LOC: ED 00:41
DX: R11.15 Cyclical vomiting syndrome unrelated to migraine (principal); Z88.8 Allergy status to other drugs, medicaments and biological substances; Z79.899 Other long term (current) drug therapy; F17.200 Nicotine dependence, unspecified, uncomplicated

== ENCOUNTER 2021-04-04 17:44 | Emergency (ER) | payer OTHER ==
[~2021-04-04] VITALS: Ht 185.4 cm; Wt 72.6 kg
[2021-04-04 20:30] LABS: BASO # 0.1 10*3/uL (0.0-0.1); BASO % 0.5 % (0.0-1.0); LYMPH # 0.8 10*3/uL (1.3-4.4); LYMPH % 7.5 % (27.0-41.0); MEAN CELL VOLUME 89.6 fl (80.0-94.0); MEAN CORPUSCULAR HGB 29.6 pg (27.0-31.0); MONO # 0.2 10*3/uL (0.1-1.0); MONO % 2.2 % (3.0-9.0); NEUT # 9.9 10*3/uL (2.3-7.9); NEUT % 89.4 % (47.0-73.0); PLATELET COUNT AUTOMATED 299 10*3/uL (130-400); RED CELL DISTRI WIDTH 13.5 % (0-14.5); WHITE BLOOD COUNT 11.1 10*3/uL (4.8-10.8)
[2021-04-04 20:45] LABS: ALBUMIN 3.8 gm/dl (3.1-4.5); ALKALINE PHOSPHATASE 120 U/L (45-117); BUN 15 mg/dl (7-24); CHLORIDE 102 mmol/L (98-107); CREATININE 1.01 mg/dL (0.70-1.30); POTASSIUM 4.3 mmol/L (3.5-5.1); SGOT/AST 22 IU/L (3-35); SGPT/ALT 31 U/L (12-78); SODIUM 136 mmol/L (136-145); TOTAL PROTEIN 7.2 gm/dL (6.4-8.2)
[2021-04-05 02:00] LABS: BUN 15 mg/dl (7-24); CHLORIDE 104 mmol/L (98-107); CREATININE 0.92 mg/dL (0.70-1.30); POTASSIUM 4.2 mmol/L (3.5-5.1); SODIUM 137 mmol/L (136-145)
[2021-04-05 06:50] LABS: BUN 19 mg/dl (7-24); CHLORIDE 106 mmol/L (98-107); CREATININE 0.93 mg/dL (0.70-1.30); POTASSIUM 4.2 mmol/L (3.5-5.1); SODIUM 139 mmol/L (136-145)
[2021-04-05] MEDS ORDERED: PHENERGAN25 M3 PO (10:10)
== END 2021-04-05 10:00 | disposition home or self-care (01) ==
LOC: ED 17:44
PROVIDERS: Internal Medicine; Physician Assistant
DX: R11.15 Cyclical vomiting syndrome unrelated to migraine (principal); F12.90 Cannabis use, unspecified, uncomplicated; E11.65 Type 2 diabetes mellitus with hyperglycemia; F17.200 Nicotine dependence, unspecified, uncomplicated; Z79.4 Long term (current) use of insulin; Z88.8 Allergy status to other drugs, medicaments and biological substances; Z79.899 Other long term (current) drug therapy

== ENCOUNTER 2021-05-19 10:29 | Emergency (ER) | payer OTHER ==
[~2021-05-19] VITALS: Ht 185.4 cm; Wt 74.8 kg
[2021-05-19 11:14] LABS: BASO # 0.1 10*3/uL (0.0-0.1); EOS % 0.2 % (1.0-4.0); HEMATOCRIT 45.4 % (42.0-52.0); LYMPH # 1.6 10*3/uL (1.3-4.4); LYMPH % 13.2 % (27.0-41.0); MEAN CELL VOLUME 87.1 fl (80.0-94.0); MEAN CORPUSCULAR HGB 29.8 pg (27.0-31.0); MEAN CORPUSCULAR HGB CONC 34.1 g/dl (33.0-37.0); MEAN PLATELET VOLUME 10.3 fl (9.6-12.3); MONO # 0.3 10*3/uL (0.1-1.0); MONO % 2.5 % (3.0-9.0); NEUT # 10.1 10*3/uL (2.3-7.9); NEUT % 82.8 % (47.0-73.0); PLATELET COUNT AUTOMATED 287 10*3/uL (130-400); RED BLOOD COUNT 5.21 10*6/uL (4.50-5.90); RED CELL DISTRI WIDTH 12.5 % (0-14.5); WHITE BLOOD COUNT 12.2 10*3/uL (4.8-10.8)
[2021-05-19 11:15] LABS: VENOUS PH 7.489 (7.37-7.45)
[2021-05-19 11:33] LABS: ALKALINE PHOSPHATASE 119 U/L (45-117); BUN 20 mg/dl (7-24); CHLORIDE 103 mmol/L (98-107); CREATININE 1.22 mg/dL (0.70-1.30); POTASSIUM 4.1 mmol/L (3.5-5.1); SGOT/AST 17 IU/L (3-35); SGPT/ALT 23 U/L (12-78); SODIUM 135 mmol/L (136-145); TOTAL PROTEIN 7.8 gm/dL (6.4-8.2)
[2021-05-19] MEDS ORDERED: REGLAN5 MG PO (12:04)
[2021-05-19] MEDS ORDERED: CARAFATE1 GM PO (12:04)
[2021-05-19 13:25] LABS: BILIRUBIN Negative (Negative); BLOOD Negative (Negative); CLARITY Clear (Clear); COLOR Yellow (Yellow); GLUCOSE 3+ (Negative); KETONE 3+ (Negative); LEUKO ESTERASE Negative (Negative); NITRITE Negative (Negative); SPECIFIC GRAVITY >= 1.030 (1.001-1.030); UROBILINOGEN 0.2 E.U./dl (0.0-1.0)
[2021-05-19 13:30] LABS: BACTERIA TRACE; EPITHELIAL CELLS 0-2; WBC 0-2 wbc/hpf (0-5)
[2021-05-19 13:31] LABS: URINE AMPHETAMINES < 1000 (1000ng/ml); URINE BARBITURATES < 200 (200ng/ml); URINE BENZODIAZEPINES < 200 (200ng/ml); URINE CANNABINOIDS (THC) > 50 (50ng/ml); URINE COCAINE < 300 (300ng/ml); URINE METHADONE < 300 (300ng/ml); URINE OPIATES < 300 (300ng/ml); URINE PHENCYCLIDINE < 25 (25ng/ml)
[2021-05-19] MEDS ORDERED: ZOFRAN4 MG PO (13:45)
[2021-05-20] MEDS ORDERED: HUMALOG100 UNIT/1 SC (03:03)
[2021-05-20] MEDS ORDERED: NEURONTIN300 MG PO (03:04)
[2021-05-20] MEDS ORDERED: LANTUS SOL100 UNIT/1 SC (03:51)
[2021-05-20] MEDS ORDERED: REGLAN10 M1 PO (15:40)
[2021-05-20] MEDS ORDERED: PROTONIX40 MG PO (15:41)
[2021-05-20] MEDS ORDERED: CELEXA20 MG PO (15:41)
== END 2021-05-19 15:21 | disposition home or self-care (01) ==
LOC: ED 10:29
PROVIDERS: Student in an Organized Health Care Education/Training Program
DX: E11.9 Type 2 diabetes mellitus without complications (principal); R11.10 Vomiting, unspecified; F17.200 Nicotine dependence, unspecified, uncomplicated; Z88.8 Allergy status to other drugs, medicaments and biological substances; Z79.899 Other long term (current) drug therapy; Z90.49 Acquired absence of other specified parts of digestive tract; Z98.890 Other specified postprocedural states

== ENCOUNTER 2021-05-20 01:47 | Emergency (ER) | payer OTHER ==
[2021-05-20 02:16] LABS: BASO % 0.3 % (0.0-1.0); HEMATOCRIT 45.8 % (42.0-52.0); LYMPH # 1.1 10*3/uL (1.3-4.4); LYMPH % 6.6 % (27.0-41.0); MEAN CELL VOLUME 88.9 fl (80.0-94.0); MEAN CORPUSCULAR HGB 29.7 pg (27.0-31.0); MEAN CORPUSCULAR HGB CONC 33.4 g/dl (33.0-37.0); MEAN PLATELET VOLUME 10.6 fl (9.6-12.3); MONO # 0.5 10*3/uL (0.1-1.0); MONO % 2.8 % (3.0-9.0); NEUT # 14.3 10*3/uL (2.3-7.9); PLATELET COUNT AUTOMATED 339 10*3/uL (130-400); RED BLOOD COUNT 5.15 10*6/uL (4.50-5.90); RED CELL DISTRI WIDTH 12.6 % (0-14.5); WHITE BLOOD COUNT 15.9 10*3/uL (4.8-10.8)
[2021-05-20 02:31] LABS: ALKALINE PHOSPHATASE 132 U/L (45-117); BUN 26 mg/dl (7-24); CHLORIDE 94 mmol/L (98-107); CREATININE 1.49 mg/dL (0.70-1.30); LIPASE 35 U/L (73-393); SGOT/AST 21 IU/L (3-35); SGPT/ALT 24 U/L (12-78); SODIUM 130 mmol/L (136-145)
[2021-05-20 02:35] LABS: POTASSIUM 5.1 mmol/L (3.5-5.1)
[2021-05-20] MEDS ORDERED: HUMALOG100 UNIT/1 SC (03:03)
[2021-05-20] MEDS ORDERED: NEURONTIN300 MG PO (03:04)
[2021-05-20] MEDS ORDERED: LANTUS SOL100 UNIT/1 SC (03:51)
[2021-05-20] MEDS ORDERED: REGLAN10 M1 PO (15:40)
[2021-05-20] MEDS ORDERED: PROTONIX40 MG PO (15:41)
[2021-05-20] MEDS ORDERED: CELEXA20 MG PO (15:41)
== END 2021-05-20 02:30 | disposition left against medical advice (07) ==
LOC: ED 01:47
PROVIDERS: Emergency Medicine
DX: R11.2 Nausea with vomiting, unspecified (principal); Z88.8 Allergy status to other drugs, medicaments and biological substances; Z79.899 Other long term (current) drug therapy; Z90.49 Acquired absence of other specified parts of digestive tract; Z98.890 Other specified postprocedural states; Z87.891 Personal history of nicotine dependence

== ENCOUNTER 2021-05-20 02:47 | Inpatient (IN) | payer OTHER ==
[~2021-05-20] VITALS: Ht 185.4 cm; Wt 72.8 kg
[2021-05-20] VITALS (7 sets, daily range): BP systolic 104–122; BP diastolic 52–77
[2021-05-20] MEDS ORDERED: HUMALOG100 UNIT/1 SC (03:03)
[2021-05-20] MEDS ORDERED: NEURONTIN300 MG PO (03:04)
[2021-05-20] MEDS ORDERED: LANTUS SOL100 UNIT/1 SC (03:51)
[2021-05-20 04:11] LABS: HEMATOCRIT 44.9 % (42.0-52.0); MEAN CELL VOLUME 88.4 fl (80.0-94.0); MEAN CORPUSCULAR HGB 29.5 pg (27.0-31.0); MEAN CORPUSCULAR HGB CONC 33.4 g/dl (33.0-37.0); MEAN PLATELET VOLUME 10.2 fl (9.6-12.3); PLATELET COUNT AUTOMATED 374 10*3/uL (130-400); RED BLOOD COUNT 5.08 10*6/uL (4.50-5.90); RED CELL DISTRI WIDTH 12.9 % (0-14.5); WHITE BLOOD COUNT 22.3 10*3/uL (4.8-10.8)
[2021-05-20 04:13] LABS: MANUAL DIFF REFLEX YES
[2021-05-20 04:30] LABS: ALBUMIN 4.3 gm/dl (3.1-4.5); ALKALINE PHOSPHATASE 124 U/L (45-117); BUN 26 mg/dl (7-24); CHLORIDE 98 mmol/L (98-107); SGOT/AST 19 IU/L (3-35); SGPT/ALT 25 U/L (12-78); SODIUM 129 mmol/L (136-145)
[2021-05-20 04:46] LABS: POTASSIUM 6.3 mmol/L (3.5-5.1)
[2021-05-20 04:57] LABS: PLATELET SUFFICIENCY NORMAL (NORMAL); TOTAL CELLS COUNTED 100 #CELLS
[2021-05-20 08:52] LABS: BUN 26 mg/dl (7-24); CHLORIDE 108 mmol/L (98-107); CREATININE 1.34 mg/dL (0.70-1.30); SODIUM 139 mmol/L (136-145)
[2021-05-20 08:58] LABS: POTASSIUM 4.2 mmol/L (3.5-5.1)
[2021-05-20 09:34] LABS: BILIRUBIN Negative (Negative); BLOOD Negative (Negative); CLARITY Clear (Clear); COLOR Yellow (Yellow); GLUCOSE 3+ (Negative); KETONE 4+ (Negative); LEUKO ESTERASE Negative (Negative); NITRITE Negative (Negative); SPECIFIC GRAVITY >= 1.030 (1.001-1.030); UROBILINOGEN 0.2 E.U./dl (0.0-1.0)
[2021-05-20 09:46] LABS: BACTERIA TRACE; WBC 0-2 wbc/hpf (0-5)
[2021-05-20 09:47] LABS: EPITHELIAL CELLS 0-2
[2021-05-20 11:20] LABS: BUN 26 mg/dl (7-24); CHLORIDE 111 mmol/L (98-107); CREATININE 1.14 mg/dL (0.70-1.30); POTASSIUM 4.3 mmol/L (3.5-5.1); SODIUM 140 mmol/L (136-145)
[2021-05-20 14:23] LABS: BUN 24 mg/dl (7-24); CHLORIDE 112 mmol/L (98-107); CREATININE 1.11 mg/dL (0.70-1.30); POTASSIUM 4.1 mmol/L (3.5-5.1); SODIUM 141 mmol/L (136-145)
[2021-05-20] MEDS ORDERED: REGLAN10 M1 PO (15:40)
[2021-05-20] MEDS ORDERED: CELEXA20 MG PO (15:41)
[2021-05-20] MEDS ORDERED: PROTONIX40 MG PO (15:41)
[2021-05-20 17:17] LABS: BUN 23 mg/dl (7-24); CHLORIDE 104 mmol/L (98-107); CREATININE 0.99 mg/dL (0.70-1.30); POTASSIUM 4.4 mmol/L (3.5-5.1); SODIUM 133 mmol/L (136-145)
== END 2021-05-20 18:26 | disposition left against medical advice (07) | DRG 871 ==
LOC: ED 02:47 → EDHOLD 03:19 → ICCU 04:01
PROVIDERS: Internal Medicine; ADMIT Emergency Medicine; ATTEND Emergency Medicine
DX: A41.9 Sepsis, unspecified organism (principal); E10.10 Type 1 diabetes mellitus with ketoacidosis without coma; N17.0 Acute kidney failure with tubular necrosis; F41.1 Generalized anxiety disorder; J45.20 Mild intermittent asthma, uncomplicated; E10.42 Type 1 diabetes mellitus with diabetic polyneuropathy; K21.9 Gastro-esophageal reflux disease without esophagitis; K31.84 Gastroparesis; F32.A Depression, unspecified; F12.90 Cannabis use, unspecified, uncomplicated; Z53.29 Procedure and treatment not carried out because of patient's decision for other reasons; Z88.8 Allergy status to other drugs, medicaments and biological substances; Z90.49 Acquired absence of other specified parts of digestive tract; Z82.49 Family history of ischemic heart disease and other diseases of the circulatory system; Z82.0 Family history of epilepsy and other diseases of the nervous system; Z79.4 Long term (current) use of insulin

== ENCOUNTER 2021-06-27 09:42 | Emergency (ER) | payer OTHER ==
[~2021-06-27] VITALS: Ht 185.4 cm; Wt 77.1 kg
[~2021-06-27 09:42] MED LIST changes: +HUMALOG100 UNIT/1 SC; +NEURONTIN300 MG PO
[2021-06-27 10:15] LABS: BASO # 0.1 10*3/uL (0.0-0.1); BASO % 0.9 % (0.0-1.0); EOS % 0.1 % (1.0-4.0); HEMATOCRIT 38.5 % (42.0-52.0); LYMPH # 1.3 10*3/uL (1.3-4.4); LYMPH % 17.1 % (27.0-41.0); MEAN CELL VOLUME 87.3 fl (80.0-94.0); MEAN CORPUSCULAR HGB 30.4 pg (27.0-31.0); MEAN CORPUSCULAR HGB CONC 34.8 g/dl (33.0-37.0); MEAN PLATELET VOLUME 10.3 fl (9.6-12.3); MONO # 0.4 10*3/uL (0.1-1.0); NEUT % 76.6 % (47.0-73.0); PLATELET COUNT AUTOMATED 271 10*3/uL (130-400); RED BLOOD COUNT 4.41 10*6/uL (4.50-5.90); RED CELL DISTRI WIDTH 12.7 % (0-14.5); WHITE BLOOD COUNT 7.9 10*3/uL (4.8-10.8)
[2021-06-27 10:34] LABS: BUN 12 mg/dl (7-24); CHLORIDE 102 mmol/L (98-107); CREATININE 0.74 mg/dL (0.70-1.30); POTASSIUM 3.6 mmol/L (3.5-5.1); SGOT/AST 15 IU/L (3-35); SGPT/ALT 17 U/L (12-78); SODIUM 137 mmol/L (136-145); TOTAL PROTEIN 6.1 gm/dL (6.4-8.2)
[2021-06-27 10:35] LABS: ALKALINE PHOSPHATASE 80 U/L (45-117)
== END 2021-06-27 12:33 | disposition home or self-care (01) ==
LOC: ED 09:42
PROVIDERS: Emergency Medicine
DX: R11.10 Vomiting, unspecified (principal); Z88.8 Allergy status to other drugs, medicaments and biological substances; Z79.899 Other long term (current) drug therapy; Z90.49 Acquired absence of other specified parts of digestive tract; Z98.890 Other specified postprocedural states

== ENCOUNTER 2021-07-25 01:01 | Emergency (ER) | payer OTHER ==
[~2021-07-25] VITALS: Ht 182.8 cm; Wt 77.1 kg
[2021-07-25 03:10] LABS: BASO # 0.1 10*3/uL (0.0-0.1); BASO % 1.2 % (0.0-1.0); EOS # 0.4 10*3/uL (0.0-0.4); HEMATOCRIT 39.2 % (42.0-52.0); LYMPH # 3.1 10*3/uL (1.3-4.4); LYMPH % 45.2 % (27.0-41.0); MEAN CELL VOLUME 85.6 fl (80.0-94.0); MEAN CORPUSCULAR HGB 29.9 pg (27.0-31.0); MEAN CORPUSCULAR HGB CONC 34.9 g/dl (33.0-37.0); MEAN PLATELET VOLUME 9.7 fl (9.6-12.3); MONO # 0.6 10*3/uL (0.1-1.0); MONO % 9.2 % (3.0-9.0); NEUT # 2.7 10*3/uL (2.3-7.9); NEUT % 38.3 % (47.0-73.0); PLATELET COUNT AUTOMATED 249 10*3/uL (130-400); RED BLOOD COUNT 4.58 10*6/uL (4.50-5.90); RED CELL DISTRI WIDTH 12.9 % (0-14.5)
[2021-07-25 03:28] LABS: ALKALINE PHOSPHATASE 97 U/L (45-117); BUN 16 mg/dl (7-24); CHLORIDE 111 mmol/L (98-107); CREATININE 1.02 mg/dL (0.70-1.30); POTASSIUM 2.8 mmol/L (3.5-5.1); SGOT/AST 11 IU/L (3-35); SGPT/ALT 21 U/L (12-78); SODIUM 143 mmol/L (136-145); TOTAL PROTEIN 6.6 gm/dL (6.4-8.2)
[2021-07-25] MEDS ORDERED: K-TAB20 MEQ PO (04:04)
[2021-07-25] MEDS ORDERED: CLARITIN10 MG PO (04:04)
[2021-07-25] MEDS ORDERED: BENZONATATE100 M1 PO (04:04)
[2021-07-25] MEDS ORDERED: VIBRAMYCIN100 MG PO (04:04)
== END 2021-07-25 04:06 | disposition left against medical advice (07) ==
LOC: ED 01:01
PROVIDERS: Emergency Medicine
DX: J06.9 Acute upper respiratory infection, unspecified (principal); Z20.822 Contact with and (suspected) exposure to COVID-19; J40 Bronchitis, not specified as acute or chronic; E87.6 Hypokalemia; K21.9 Gastro-esophageal reflux disease without esophagitis; F17.200 Nicotine dependence, unspecified, uncomplicated; Z88.8 Allergy status to other drugs, medicaments and biological substances; E10.9 Type 1 diabetes mellitus without complications; Z79.899 Other long term (current) drug therapy; Z90.49 Acquired absence of other specified parts of digestive tract; Z98.890 Other specified postprocedural states

== ENCOUNTER 2021-09-17 18:42 | Emergency (ER) | payer OTHER ==
[~2021-09-17] VITALS: Ht 185.4 cm; Wt 77.1 kg
[~2021-09-17 18:42] MED LIST changes: +BENZONATATE100 M1 PO; +CLARITIN10 MG PO; +K-TAB20 MEQ PO; +VIBRAMYCIN100 MG PO
[2021-09-17 19:41] LABS: BASO # 0.1 10*3/uL (0.0-0.1); BASO % 0.4 % (0.0-1.0); HEMATOCRIT 46.8 % (42.0-52.0); LYMPH # 0.9 10*3/uL (1.3-4.4); LYMPH % 7.4 % (27.0-41.0); MEAN CELL VOLUME 87.8 fl (80.0-94.0); MEAN CORPUSCULAR HGB 29.1 pg (27.0-31.0); MEAN CORPUSCULAR HGB CONC 33.1 g/dl (33.0-37.0); MEAN PLATELET VOLUME 10.3 fl (9.6-12.3); MONO # 0.3 10*3/uL (0.1-1.0); MONO % 2.5 % (3.0-9.0); NEUT # 10.3 10*3/uL (2.3-7.9); NEUT % 89.4 % (47.0-73.0); PLATELET COUNT AUTOMATED 267 10*3/uL (130-400); RED BLOOD COUNT 5.33 10*6/uL (4.50-5.90); RED CELL DISTRI WIDTH 12.9 % (0-14.5); WHITE BLOOD COUNT 11.6 10*3/uL (4.8-10.8)
[2021-09-17 19:55] LABS: ALKALINE PHOSPHATASE 89 U/L (45-117); BUN 13 mg/dl (7-24); CHLORIDE 104 mmol/L (98-107); CREATININE 0.96 mg/dL (0.70-1.30); POTASSIUM 4.3 mmol/L (3.5-5.1); SGOT/AST 15 IU/L (3-35); SGPT/ALT 22 U/L (12-78); SODIUM 139 mmol/L (136-145); TOTAL PROTEIN 7.6 gm/dL (6.4-8.2)
[2021-09-17 20:56] LABS: BILIRUBIN Negative (Negative); BLOOD Negative (Negative); CLARITY Clear (Clear); COLOR Yellow (Yellow); GLUCOSE 3+ (Negative); KETONE 4+ (Negative); LEUKO ESTERASE Negative (Negative); NITRITE Negative (Negative); SPECIFIC GRAVITY >= 1.030 (1.001-1.030); UROBILINOGEN 0.2 E.U./dl (0.0-1.0)
[2021-09-17 21:04] LABS: EPITHELIAL CELLS 0-2; MUCOUS 1+
[2021-09-18] MEDS ORDERED: ZOFRAN4 MG PO (00:42)
== END 2021-09-18 02:45 | disposition home or self-care (01) ==
LOC: ED 18:42
PROVIDERS: Internal Medicine
DX: R11.15 Cyclical vomiting syndrome unrelated to migraine (principal); E11.65 Type 2 diabetes mellitus with hyperglycemia; Z88.8 Allergy status to other drugs, medicaments and biological substances; Z79.899 Other long term (current) drug therapy; Z90.49 Acquired absence of other specified parts of digestive tract; Z98.890 Other specified postprocedural states; Z87.891 Personal history of nicotine dependence

== ENCOUNTER 2021-12-30 11:11 | Emergency (ER) | payer OTHER ==
[~2021-12-30] VITALS: Ht 185.4 cm; Wt 79.4 kg
[~2021-12-30 11:11] MED LIST changes: +PROAIR HFA8.5 GM INH
[2021-12-30 11:36] LABS: BASO # 0.2 10*3/uL (0.0-0.1); BASO % 1.3 % (0.0-1.0); EOS # 0.1 10*3/uL (0.0-0.4); EOS % 1.1 % (1.0-4.0); HEMATOCRIT 44.8 % (42.0-52.0); LYMPH # 3.4 10*3/uL (1.3-4.4); LYMPH % 30.3 % (27.0-41.0); MEAN CELL VOLUME 87.7 fl (80.0-94.0); MEAN CORPUSCULAR HGB 29.9 pg (27.0-31.0); MEAN CORPUSCULAR HGB CONC 34.2 g/dl (33.0-37.0); MEAN PLATELET VOLUME 10.1 fl (9.6-12.3); MONO # 0.7 10*3/uL (0.1-1.0); MONO % 6.3 % (3.0-9.0); NEUT # 6.8 10*3/uL (2.3-7.9); NEUT % 60.7 % (47.0-73.0); PLATELET COUNT AUTOMATED 295 10*3/uL (130-400); RED BLOOD COUNT 5.11 10*6/uL (4.50-5.90); WHITE BLOOD COUNT 11.2 10*3/uL (4.8-10.8)
[2021-12-30 11:57] LABS: ALKALINE PHOSPHATASE 70 U/L (45-117); BUN 28 mg/dl (7-24); CHLORIDE 104 mmol/L (98-107); CREATININE 1.35 mg/dL (0.70-1.30); LIPASE 121 U/L (73-393); POTASSIUM 3.6 mmol/L (3.5-5.1); SGOT/AST 20 IU/L (3-35); SGPT/ALT 30 U/L (12-78); SODIUM 137 mmol/L (136-145)
[2021-12-30] MEDS ORDERED: ONDANSETRON HYDR4 M1 PO (16:22)
== END 2021-12-30 16:25 | disposition home or self-care (01) ==
LOC: ED 11:11
PROVIDERS: Emergency Medicine
DX: R11.15 Cyclical vomiting syndrome unrelated to migraine (principal); Z20.822 Contact with and (suspected) exposure to COVID-19; K21.9 Gastro-esophageal reflux disease without esophagitis; E10.9 Type 1 diabetes mellitus without complications; J45.909 Unspecified asthma, uncomplicated; Z88.8 Allergy status to other drugs, medicaments and biological substances; Z79.899 Other long term (current) drug therapy; Z90.49 Acquired absence of other specified parts of digestive tract; Z98.890 Other specified postprocedural states; Z87.891 Personal history of nicotine dependence

== ENCOUNTER 2022-01-27 18:52 | Emergency (ER) | payer OTHER ==
[~2022-01-27] VITALS: Ht 172.7 cm; Wt 56.7 kg
[~2022-01-27 18:52] MED LIST changes: +ONDANSETRON HYDR4 M1 PO
[2022-01-27 20:11] LABS: MEAN CELL VOLUME 87.6 fl (80.0-94.0); MEAN CORPUSCULAR HGB 29.9 pg (27.0-31.0); MEAN CORPUSCULAR HGB CONC 34.2 g/dl (33.0-37.0); MEAN PLATELET VOLUME 10.5 fl (9.6-12.3); PLATELET COUNT AUTOMATED 302 10*3/uL (130-400); RED BLOOD COUNT 4.91 10*6/uL (4.50-5.90); RED CELL DISTRI WIDTH 13.2 % (0-14.5); WHITE BLOOD COUNT 11.9 10*3/uL (4.8-10.8)
[2022-01-27 20:12] LABS: MANUAL DIFF REFLEX YES
[2022-01-27 20:24] LABS: ACT PARTIAL THROMBO TIME 23.1 SECONDS (20.0-32.1)
[2022-01-27 20:29] LABS: ALKALINE PHOSPHATASE 71 U/L (45-117); BUN 21 mg/dl (7-24); CHLORIDE 103 mmol/L (98-107); CREATININE 1.09 mg/dL (0.70-1.30); LIPASE 61 U/L (73-393); SGOT/AST 16 IU/L (3-35); SGPT/ALT 20 U/L (12-78); SODIUM 139 mmol/L (136-145); TOTAL PROTEIN 7.2 gm/dL (6.4-8.2)
[2022-01-27 20:45] LABS: PLATELET SUFFICIENCY NORMAL (NORMAL); TOTAL CELLS COUNTED 100 #CELLS
[2022-01-27 20:46] LABS: BURR CELLS MODERATE; TARGET CELLS FEW
[2022-01-28 00:33] LABS: BILIRUBIN Negative (Negative); BLOOD Negative (Negative); CLARITY Clear (Clear); COLOR Yellow (Yellow); GLUCOSE 3+ (Negative); KETONE 3+ (Negative); LEUKO ESTERASE Negative (Negative); NITRITE Negative (Negative); PH 5.5 (4.5-8.0); SPECIFIC GRAVITY >= 1.030 (1.001-1.030); UROBILINOGEN 0.2 E.U./dl (0.0-1.0)
[2022-01-28 00:44] LABS: WBC 0-2 wbc/hpf (0-5)
== END 2022-01-28 01:50 | disposition home or self-care (01) ==
LOC: ED 18:52
PROVIDERS: Family Medicine
DX: R11.15 Cyclical vomiting syndrome unrelated to migraine (principal); E10.9 Type 1 diabetes mellitus without complications; R45.4 Irritability and anger; F91.9 Conduct disorder, unspecified; F17.200 Nicotine dependence, unspecified, uncomplicated; Z88.8 Allergy status to other drugs, medicaments and biological substances; Z79.899 Other long term (current) drug therapy; Z90.49 Acquired absence of other specified parts of digestive tract; Z98.890 Other specified postprocedural states

== ENCOUNTER 2023-10-14 11:28 | Emergency (ER) | payer OTHER ==
[~2023-10-14] VITALS: Ht 185.4 cm; Wt 81.6 kg
[2023-10-14] MEDS ORDERED: NEURONTIN300 MG PO ×2 (13:50→14:31)
[2023-10-14] MEDS ORDERED: LANTUS SOL100 UNIT/1 SC ×2 (13:50→14:31)
== END 2023-10-14 14:10 | disposition home or self-care (01) ==
LOC: ED 11:28
DX: Z76.0 Encounter for issue of repeat prescription (principal); E10.9 Type 1 diabetes mellitus without complications; F41.9 Anxiety disorder, unspecified; F32.A Depression, unspecified; J45.909 Unspecified asthma, uncomplicated; F17.200 Nicotine dependence, unspecified, uncomplicated; F12.10 Cannabis abuse, uncomplicated; Z87.442 Personal history of urinary calculi; Z88.8 Allergy status to other drugs, medicaments and biological substances; Z90.49 Acquired absence of other specified parts of digestive tract; Z98.890 Other specified postprocedural states

== ENCOUNTER 2023-12-17 07:16 | Inpatient (IN) | payer OTHER ==
[~2023-12-17] VITALS: Ht 185.4 cm; Wt 81.6 kg
[2023-12-17] VITALS (7 sets, daily range): BP systolic 97–119; BP diastolic 40–85
[2023-12-17] MEDS ORDERED: Metoclopramide Hydrochloride 10 MG/2 ML AMP IV ONE (07:35)
[2023-12-17] MEDS ORDERED: SODIUM CHLORIDE 0.9% 1,000 ML IV ONE (07:35)
[2023-12-17] MEDS ORDERED: diphenhydrAMINE hydrochloride 50 MG/ML VIAL IV ONE (07:35)
[2023-12-17 07:49] LABS: BASO # 0.1 10*3/uL (0.0-0.1); BASO % 0.8 % (0.0-1.0); HEMATOCRIT 43.5 % (42.0-52.0); LYMPH # 1.4 10*3/uL (1.3-4.4); LYMPH % 9.6 % (27.0-41.0); MEAN CELL VOLUME 88.1 fl (80.0-94.0); MEAN CORPUSCULAR HGB 29.1 pg (27.0-31.0); MEAN CORPUSCULAR HGB CONC 33.1 g/dl (33.0-37.0); MEAN PLATELET VOLUME 9.8 fl (9.6-12.3); MONO # 0.5 10*3/uL (0.1-1.0); MONO % 3.7 % (3.0-9.0); NEUT # 12.3 10*3/uL (2.3-7.9); NEUT % 85.4 % (47.0-73.0); PLATELET COUNT AUTOMATED 335 10*3/uL (130-400); RED BLOOD COUNT 4.94 10*6/uL (4.50-5.90); RED CELL DISTRI WIDTH 13.1 % (0-14.5); WHITE BLOOD COUNT 14.4 10*3/uL (4.8-10.8)
[2023-12-17 08:12] LABS: BUN 14 mg/dl (9-23); CHLORIDE 102 mmol/L (98-107); POTASSIUM 4.2 mmol/L (3.4-5.1)
[2023-12-17] MEDS ORDERED: Ketorolac Tromethamine 15 MG/ML VIAL IV ONE (09:25)
[2023-12-17] MEDS ORDERED: Ondansetron Hydrochloride 4 MG/2 ML VIAL IV PRN ×2 (09:35→14:34)
[2023-12-17] MEDS ORDERED: Enoxaparin Sodium 40 MG/0.4 ML SYR SC SCH (10:00)
[2023-12-17 11:10] LABS: URINE AMPHETAMINES Negative (1000ng/ml); URINE BARBITURATES Negative (200ng/ml); URINE BENZODIAZEPINES Negative (200ng/ml); URINE CANNABINOIDS (THC) Positive (50ng/ml); URINE COCAINE Negative (300ng/ml); URINE METHADONE Negative (300ng/ml); URINE OPIATES Negative (300ng/ml); URINE PHENCYCLIDINE Negative (25ng/ml)
[2023-12-17] MEDS ORDERED: DEXTROSE 5% IN LACTATED RINGER 1,000 ML IV SCH (11:10)
[2023-12-17] MEDS ORDERED: DEXTROSE 10 % IN WATER 250 ML IV PRN (11:10)
[2023-12-17] MEDS ORDERED: INSULIN REGULAR, HUMAN 1 UNIT/0.01 ML IV ONE (11:10)
[2023-12-17] MEDS ORDERED: INSULIN REGULAR, HUMAN 1 UNIT/0.01 ML SC ONE (11:10)
[2023-12-17] MEDS ORDERED: Ondansetron Hydrochloride 4 MG/2 ML VIAL IV ONE (11:15)
[2023-12-17] MEDS ORDERED: fentaNYL CITRATE 100 MCG/2 ML VIAL IV PRN (11:15)
[2023-12-17] MEDS ORDERED: fentaNYL CITRATE 100 MCG/2 ML VIAL IV ONE (11:15)
[2023-12-17 11:16] LABS: BILIRUBIN Negative (Negative); BLOOD Negative (Negative); CLARITY Clear (Clear); COLOR Yellow (Yellow); GLUCOSE 3+ (Negative); KETONE 4+ (Negative); LEUKO ESTERASE Negative (Negative); NITRITE Negative (Negative); PH 5.5 (4.5-8.0); SPECIFIC GRAVITY >= 1.030 (1.001-1.030); UROBILINOGEN 0.2 E.U./dl (0.0-1.0)
[2023-12-17] MEDS ORDERED: INSULIN LISPRO 1 UNIT/0.01 ML SQ SCH (16:30)
[2023-12-17] MEDS ORDERED: Metoclopramide Hydrochloride 10 MG/2 ML AMP IV SCH (16:30)
[2023-12-17] MEDS ORDERED: LORazepam 2 MG/ML VIAL IV ONE (18:30)
[2023-12-17 18:54] LABS: BUN 21 mg/dl (9-23); CHLORIDE 106 mmol/L (98-107); POTASSIUM 3.7 mmol/L (3.4-5.1)
[2023-12-17] MEDS ORDERED: Lactated Ringer's Solution 1,000 ML IV ONE (21:40)
[2023-12-17] MEDS ORDERED: GABAPENTIN 300 MG CAP PO SCH (22:00)
[2023-12-17] MEDS ORDERED: Ondansetron Hydrochloride 4 MG/2 ML VIAL IV SCH (22:00)
[2023-12-18 04:38] VITALS: BP 103/49
[2023-12-18 07:19] LABS: BASO # 0.1 10*3/uL (0.0-0.1); BASO % 0.7 % (0.0-1.0); EOS % 0.2 % (1.0-4.0); HEMATOCRIT 38.1 % (42.0-52.0); LYMPH # 2.4 10*3/uL (1.3-4.4); LYMPH % 22.2 % (27.0-41.0); MEAN CELL VOLUME 87.8 fl (80.0-94.0); MEAN CORPUSCULAR HGB 29.5 pg (27.0-31.0); MEAN CORPUSCULAR HGB CONC 33.6 g/dl (33.0-37.0); MEAN PLATELET VOLUME 9.9 fl (9.6-12.3); MONO % 8.9 % (3.0-9.0); NEUT # 7.3 10*3/uL (2.3-7.9); NEUT % 67.6 % (47.0-73.0); PLATELET COUNT AUTOMATED 265 10*3/uL (130-400); RED BLOOD COUNT 4.34 10*6/uL (4.50-5.90); RED CELL DISTRI WIDTH 13.4 % (0-14.5); WHITE BLOOD COUNT 10.7 10*3/uL (4.8-10.8)
[2023-12-18 07:32] LABS: ACT PARTIAL THROMBO TIME 24.1 SECONDS (20.0-32.1)
[2023-12-18 07:57] LABS: ALKALINE PHOSPHATASE 78 U/L (46-116); BUN 15 mg/dl (9-23); CHLORIDE 103 mmol/L (98-107); CHOLESTEROL 158 mg/dL (<200); FREE T4 1.17 ng/dl (0.89-1.76); LDL CHOLESTEROL 85 mg/dL (9-159); SGPT/ALT 16 U/L (5-49); TOTAL PROTEIN 5.7 gm/dL (6.0-8.0); TRIGLYCERIDES 70 mg/dl (<150)
[2023-12-18 08:13] LABS: VITAMIN D, 25-HYDROXY 54.2 ng/mL (30-100)
[2023-12-18 10:30] VITALS: BP 97/67
[2023-12-18] MEDS ORDERED: Ketorolac Tromethamine 30 MG/ML VIAL IV SCH (14:15)
[2023-12-18] MEDS ORDERED: SODIUM CHLORIDE 0.9% 1,000 ML IV ONE (14:15)
[2023-12-18] MEDS ORDERED: Pantoprazole Sodium 40 MG VIAL IV SCH (14:15)
[2023-12-18] MEDS ORDERED: fentaNYL CITRATE 100 MCG/2 ML VIAL IV PRN (14:16)
[2023-12-18] MEDS ORDERED: Acetaminophen/Hydrocodone 5 MG/325 MG TABLET PO PRN (14:20)
[2023-12-18 14:58] VITALS: BP 87/51; BP 90/51
[2023-12-18 16:42] VITALS: BP 103/66
[2023-12-18] MEDS ORDERED: LANTUS SOL100 UNIT/1 SC (17:10)
[2023-12-18] MEDS ORDERED: Metoclopramide Hydrochloride 10 MG/2 ML AMP IV SCH (18:00)
== END 2023-12-18 18:05 | disposition home or self-care (01) | DRG 74 ==
LOC: ED 07:16 → EDHOLD 08:42
PROVIDERS: Internal Medicine; Student in an Organized Health Care Education/Training Program; ADMIT Internal Medicine; ATTEND Internal Medicine
DX: E10.43 Type 1 diabetes mellitus with diabetic autonomic (poly)neuropathy (principal); K31.84 Gastroparesis; N20.0 Calculus of kidney; F41.1 Generalized anxiety disorder; E10.65 Type 1 diabetes mellitus with hyperglycemia; R11.15 Cyclical vomiting syndrome unrelated to migraine; D72.829 Elevated white blood cell count, unspecified; K21.9 Gastro-esophageal reflux disease without esophagitis; F32.9 Major depressive disorder, single episode, unspecified; E10.49 Type 1 diabetes mellitus with other diabetic neurological complication; Z81.8 Family history of other mental and behavioral disorders; Z82.49 Family history of ischemic heart disease and other diseases of the circulatory system; Z88.8 Allergy status to other drugs, medicaments and biological substances

== ENCOUNTER 2024-02-08 10:25 | Emergency (ER) | payer OTHER ==
[~2024-02-08] VITALS: Ht 185.4 cm; Wt 79.4 kg
[2024-02-08] MEDS ORDERED: SODIUM CHLORIDE 0.9% 1,000 ML IV ONE (10:45)
[2024-02-08] MEDS ORDERED: diphenhydrAMINE hydrochloride 50 MG/ML VIAL IV ONE (10:45)
[2024-02-08] MEDS ORDERED: FAMOTIDINE 50 ML IV ONE (10:45)
[2024-02-08] MEDS ORDERED: Promethazine Hydrochloride 25 MG/ML VIAL IV ONE (10:45)
[2024-02-08] MEDS ORDERED: Prochlorperazine Edisylate 10 MG/2 ML VIAL IV ONE (10:45)
[2024-02-08] MEDS ORDERED: MORPHINE Sulfate 2 MG/ML SYR IV ONE (10:45)
[2024-02-08 11:05] LABS: BASO # 0.2 10*3/uL (0.0-0.1); BASO % 2.1 % (0.0-1.0); EOS # 0.1 10*3/uL (0.0-0.4); EOS % 1.3 % (1.0-4.0); HEMATOCRIT 45.1 % (42.0-52.0); MEAN CELL VOLUME 88.6 fl (80.0-94.0); MEAN CORPUSCULAR HGB 29.9 pg (27.0-31.0); MEAN CORPUSCULAR HGB CONC 33.7 g/dl (33.0-37.0); MONO # 0.6 10*3/uL (0.1-1.0); MONO % 7.4 % (3.0-9.0); NEUT # 3.4 10*3/uL (2.3-7.9); NEUT % 45.7 % (47.0-73.0); PLATELET COUNT AUTOMATED 321 10*3/uL (130-400); RED BLOOD COUNT 5.09 10*6/uL (4.50-5.90); RED CELL DISTRI WIDTH 12.9 % (0-14.5); WHITE BLOOD COUNT 7.5 10*3/uL (4.8-10.8)
[2024-02-08 11:56] LABS: BUN 23 mg/dl (9-23); CHLORIDE 104 mmol/L (98-107); LIPASE 37 U/L (12-53); POTASSIUM 3.8 mmol/L (3.4-5.1)
[2024-02-08] MEDS ORDERED: COMPAZINE10 M1 PO (12:08)
== END 2024-02-08 12:13 | disposition home or self-care (01) ==
LOC: ED 10:25
PROVIDERS: Emergency Medicine
DX: R10.13 Epigastric pain (principal); R11.15 Cyclical vomiting syndrome unrelated to migraine; E10.9 Type 1 diabetes mellitus without complications; K21.9 Gastro-esophageal reflux disease without esophagitis; I10 Essential (primary) hypertension; E78.5 Hyperlipidemia, unspecified; F41.9 Anxiety disorder, unspecified; F32.A Depression, unspecified; J45.909 Unspecified asthma, uncomplicated; Z87.442 Personal history of urinary calculi; F12.10 Cannabis abuse, uncomplicated; F17.200 Nicotine dependence, unspecified, uncomplicated; Z88.8 Allergy status to other drugs, medicaments and biological substances; Z90.49 Acquired absence of other specified parts of digestive tract; Z98.890 Other specified postprocedural states

== ENCOUNTER 2024-03-13 09:51 | Emergency (ER) | payer OTHER ==
[~2024-03-13] VITALS: Ht 185.4 cm; Wt 83.9 kg
[~2024-03-13 09:51] MED LIST changes: +COMPAZINE10 M1 PO
[2024-03-13] MEDS ORDERED: AMOX-CLAV 875-1 EACH PO (10:46)
[2024-03-13] MEDS ORDERED: Tdap Vaccine 0.5 ML SYR (Adult Vaccine) IM ONE (10:55)
== END 2024-03-13 10:52 | disposition home or self-care (01) ==
LOC: ED 09:51
DX: S01.81XA Laceration without foreign body of other part of head, initial encounter (principal); F41.9 Anxiety disorder, unspecified; E11.9 Type 2 diabetes mellitus without complications; F32.A Depression, unspecified; J45.909 Unspecified asthma, uncomplicated; F12.10 Cannabis abuse, uncomplicated; F17.200 Nicotine dependence, unspecified, uncomplicated; Z87.442 Personal history of urinary calculi; Z88.8 Allergy status to other drugs, medicaments and biological substances; Z90.49 Acquired absence of other specified parts of digestive tract; Z98.890 Other specified postprocedural states; W54.0XXA Bitten by dog, initial encounter; Y93.89 Activity, other specified; Y92.89 Other specified places as the place of occurrence of the external cause; Y99.8 Other external cause status

== ENCOUNTER 2024-03-30 11:22 | Emergency (ER) | payer OTHER ==
[~2024-03-30 11:22] MED LIST changes: +AMOX-CLAV 875-1 EACH PO
[2024-03-30] MEDS ORDERED: SODIUM CHLORIDE 0.9% 1,000 ML IV ONE (12:10)
[2024-03-30] MEDS ORDERED: Metoclopramide Hydrochloride 10 MG/2 ML VIAL IV ONE (12:10)
[2024-03-30] MEDS ORDERED: MORPHINE Sulfate 2 MG/ML SYR IV ONE (12:10)
[2024-03-30] MEDS ORDERED: Acetaminophen/Hydrocodone 5 MG/325 MG TABLET PO ONE (12:20)
[2024-03-30 12:36] LABS: BASO # 0.1 10*3/uL (0.0-0.1); BASO % 0.8 % (0.0-1.0); EOS % 0.2 % (1.0-4.0); HEMATOCRIT 45.5 % (42.0-52.0); MEAN CELL VOLUME 89.2 fl (80.0-94.0); MEAN CORPUSCULAR HGB 29.2 pg (27.0-31.0); MEAN CORPUSCULAR HGB CONC 32.7 g/dl (33.0-37.0); MEAN PLATELET VOLUME 9.8 fl (9.6-12.3); MONO # 0.3 10*3/uL (0.1-1.0); MONO % 3.1 % (3.0-9.0); NEUT # 6.6 10*3/uL (2.3-7.9); NEUT % 79.5 % (47.0-73.0); PLATELET COUNT AUTOMATED 305 10*3/uL (130-400); RED CELL DISTRI WIDTH 12.6 % (0-14.5); WHITE BLOOD COUNT 8.4 10*3/uL (4.8-10.8)
[2024-03-30] MEDS ORDERED: Prochlorperazine Edisylate 10 MG/2 ML VIAL IV ONE ×2 (12:40→13:15)
[2024-03-30] MEDS ORDERED: Promethazine Hydrochloride 25 MG/ML VIAL IV ONE (12:50)
[2024-03-30 12:54] LABS: BUN 12 mg/dl (9-23); CHLORIDE 108 mmol/L (98-107); POTASSIUM 4.5 mmol/L (3.4-5.1)
[2024-03-30] MEDS ORDERED: COMPAZINE10 M1 PO (13:33)
== END 2024-03-30 13:49 | disposition home or self-care (01) ==
LOC: ED 11:22
PROVIDERS: Nurse Practitioner Family
DX: R11.15 Cyclical vomiting syndrome unrelated to migraine (principal); F41.9 Anxiety disorder, unspecified; E11.9 Type 2 diabetes mellitus without complications; F32.A Depression, unspecified; J45.909 Unspecified asthma, uncomplicated; F17.200 Nicotine dependence, unspecified, uncomplicated; F12.10 Cannabis abuse, uncomplicated; Z87.442 Personal history of urinary calculi; Z88.8 Allergy status to other drugs, medicaments and biological substances; Z90.49 Acquired absence of other specified parts of digestive tract; Z98.890 Other specified postprocedural states